=== PATIENT | female | born 1945 | race Caucasian/White ===

== ENCOUNTER 2016-10-18 15:10 | Inpatient (IN) | payer OTHER ==
[~2016-10-18] VITALS: Ht 152.4 cm; Wt 56.0 kg
[~2016-10-18 15:10] MED LIST: ASPI325T45 PO; CALC-214; CHOL100010 PO; IPRA1AER2 INH; LORA-741 PO; MOME200A INH; MULT-506 PO; SIMV10TA2 PO
[2016-10-18] MEDS ORDERED: LEVALBUTEROL 1.25MG/0.5ML NEB INH STA (15:43)
[2016-10-18] MEDS ORDERED: METHYLPREDNISOLONE 125 MG VIAL IV STA (15:43)
[2016-10-18] MEDS ORDERED: IPRATROPIUM BROMIDE NEB SOLN 0.02% 2.5 ML VIAL INH STA (15:43)
[2016-10-18 15:52] LABS: BASO ABS # 0.01 K/uL (0-0.2); COMPLETE YES; HEMATOCRIT 31.9 % (37-47); IG% 0.4 %; LYMPH % 4.6 %; LYMPH ABS # 0.94 K/uL (1.2-3.4); MEAN CELL VOLUME 75.2 fL (80-100); MEAN CORPUSCULAR HEMOGLOBIN 25.9 pg (25-34); MEAN CORPUSCULAR HGB CONC 34.5 g/dl (32-36); MONO % 1.6 %; NEUT % 93.4 %; PLATELET COUNT 789 K/uL (130-400); RED BLOOD COUNT 4.24 M/uL (4.2-5.4); WHITE BLOOD COUNT 20.61 K/uL (4.8-10.8)
--- NOTE | 2016-10-18 15:58 | EMERGENCY ROOM VISIT NOTE ---
History Report prepared by Lillian: Jose Alfredo Smiley Under the Supervision of: Dr. Hero Fleming M.D. First contact with patient: 15:37 Chief Complaint: RESPIRATORY DISTRESS Stated Complaint: RESPIRATORY DISTRESS Nursing Triage Summary: sob started Sunday, started prednisone yesterday History of Present Illness The patient is a 71 year old female who presents to the Emergency Room via ambulance with complaints of worsening shortness of breath beginning four days prior to arrival. She states she called her doctor's office yesterday morning, who prescribed prednisone. The patient notes she took a total of four prednisone dispersed throughout the day. She states she called her doctor this morning, who told her she needed to take all four pills at once. The patient notes she took the dose at 11 AM and has not had any relief from the steroid. She states the ambulance gave her one nebulizer treatment which provided some relief. The patient denies wearing oxygen normally. She states she does have an inhaler and nebulizer at home. The patient notes a history of COPD, emphysema, and a lesion on her right bottom lung. She states she had CTs and a biopsy performed on her lesion, in which, the tests were inconclusive. The patient notes her doctor recommended getting it removed, but she refused. She denies chest pain and a fever. 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 A total of 10 systems reviewed and were otherwise negative. Past Medical & Surgical Medical Problems: (1) COPD (chronic obstructive pulmonary disease) (2) Emphysema (subcutaneous) (surgical) resulting from a procedure Family History Patient reports no known family medical history. Social History Smoking Status: Current Every Day Smoker Marital Status: Occupation Status: employed Current/Historical Medications Scheduled Aspirin (Aspirin Ec), 81 MG PO DAILY Cholecalciferol (Vitamin D), 1,000 UNIT PO DAILY Ipratropium-Albuterol (Duoneb), 1 TREATMENT INH QID Lorazepam (Ativan), 0.5 MG PO HS Mometasone Furoate-Formoterol (Dulera 200/5 Mcg), 2 PUFFS INH DAILY Multiple Vitamins W/ Minerals (Multivitamin Adults 50+), 1 TAB PO DAILY Prednisone (Prednisone), 40 MG PO DAILY Simvastatin (Zocor), 10 MG PO QPM Allergies Uncoded Allergies: anesthesia gas (Allergy, Unknown, sick, 03/17/16) Physical Exam Vital Signs Date Time Temp Pulse Resp B/P Pulse Ox O2 Delivery O2 Flow Rate FiO2 10/18/16 16:47 93 Nasal Cannula 2.0 10/18/16 16:40 96 21 94 10/18/16 16:28 163/83 10/18/16 16:10 95 22 96 10/18/16 15:58 142/79 10/18/16 15:44 90 10/18/16 15:40 101 24 94 10/18/16 15:33 93 Nasal Cannula 2.0 10/18/16 15:33 89 Room Air 10/18/16 15:30 36.4 97 27 147/84 Room Air 10/18/16 15:29 147/84 Physical Exam GENERAL: Patient is in no acute distress. HEENT: No acute trauma, normocephalic atraumatic, mucous membranes moist, no nasal congestion, no scleral icterus. NECK: No stridor, no adenopathy, no meningismus, trachea is midline. LUNGS: Mild respiratory distress noted. Speaking in shorter sentences. There is an increased respiratory rate. Diminished breath sounds bilaterally. Breath sounds are equal bilaterally. Wheezes noted. HEART: Without murmurs gallops or rubs, regular rate and rhythm. ABDOMEN: Soft, nontender, bowel sounds positive, no hernias, no peritonitis. EXTREMITIES: No cyanosis or edema, full range of motion of all the joints without pain or difficulty, no signs for acute trauma. NEUROLOGIC: Oriented x 3, no acute motor or sensory deficits, no focal weakness. SKIN: No rash, no jaundice, no diaphoresis. Medical Decision & Procedures ER Provider Diagnostic Interpretation: X-ray results as stated below per interpretation by me and the radiologist: SINGLE VIEW CHEST CLINICAL HISTORY: Dyspnea. FINDINGS: An AP, portable, upright chest radiograph is compared to study dated 03/17/2016 and correlated with chest CT dated 02/17/2014. The examination is degraded by portable technique and patient rotation. The cardiomediastinal silhouette is unremarkable. There is atherosclerotic calcification of the thoracic aorta. Advanced emphysema and chronic interstitial thickening are similar to previous. A large mass lesion in the right lower lung has slightly increased in size from the 03/17/2016 examination. There is no evidence of superimposed airspace consolidation or pleural effusion. A calcified granulomas again seen in the left upper lobe. No pneumothorax is seen. The skeletal structures are osteopenic. The bony thorax is grossly intact. IMPRESSION: 1. There is no acute cardiopulmonary abnormality. 2. Advanced emphysema is again seen. A large mass lesion in the right lower lung has modestly increased in size from the 2016 examination. Electronically signed by: Hero Cabrera M.D. 10/18/2016 4:00 PM Laboratory Results 10/18/16 14:53 Red Blood Count 4.24, Mean Corpuscular Volume 75.2, Mean Corpuscular Hemoglobin 25.9, Mean Corpuscular Hemoglobin Concent 34.5, Mean Platelet Volume 8.0, Neutrophils (%) (Auto) 93.4, Lymphocytes (%) (Auto) 4.6, Monocytes (%) (Auto) 1.6, Eosinophils (%) (Auto) 0.0, Basophils (%) (Auto) 0.0, Neutrophils # (Auto) 19.26, Lymphocytes # (Auto) 0.94, Monocytes # (Auto) 0.32, Eosinophils # (Auto) 0.00, Basophils # (Auto) 0.01 10/18/16 14:53 Test 10/18/16 14:53 10/18/16 16:25 White Blood Count 20.61 K/uL (4.8-10.8) Red Blood Count 4.24 M/uL (4.2-5.4) Hemoglobin 11.0 g/dL (12.0-16.0) Hematocrit 31.9 % (37-47) Mean Corpuscular Volume 75.2 fL (80-100) Mean Corpuscular Hemoglobin 25.9 pg (25-34) Mean Corpuscular Hemoglobin Concent 34.5 g/dl (32-36) Platelet Count 789 K/uL (130-400) Mean Platelet Volume 8.0 fL (7.4-10.4) Neutrophils (%) (Auto) 93.4 % Lymphocytes (%) (Auto) 4.6 % Monocytes (%) (Auto) 1.6 % Eosinophils (%) (Auto) 0.0 % Basophils (%) (Auto) 0.0 % Neutrophils # (Auto) 19.26 K/uL (1.4-6.5) Lymphocytes # (Auto) 0.94 K/uL (1.2-3.4) Monocytes # (Auto) 0.32 K/uL (0.11-0.59) Eosinophils # (Auto) 0.00 K/uL (0-0.5) Basophils # (Auto) 0.01 K/uL (0-0.2) RDW Standard Deviation 43.8 fL (36.4-46.3) RDW Coefficient of Variation 16.0 % (11.5-14.5) Immature Granulocyte % (Auto) 0.4 % Immature Granulocyte # (Auto) 0.08 K/uL (0.00-0.02) Prothrombin Time 10.7 SECONDS (9.0-12.0) Prothromb Time International Ratio 1.0 (0.9-1.1) Activated Partial Thromboplast Time 34.3 SECONDS (21.0-31.0) Partial Thromboplastin Ratio 1.3 Anion Gap 13.0 mmol/L (3-11) Est Creatinine Clear Calc Drug Dose 52.7 ml/min Estimated GFR () 89.3 Estimated GFR (Non- 77.0 BUN/Creatinine Ratio 15.8 (10-20) Osmolality 274 mOsm/kg (280-300) Calcium Level 10.5 mg/dl (8.5-10.1) Total Bilirubin 0.2 mg/dl (0.2-1) Aspartate Amino Transf (AST/SGOT) 19 U/L (15-37) Alanine Aminotransferase (ALT/SGPT) 24 U/L (12-78) Alkaline Phosphatase 109 U/L (45-117) Troponin I < 0.015 ng/ml (0-0.045) Total Protein 9.0 gm/dl (6.4-8.2) Albumin 2.9 gm/dl (3.4-5.0) Globulin 6.1 gm/dl (2.5-4.0) Albumin/Globulin Ratio 0.5 (0.9-2) Urine Osmolality 352 mOms/kg (500-800) Laboratory results reviewed by me. Medications Administered Medications (Trade) Dose Ordered Sig/Channing Route Start Time Stop Time Status Last Admin Dose Admin Methylprednisolone Sodium Succinate (Solu-Medrol IV) 60 mg NOW STAT IV 10/18/16 15:43 10/18/16 15:46 DC 10/18/16 16:43 60 MG Levalbuterol (Xopenex 1.25MG/ 0.5ML Neb) 1.25 mg NOW STAT INH 10/18/16 15:43 10/18/16 15:46 DC 10/18/16 16:50 1.25 MG Ipratropium [place] (Atrovent 0.02% 0.5MG/2.5ML Neb) 0.5 mg NOW STAT INH 10/18/16 15:43 10/18/16 15:46 DC 10/18/16 16:50 0.5 MG Ceftriaxone Sodium (Rocephin Inj) 1 gm NOW STAT IV 10/18/16 16:27 10/18/16 16:28 DC 10/18/16 16:43 1 GM ECG Indication: SOB/dyspnea Rate (beats per minute): 94 Rhythm: normal sinus Findings: no acute ischemic change, no ectopy ED Course 1539: The patient was evaluated in room A12B. A complete history and physical exam was performed. 1543: Ordered Ipratropium [place] 0.5 mg INH, Levalbuterol 1.25 mg INH, Solu- Medrol IV 60 mg IV. 1627: Ordered Rocephin Inj 1 gm IV. 1638: Reevaluated the patient at this time and updated her on the test results. She is agreeable to the treatment plan. 1640: I spoke to CHON Chiu (Hospitalist) about the patient's case, and he will follow the patient for further evaluation. Medical Decision The differential diagnoses include but are not limited to: exacerbation of COPD , pneumonia, pneumothorax, CHF, cardiac ischemia, failed outpatient treatment. There is a significant leukocytosis at 20,000. This could be consistent with infection or possibly her steroid use. No concerning anemia. No significant electrolyte abnormality, kidney failure or hepatitis. EKG shows a normal sinus rhythm, no acute ischemia. Cardiac enzyme testing times one is not suggestive of acute cardiac injury. Chest film shows a right lung mass consistent with her past history, it appears larger than previous films. There is no pneumonia or pneumothorax. The patient was given a Xopenex Atrovent neb, she received IV saline, she was given IV Solu-Medrol and IV ceftriaxone. The patient requires admission/observation. She is failing outpatient treatment. She very likely has an acute bronchitis with an exacerbation of her COPD. She feels better since being treated here in the ER. Consults Time Called: 1639 Consulting Physician: CHON Chiu (Hospitalist) Returned Call: 1640 I spoke to CHON Chiu (Hospitalist) about the patient's case, and he will follow the patient for further evaluation. Impression Primary Impression: COPD exacerbation Additional Impression: Acute bronchitis Scribe Attestation The scribe's documentation has been prepared under my direction and personally reviewed by me in its entirety. I confirm that the note above accurately reflects all work, treatment, procedures, and medical decision making performed by me. Departure Information Dispostion Being Evaluated By Hospitalist (HCON Chiu (Hospitalist)) Referrals Sanjay Pedroza D.O. Pulmonary (PCP) Problem Qualifiers
[2016-10-18 15:59] LABS: PARTIAL THROMBOPLASTIN RATIO 1.3; PROTHROMBIN TIME (PATIENT) 10.7 SECONDS (9.0-12.0)
[2016-10-18 16:02] LABS: ALT/SGPT 24 U/L (12-78); AST/SGOT 19 U/L (15-37); BLOOD UREA NITROGEN 12 mg/dl (7-18); BUN/CREATININE RATIO 15.8 (10-20); CALCIUM 10.5 mg/dl (8.5-10.1); CARBON DIOXIDE 24 mmol/L (21-32); CHLORIDE 92 mmol/L (98-107); CREATININE 0.78 mg/dl (0.60-1.20); GLUCOSE 136 mg/dl (70-99); POTASSIUM 4.2 mmol/L (3.5-5.1); SODIUM 129 mmol/L (136-145)
--- NOTE | 2016-10-18 16:02 | DIAGNOSTIC IMAGING REPORT ---
SINGLE VIEW CHEST CLINICAL HISTORY: Dyspnea. FINDINGS: An AP, portable, upright chest radiograph is compared to study dated 03/17/2016 and correlated with chest CT dated 02/17/2014. The examination is degraded by portable technique and patient rotation. The cardiomediastinal silhouette is unremarkable. There is atherosclerotic calcification of the thoracic aorta. Advanced emphysema and chronic interstitial thickening are similar to previous. A large mass lesion in the right lower lung has slightly increased in size from the 03/17/2016 examination. There is no evidence of superimposed airspace consolidation or pleural effusion. A calcified granulomas again seen in the left upper lobe. No pneumothorax is seen. The skeletal structures are osteopenic. The bony thorax is grossly intact. IMPRESSION: 1. There is no acute cardiopulmonary abnormality. 2. Advanced emphysema is again seen. A large mass lesion in the right lower lung has modestly increased in size from the 2016 examination. Electronically signed by: Hero Cabrera M.D. 10/18/2016 4:00 PM Dictated Date/Time: 10/18/2016 3:57 PM
[2016-10-18 16:07] LABS: ALB/GLOB RATIO 0.5 (0.9-2); ALKALINE PHOSPHATASE 109 U/L (45-117)
[2016-10-18] MEDS ORDERED: CEFTRIAXONE SOD INJ 1 GM ADDVIAL IV STA (16:27)
[2016-10-18] MEDS ORDERED: IPRASOL4 INH (16:29)
[2016-10-18] MEDS ORDERED: MULT-916 PO (16:29)
[2016-10-18] MEDS ORDERED: CHOL100010 PO (16:29)
[2016-10-18] MEDS ORDERED: ASPI81TA28 PO (16:30)
[2016-10-18] MEDS ORDERED: PRED10TA PO (16:30)
[2016-10-18] MEDS ORDERED: ONDANSETRON INJ 2 MG/ML 2 ML VIAL IV PRN (17:00)
--- NOTE | 2016-10-18 17:28 | History and Physical ---
History & Physical Date & Time of Service: Oct 18, 2016 at 17:15 Chief Complaint: Respiratory Distress Primary Care Physician: Sanjay Pedroza D.O. Pulmonary History of Present Illness Source: patient, family, hospital records 71 yo female with history of COPD/emphysema followed by Dr. Pedroza, she started to feel more short of breath with a harsh cough on Sunday (5 days ago). She was compliant with her home inhalers and tried to utilize her nebulizers more frequently but her breathing and the cough got worse. No fever or chills. The cough is intermittently productive, her sputum is thicker than normal. Two days ago she was prescribed Prednisone 40mg daily by Dr. Pedroza but her breathing deteriorated to the point that she called EMS today. In the ED she was slightly hypoxic with saturations in the high 80's on room air. The CXR did not show any signs of pneumonia, it did show a right sided mass that has been there since 2010. The patient was given Solumedrol, nebulizers and she started to feel better. She admits that she has been drinking fluids but not eating much the past few days. Discussed the right sided mass, she says that Dr. Pedroza performed a bronchoscopy with biopsies and no evidence of malignant cells. He has been watching the mass and she is actually due for a repeat CT scan of the chest. The CXR in the ED showed that the mass was slightly larger compared to 2016 study so we will get the CT while in the hospital. Past Medical/Surgical History Medical Problems: (1) COPD (chronic obstructive pulmonary disease) Status: Chronic (2) Emphysema (subcutaneous) (surgical) resulting from a procedure Status: Chronic Family History Mother - of lymphoma Father - of Campbell's chorea Social History Smoking Status: Current Every Day Smoker Marital Status: Occupational Status: employed Multi-Drug Resistant Organisms History of MDRO: No Allergies Uncoded Allergies: anesthesia gas (Allergy, Unknown, sick, 03/17/16) Home Medications Scheduled Aspirin (Aspirin Ec), 81 MG PO DAILY Cholecalciferol (Vitamin D), 1,000 UNIT PO DAILY Ipratropium-Albuterol (Duoneb), 1 TREATMENT INH QID Lorazepam (Ativan), 0.5 MG PO HS Mometasone Furoate-Formoterol (Dulera 200/5 Mcg), 2 PUFFS INH DAILY Multiple Vitamins W/ Minerals (Multivitamin Adults 50+), 1 TAB PO DAILY Prednisone (Prednisone), 40 MG PO DAILY Simvastatin (Zocor), 10 MG PO QPM Review of Systems Constitutional: + fatigue, + weakness, No chills, No fever, No problem reported , No sweats, No weight loss Eyes: No diplopia, No discharge, No eye pain, No problem reported, No redness, No worsening of vision ENT: No dental problems, No hearing loss, No nasal symptoms, No problem reported, No sore throat, No tinnitus, No trouble swallowing, No unusual epistaxis Respiratory: + cough, + dyspnea at rest, + dyspnea on exertion, + shortness of breath, + sputum, + wheezing, No hemoptysis Cardiovascular: No PND, No chest pain, No claudication, No edema, No orthopnea , No palpitations, No problem reported Abdomen: + problem reported (poor appetite), No GI bleeding, No constipation, No diarrhea, No nausea, No pain, No vomiting Musculoskeletal: No calf pain, No joint pain, No muscle pain, No problem reported, No swelling Genitourinary - Female: No dysuria, No hematuria, No urinary frequency, No urinary incontinence, No urinary retention, No urinary urgency Neurologic: No balance problems, No memory loss, No numbness/tingling, No paralysis, No problem reported, No vertigo, No weakness Endocrine: No excessive thirst, No excessive urination, No fatigue, No problem reported Hematologic / Lymphatic: No abnormal bleeding/bruising, No clotting problems, No night sweats, No problem reported, No swollen lymph nodes Integumentary: No bleeding, No color change, No itch, No new/changing skin lesions, No problem reported, No rash Allergic / Immunologic: No environmental allergies, No food allergies, No frequent infections, No hives, No pet sensitivities, No poor healing, No problem reported, No prolonged convalescence, No seasonal allergies Physical Exam Vital Signs Date Time Temp Pulse Resp B/P Pulse Ox O2 Delivery O2 Flow Rate FiO2 10/18/16 16:47 93 Nasal Cannula 2.0 10/18/16 16:40 96 21 94 10/18/16 16:28 163/83 10/18/16 16:10 95 22 96 10/18/16 15:58 142/79 10/18/16 15:44 90 10/18/16 15:40 101 24 94 10/18/16 15:33 93 Nasal Cannula 2.0 10/18/16 15:33 89 Room Air 10/18/16 15:30 36.4 97 27 147/84 Room Air 10/18/16 15:29 147/84 General Appearance: no apparent distress, + thin Head: normocephalic, atraumatic Eyes: normal inspection, EOMI, sclerae normal ENT: normal ENT inspection, hearing grossly normal, pharynx normal Neck: supple, no adenopathy, no JVD, trachea midline Respiratory/Chest: chest non-tender, no respiratory distress, no accessory muscle use, + decreased breath sounds, + wheezing Cardiovascular: regular rate, rhythm, no edema, no gallop, no JVD, no murmur, normal peripheral pulses Abdomen/GI: normal bowel sounds, non tender, soft, no organomegaly Back: normal inspection, no CVA tenderness, no muscle spasm, normal range of motion Extremities/Musculoskelatal: normal inspection, no calf tenderness, normal capillary refill, no pedal edema, normal range of motion, pelvis stable Neurologic/Psych: social media specialist II-XII nml as tested, no motor/sensory deficits, alert, normal mood/affect, normal reflexes, oriented x 3 Skin: normal color, warm/dry, no rash Lymphatic: no adenopathy Diagnostics Laboratory Results Results Past 24 Hours Test 10/18/16 14:53 Range/Units White Blood Count 20.61 4.8-10.8 K/uL Red Blood Count 4.24 4.2-5.4 M/uL Hemoglobin 11.0 12.0-16.0 g/dL Hematocrit 31.9 37-47 % Mean Corpuscular Volume 75.2 80-100 fL Mean Corpuscular Hemoglobin 25.9 25-34 pg Mean Corpuscular Hemoglobin Concent 34.5 32-36 g/dl Platelet Count 789 130-400 K/uL Mean Platelet Volume 8.0 7.4-10.4 fL Neutrophils (%) (Auto) 93.4 % Lymphocytes (%) (Auto) 4.6 % Monocytes (%) (Auto) 1.6 % Eosinophils (%) (Auto) 0.0 % Basophils (%) (Auto) 0.0 % Neutrophils # (Auto) 19.26 1.4-6.5 K/uL Lymphocytes # (Auto) 0.94 1.2-3.4 K/uL Monocytes # (Auto) 0.32 0.11-0.59 K/uL Eosinophils # (Auto) 0.00 0-0.5 K/uL Basophils # (Auto) 0.01 0-0.2 K/uL RDW Standard Deviation 43.8 36.4-46.3 fL RDW Coefficient of Variation 16.0 11.5-14.5 % Immature Granulocyte % (Auto) 0.4 % Immature Granulocyte # (Auto) 0.08 0.00-0.02 K/uL Prothrombin Time 10.7 9.0-12.0 SECONDS Prothromb Time International Ratio 1.0 0.9-1.1 Activated Partial Thromboplast Time 34.3 21.0-31.0 SECONDS Partial Thromboplastin Ratio 1.3 Sodium Level 129 136-145 mmol/L Potassium Level 4.2 3.5-5.1 mmol/L Chloride Level 92 98-107 mmol/L Carbon Dioxide Level 24 21-32 mmol/L Anion Gap 13.0 3-11 mmol/L Blood Urea Nitrogen 12 7-18 mg/dl Creatinine 0.78 0.60-1.20 mg/dl Est Creatinine Clear Calc Drug Dose 52.7 ml/min Estimated GFR () 89.3 Estimated GFR (Non- 77.0 BUN/Creatinine Ratio 15.8 10-20 Random Glucose 136 70-99 mg/dl Calcium Level 10.5 8.5-10.1 mg/dl Total Bilirubin 0.2 0.2-1 mg/dl Aspartate Amino Transf (AST/SGOT) 19 15-37 U/L Alanine Aminotransferase (ALT/SGPT) 24 12-78 U/L Alkaline Phosphatase 109 45-117 U/L Troponin I < 0.015 0-0.045 ng/ml Total Protein 9.0 6.4-8.2 gm/dl Albumin 2.9 3.4-5.0 gm/dl Globulin 6.1 2.5-4.0 gm/dl Albumin/Globulin Ratio 0.5 0.9-2 Microbiology Results 10/18/16 Blood Culture, Received Pending 10/18/16 Blood Culture, Received Pending Diagnostic Radiology CXR: right sided mass, larger compared to 2016 study, no evidence of infiltrate Normal EKG Impression Assessment and Plan 71 yo female with h/o emphysema, here with acute bronchitis and COPD exacerbation - COPD exacerbation: Solumedrol 30mg q12, nebulizers, Rocephin and Zithromax resume home maintenance inhalers once breathing improved - Acute respiratory failure with hypoxia: supplemental oxygen, should resolve with COPD therapy - Right lung mass: slightly larger on chest x-ray compared to 2016, will get CT chest tomorrow follows with Dr. Pedroza, he performed biopsy in past with no malignancy patient says that Dr. Pedroza recommended resection of the mass but she refused , has been there since 2010 - Hyponatremia: likely due to dehydration, poor solute intake past few days, however, could be SIADH given the right lung mass check urine and serum osmolality, treat with NSS 75cc/hr - Hyperlipidemia: statin therapy - DVT prophylaxis: Lovenox Level of Care Med/Surg Resuscitation Status FULL RESUSCITATION VTE Prophylaxis VTE Risk Assessment Done? Y/N: Yes Risk Level: Moderate Given or contraindicated: Enoxaparin (Lovenox)SQ Additional Copies To Sanjay Pedroza D.O. Pulmonary
[2016-10-18] MEDS: SODIUM CHLORIDE 0.9% 1000ML 1,000 ML IV SCH (20:36)
[2016-10-18] MEDS: AZITHROMYCIN IV 500 MG in DEXTROSE 5% 250ML 250 ML IV SCH (20:36)
[2016-10-18] MEDS: LORAZEPAM 0.5 MG TAB PO SCH (20:37)
[2016-10-18] MEDS: METHYLPREDNISOLONE IV 30 MG in SYRINGE 0 ML IV SCH (20:37)
[2016-10-18] MEDS: SIMVASTATIN 10 MG TAB PO SCH (20:41)
[2016-10-18] MEDS: ALBUT/IPRATROP 3MG/0.5MG NEB 3 ML VIAL INH SCH (21:20)
[2016-10-18 21:22] VITALS: PULSE 76; O2SAT 98
[2016-10-18 23:14] VITALS: BP 127/64; PULSE 100; TEMP 36.5; O2SAT 94
[2016-10-19] VITALS (8 sets, daily range): BP systolic 102–118; BP diastolic 63–83; PULSE 86–93; TEMP 36.4–36.5; O2SAT 96–98; Ht 152.4 cm; Wt 56.0 kg
[2016-10-19] MEDS ORDERED: LORAZEPAM 0.5 MG TAB PO STA (00:59)
[2016-10-19] MEDS: SODIUM CHLORIDE 0.9% 1000ML 1,000 ML IV SCH ×2 (06:15→19:57)
[2016-10-19] MEDS: ALBUT/IPRATROP 3MG/0.5MG NEB 3 ML VIAL INH SCH ×4 (06:54→15:35)
[2016-10-19] MEDS: METHYLPREDNISOLONE IV 30 MG in SYRINGE 0 ML IV SCH ×2 (08:09→17:44)
[2016-10-19] MEDS: ENOXAPARIN 40 MG/0.4 ML SYR SQ SCH (08:15)
[2016-10-19] MEDS: CHOLECALCIFEROL 1000 INTER.UNIT TAB PO SCH (08:16)
[2016-10-19] MEDS: ASPIRIN 81 MG ECTAB PO SCH (08:16)
--- NOTE | 2016-10-19 09:26 | DIAGNOSTIC IMAGING REPORT ---
CHEST CT WITH CONTRAST CT DOSE: 240.37 mGy.cm HISTORY: Respiratory distress. right sided mass, larger on chest x-ray TECHNIQUE: Multiaxial CT images of the chest were performed following the intravenous administration of contrast. COMPARISON: Chest CT 02/17/2014. Chest 10/18/2016. FINDINGS: No pneumothorax. Emphysema. A 5 mm nodule within the lingula on image 204. There is a new spiculated nodule within the left lower lobe which measures 2.1 x 1.2 cm. Linear density within the medial aspect of the right middle lobe may represent atelectasis. Significant increase in size in a large mass which occupies the majority of the right lower lobe. This lesion measures 11 cm and appears necrotic. This encases the right lower lobar pulmonary arteries and right lower lobe bronchi. There is obstruction of the right lower lobe bronchi. Mildly enlarged right hilar lymph node measuring 11 mm. This large necrotic mass abuts the pleural surface. Mild cortical/periosteal thickening within the right posterior eighth and ninth ribs adjacent to the large lower lobe mass. However, there is no associated bony destruction. This mass also encases the right inferior pulmonary vein. No supraclavicular or mediastinal lymphadenopathy. The heart is normal in size. Normal caliber thoracic aorta. Calcified left hilar lymph nodes and a left upper lobe calcified granuloma. The central pulmonary arteries are patent. No pleural or pericardial effusions. No hepatic or splenic masses identified. Normal adrenal glands. There is a 4 cm mass within the upper pole of the left kidney. Small nodular densities and interlobular septal thickening at the base of the right lower lobe. This could be due to postobstructive pneumonitis or metastatic disease. Small fat-containing right Bochdalek hernia. IMPRESSION: 1. Significant increase in size in the 11 cm necrotic mass which occupies the majority of the right lower lobe and obstruction of right lower lobe bronchi. 2. Interval development of a spiculated 2.1 x 1.2 cm nodule within the left lower lobe and a 5 mm nodule within the lingula. This could represent metachronous primary bronchogenic malignancy versus metastatic disease. 3. A 4 cm mass within the upper pole of the left kidney. This likely represents a renal cell carcinoma. 4. Small nodular densities and interlobular septal thickening within the base of the right lower lobe which favors post obstructive pneumonitis. However, metastatic disease could also have a similar appearance. 6. Emphysema. 7. Mild cortical/periosteal thickening within the right posterior eighth and ninth ribs adjacent to the large lower lobe mass. However, there is no associated bony destruction. Electronically signed by: Silas Gross M.D. 10/19/2016 9:25 AM Dictated Date/Time: 10/19/2016 9:11 AM
--- NOTE | 2016-10-19 09:48 | Hospitalist Progress Note ---
Hospitalist Progress Note Date of Service Oct 19, 2016. (Christy David PA-C) Subjective Pt evaluation today including: conversation w/ patient, physical exam, chart review, lab review, review of studies, conversation w/ pharmacy consultant, review of inpatient medication list Patient reports feeling very winded this morning while ambulating to the bathroom. Still having a fairly nonproductive cough. No fever or chills. The patient was on prednisone 40 mg daily prior to arrival in the emergency department. She denies any chest pain or pressure. Additional Comments: 6 system review negative. Please see pertinent positives in the history of present illness section. (Christy David PA-C) Objective Vital Signs Date Time Temp Pulse Resp B/P Pulse Ox O2 Delivery O2 Flow Rate FiO2 10/19/16 06:54 92 20 96 Nasal Cannula 2.0 10/19/16 05:18 36.4 93 20 118/63 96 Nasal Cannula 2.0 10/18/16 23:14 36.5 100 18 127/64 94 Nasal Cannula 2.0 10/18/16 21:22 76 18 98 Nasal Cannula 3.0 10/18/16 17:58 95 18 117/84 94 Nasal Cannula 2.0 10/18/16 16:47 93 Nasal Cannula 2.0 10/18/16 16:40 96 21 94 10/18/16 16:28 163/83 10/18/16 16:10 95 22 96 10/18/16 15:58 142/79 10/18/16 15:44 90 10/18/16 15:40 101 24 94 10/18/16 15:33 93 Nasal Cannula 2.0 10/18/16 15:33 89 Room Air 10/18/16 15:30 36.4 97 27 147/84 Room Air 10/18/16 15:29 147/84 (Christy David PA-C) Physical Exam Notes: VITALS: Vitals are noted on the nurse's note and reviewed by myself. Vital signs stable. GENERAL: 71-year-old female in moderate respiratory distress standing up by the bathroom sink, SKIN: The skin was without rashes, erythema, edema, or bruising. HEAD: Normocephalic atraumatic. NECK: No lymphadenopathy. No JVD. HEART: Regular rate and rhythm without murmurs gallops or rubs. LUNGS: Decreased breath sounds at the bases right greater than left. No significant wheezing noted. ABDOMEN: Positive bowel sounds x 4.Soft, MUSCULOSKELETAL: No muscle atrophy, erythema, or edema noted. Normal gait. Strength 5/5 throughout. NEURO: Patient was alert and oriented to person place and time. Normal sensation to touch. No focal neurological deficits. (Christy David PA-C) Laboratory Results 10/18/16 14:53 Red Blood Count 4.24, Mean Corpuscular Volume 75.2, Mean Corpuscular Hemoglobin 25.9, Mean Corpuscular Hemoglobin Concent 34.5, Mean Platelet Volume 8.0, Neutrophils (%) (Auto) 93.4, Lymphocytes (%) (Auto) 4.6, Monocytes (%) (Auto) 1.6, Eosinophils (%) (Auto) 0.0, Basophils (%) (Auto) 0.0, Neutrophils # (Auto) 19.26, Lymphocytes # (Auto) 0.94, Monocytes # (Auto) 0.32, Eosinophils # (Auto) 0.00, Basophils # (Auto) 0.01 Test 10/18/16 14:53 10/18/16 16:25 10/19/16 09:28 White Blood Count 20.61 K/uL (4.8-10.8) Red Blood Count 4.24 M/uL (4.2-5.4) Hemoglobin 11.0 g/dL (12.0-16.0) Hematocrit 31.9 % (37-47) Mean Corpuscular Volume 75.2 fL (80-100) Mean Corpuscular Hemoglobin 25.9 pg (25-34) Mean Corpuscular Hemoglobin Concent 34.5 g/dl (32-36) Platelet Count 789 K/uL (130-400) Mean Platelet Volume 8.0 fL (7.4-10.4) Neutrophils (%) (Auto) 93.4 % Lymphocytes (%) (Auto) 4.6 % Monocytes (%) (Auto) 1.6 % Eosinophils (%) (Auto) 0.0 % Basophils (%) (Auto) 0.0 % Neutrophils # (Auto) 19.26 K/uL (1.4-6.5) Lymphocytes # (Auto) 0.94 K/uL (1.2-3.4) Monocytes # (Auto) 0.32 K/uL (0.11-0.59) Eosinophils # (Auto) 0.00 K/uL (0-0.5) Basophils # (Auto) 0.01 K/uL (0-0.2) RDW Standard Deviation 43.8 fL (36.4-46.3) RDW Coefficient of Variation 16.0 % (11.5-14.5) Immature Granulocyte % (Auto) 0.4 % Immature Granulocyte # (Auto) 0.08 K/uL (0.00-0.02) Prothrombin Time 10.7 SECONDS (9.0-12.0) Prothromb Time International Ratio 1.0 (0.9-1.1) Activated Partial Thromboplast Time 34.3 SECONDS (21.0-31.0) Partial Thromboplastin Ratio 1.3 Est Creatinine Clear Calc Drug Dose 52.7 ml/min Osmolality 274 mOsm/kg (280-300) Total Bilirubin 0.2 mg/dl (0.2-1) Aspartate Amino Transf (AST/SGOT) 19 U/L (15-37) Alanine Aminotransferase (ALT/SGPT) 24 U/L (12-78) Alkaline Phosphatase 109 U/L (45-117) Troponin I < 0.015 ng/ml (0-0.045) Total Protein 9.0 gm/dl (6.4-8.2) Albumin 2.9 gm/dl (3.4-5.0) Globulin 6.1 gm/dl (2.5-4.0) Albumin/Globulin Ratio 0.5 (0.9-2) Urine Osmolality 352 mOms/kg (500-800) Last 24 Hours Test 10/18/16 14:53 10/18/16 16:25 10/19/16 09:28 White Blood Count 20.61 K/uL Red Blood Count 4.24 M/uL Hemoglobin 11.0 g/dL Hematocrit 31.9 % Mean Corpuscular Volume 75.2 fL Mean Corpuscular Hemoglobin 25.9 pg Mean Corpuscular Hemoglobin Concent 34.5 g/dl Platelet Count 789 K/uL Mean Platelet Volume 8.0 fL Neutrophils (%) (Auto) 93.4 % Lymphocytes (%) (Auto) 4.6 % Monocytes (%) (Auto) 1.6 % Eosinophils (%) (Auto) 0.0 % Basophils (%) (Auto) 0.0 % Neutrophils # (Auto) 19.26 K/uL Lymphocytes # (Auto) 0.94 K/uL Monocytes # (Auto) 0.32 K/uL Eosinophils # (Auto) 0.00 K/uL Basophils # (Auto) 0.01 K/uL RDW Standard Deviation 43.8 fL RDW Coefficient of Variation 16.0 % Immature Granulocyte % (Auto) 0.4 % Immature Granulocyte # (Auto) 0.08 K/uL Prothrombin Time 10.7 SECONDS Prothromb Time International Ratio 1.0 Activated Partial Thromboplast Time 34.3 SECONDS Partial Thromboplastin Ratio 1.3 Sodium Level 129 mmol/L Potassium Level 4.2 mmol/L Chloride Level 92 mmol/L Carbon Dioxide Level 24 mmol/L Anion Gap 13.0 mmol/L Blood Urea Nitrogen 12 mg/dl Creatinine 0.78 mg/dl Est Creatinine Clear Calc Drug Dose 52.7 ml/min Estimated GFR () 89.3 Estimated GFR (Non- 77.0 BUN/Creatinine Ratio 15.8 Random Glucose 136 mg/dl Osmolality 274 mOsm/kg Calcium Level 10.5 mg/dl Total Bilirubin 0.2 mg/dl Aspartate Amino Transf (AST/SGOT) 19 U/L Alanine Aminotransferase (ALT/SGPT) 24 U/L Alkaline Phosphatase 109 U/L Troponin I < 0.015 ng/ml Total Protein 9.0 gm/dl Albumin 2.9 gm/dl Globulin 6.1 gm/dl Albumin/Globulin Ratio 0.5 Urine Osmolality 352 mOms/kg (Christy David, PA-C) Assessment and Plan 71-year-old female with a history of reported emphysema/COPD and right pulmonary mass presented to the emergency department with dyspnea on exertion, nonproductive cough and hypoxia. She does not typically require oxygen at home. COPD exacerbation, acute respiratory failure with hypoxia -Given the amount of dyspnea the patient is having, I will increase her steroids to Solu-Medrol 30 mg IV q 8h -Continue scheduled DuoNeb's every 6 hours and every 2 hours PRN -Continue Rocephin and Zithromax for now -O2 as needed Pulmonary mass-CT reviewed. This is quite large and likely contributing to her symptoms and affecting her daily living -Thoracic surgery consult Hyponatremia-serum osmol slightly low, urine osmolality low-? SIADH -Check PRP now--> will adjust IVF if necessary (currently on NS @ 75 cc/hr) -Daily PRP Hyperlipidemia -Continue statin DVT prophylaxis -Lovenox 40 mg subQ daily -TEDS, SCDs CODE STATUS -LEVEL I FULL CODE (Christy David, PA-C) I agree with PA assessment and plan COPD exacerbation Hemodynamically stable Cont steroids and ativan PRN anxiety Duonebs ATC (Andrew Patel, D.O.)
[2016-10-19 11:03] LABS: BUN/CREATININE RATIO 20.3 (10-20); CALCIUM 9.7 mg/dl (8.5-10.1); CREATININE 0.82 mg/dl (0.60-1.20); POTASSIUM 4.4 mmol/L (3.5-5.1)
[2016-10-19] MEDS ORDERED: NURSING VERBAL MED ORDER ONE ×4 (12:15→15:45)
[2016-10-19] MEDS ORDERED: MOMETASONE FUROATE-FORMOTEROL (DULERA) 200mcg/5mcg per inh INH SCH (13:20)
[2016-10-19] MEDS ORDERED: LORAZEPAM 0.5 MG TAB PO ONE (14:45)
[2016-10-19] MEDS ORDERED: MOMETASONE FUROATE-FORMOTEROL (DULERA) 200mcg/5mcg per inh INH PRN (16:00)
[2016-10-19] MEDS ORDERED: LEVALBUTEROL 1.25MG/0.5ML NEB INH PRN (16:00)
[2016-10-19] MEDS ORDERED: IPRATROPIUM BROMIDE NEB SOLN 0.02% 2.5 ML VIAL INH PRN (16:00)
[2016-10-19] MEDS: CEFTRIAXONE SOD INJ 1,000 MG in DEXTROSE 5% 50ML 50 ML IV SCH (17:44)
[2016-10-19] MEDS: IPRATROPIUM BROMIDE NEB SOLN 0.02% 2.5 ML VIAL INH SCH (19:34)
[2016-10-19] MEDS: LEVALBUTEROL 1.25MG/0.5ML NEB INH SCH (19:35)
[2016-10-19] MEDS: AZITHROMYCIN IV 500 MG in DEXTROSE 5% 250ML 250 ML IV SCH (19:56)
[2016-10-19] MEDS: ACETAMINOPHEN 325 MG TAB PO PRN (19:56)
[2016-10-19] MEDS ORDERED: TROLAMINE SALICYLATE 10% CRM 255 APPLN/85 GM TUBE EXT PRN (20:00)
[2016-10-19] MEDS: LORAZEPAM 0.5 MG TAB PO SCH (21:53)
[2016-10-19] MEDS: MOMETASONE FUROATE-FORMOTEROL (DULERA) 200mcg/5mcg per inh INH SCH (21:54)
[2016-10-19] MEDS: SIMVASTATIN 10 MG TAB PO SCH (21:55)
[2016-10-20] VITALS (11 sets, daily range): BP systolic 122–131; BP diastolic 55–78; PULSE 61–99; TEMP 35.6–36.6; O2SAT 94–98
[2016-10-20] MEDS: METHYLPREDNISOLONE IV 30 MG in SYRINGE 0 ML IV SCH ×3 (01:47→16:49)
[2016-10-20 07:27] LABS: BUN/CREATININE RATIO 19.1 (10-20); CALCIUM 9.7 mg/dl (8.5-10.1); CREATININE 0.89 mg/dl (0.60-1.20); POTASSIUM 4.3 mmol/L (3.5-5.1)
[2016-10-20] MEDS: IPRATROPIUM BROMIDE NEB SOLN 0.02% 2.5 ML VIAL INH SCH ×4 (07:32→20:00)
[2016-10-20] MEDS: LEVALBUTEROL 1.25MG/0.5ML NEB INH SCH ×4 (07:32→20:00)
[2016-10-20] MEDS: MOMETASONE FUROATE-FORMOTEROL (DULERA) 200mcg/5mcg per inh INH SCH ×2 (08:22→21:03)
[2016-10-20] MEDS: CHOLECALCIFEROL 1000 INTER.UNIT TAB PO SCH (08:23)
[2016-10-20] MEDS: ASPIRIN 81 MG ECTAB PO SCH (08:23)
[2016-10-20] MEDS: ENOXAPARIN 40 MG/0.4 ML SYR SQ SCH (08:24)
[2016-10-20] MEDS: SODIUM CHLORIDE 0.9% 1000ML 1,000 ML IV SCH (09:27)
--- NOTE | 2016-10-20 11:11 | Hospitalist Progress Note ---
Hospitalist Progress Note Date of Service Oct 20, 2016. (Christy David PA-C) Subjective Pt evaluation today including: conversation w/ patient, physical exam, chart review, lab review, review of studies, review of inpatient medication list Patient reports that her breathing is slightly better. Her cough is more productive. Denies any fever or chills. She does have some intermittent chest pain in the back right side of her chest particularly with coughing. She does admit to feeling somewhat anxious during the night. Denies any nausea or vomiting. No constipation. Additional Comments: 6 system review negative. Please see pertinent positives in the history of present illness section. (Christy David PA-C) Objective Vital Signs Date Time Temp Pulse Resp B/P Pulse Ox O2 Delivery O2 Flow Rate FiO2 10/20/16 08:00 95 Nasal Cannula 2.0 10/20/16 07:54 35.6 85 20 122/55 95 Nasal Cannula 2.0 10/20/16 07:32 68 16 98 Nasal Cannula 2.0 10/20/16 02:10 90 22 97 Nasal Cannula 2.0 10/20/16 00:05 98 Nasal Cannula 2.0 10/19/16 22:57 36.5 87 20 102/63 97 Nasal Cannula 2.0 10/19/16 20:05 98 Nasal Cannula 2.0 10/19/16 16:00 Nasal Cannula 2.0 10/19/16 15:36 86 14 98 Nasal Cannula 2.0 10/19/16 15:01 36.4 93 24 118/83 96 10/19/16 13:10 88 14 96 Nasal Cannula 2.0 10/19/16 11:10 88 14 96 Nasal Cannula 2.0 (Christy David PA-C) Physical Exam General Appearance: + mild distress (mild respiratory distress) Eyes: EOMI Neck: no JVD Respiratory/Chest: + pertinent finding (few diffuse wheezes with decreased breath sounds at the bases right greater than left. Positive tachypnea. Saturating at 97% on 2 L of oxygen per nasal cannula) Cardiovascular: regular rate, rhythm Abdomen: normal bowel sounds, non tender, soft Extremities: + pertinent finding (trace pitting edema without any erythema, tenderness or warmth appreciated in lower extremity's bilaterally) Neurologic/Psychiatric: no motor/sensory deficits, oriented x 3 Skin: warm/dry (Christy David PA-C) Laboratory Results 10/20/16 06:20 Test 10/20/16 06:20 Anion Gap 10.0 mmol/L (3-11) Est Creatinine Clear Calc Drug Dose 46.1 ml/min Estimated GFR () 76.1 Estimated GFR (Non- 65.7 BUN/Creatinine Ratio 19.1 (10-20) Calcium Level 9.7 mg/dl (8.5-10.1) Last 24 Hours Test 10/20/16 06:20 Sodium Level 132 mmol/L Potassium Level 4.3 mmol/L Chloride Level 97 mmol/L Carbon Dioxide Level 25 mmol/L Anion Gap 10.0 mmol/L Blood Urea Nitrogen 17 mg/dl Creatinine 0.89 mg/dl Est Creatinine Clear Calc Drug Dose 46.1 ml/min Estimated GFR () 76.1 Estimated GFR (Non- 65.7 BUN/Creatinine Ratio 19.1 Random Glucose 134 mg/dl Calcium Level 9.7 mg/dl (Christy David PA-C) Assessment and Plan 71-year-old female with a history of reported emphysema/COPD and right pulmonary mass presented to the emergency department with dyspnea on exertion, nonproductive cough and hypoxia. She does not typically require oxygen at home. COPD exacerbation, acute respiratory failure with hypoxia -Continue Solu-Medrol at current dose. 30 mg IV q 8 hr -Continue scheduled DuoNeb's every 6 hours and every 2 hours PRN (albuterol was switched to Xopenex yesterday) -Continue Rocephin and Zithromax for now -Patient will likely need O2 at home -We will perform a 2 step closer to time of DC Pulmonary mass-CT reviewed with patient. We discussed her options. The patient does not want any further treatment for the mass. She understands in depth that the mass is growing in his affecting her daily living. She again chooses to not pursue any surgical intervention, chemotherapy or radiation Hyponatremia-improved -D/C IVF -Daily PRP Anxiety -Continue Ativan. It seems to be helping. Hyperlipidemia -Continue statin DVT prophylaxis -Lovenox 40 mg subQ daily -TEDS, SCDs CODE STATUS -LEVEL I FULL CODE DISPO -Discharge likely in 2-3 days -Likely DC home with oxygen (Urban, Christy P., PA-C) I agree with PA assessment and plan and have seen and examined pt Pt still sob and wheezing Cont steroids at this time Hemodynamically stable May need O2 on discharge Does not want workup for lung mass (Andrew Patel D.O.)
[2016-10-20 11:55] LABS: BASO % 0.1 %; BASO ABS # 0.01 K/uL (0-0.2); COMPLETE YES; HEMATOCRIT 30.5 % (37-47); IG% 0.6 %; LYMPH % 5.7 %; LYMPH ABS # 1.13 K/uL (1.2-3.4); MEAN CELL VOLUME 77.6 fL (80-100); MEAN CORPUSCULAR HEMOGLOBIN 26.5 pg (25-34); MEAN CORPUSCULAR HGB CONC 34.1 g/dl (32-36); MEAN PLATELET VOLUME 8.2 fL (7.4-10.4); MONO % 2.1 %; NEUT % 91.5 %; PLATELET COUNT 824 K/uL (130-400); RED BLOOD COUNT 3.93 M/uL (4.2-5.4); WHITE BLOOD COUNT 19.83 K/uL (4.8-10.8)
[2016-10-20] MEDS: LORAZEPAM 0.5 MG TAB PO PRN ×2 (12:04→18:08)
[2016-10-20] MEDS: GUAIFENESIN 600 MG TABCR PO SCH ×2 (13:38→21:04)
[2016-10-20] MEDS: CEFTRIAXONE SOD INJ 1,000 MG in DEXTROSE 5% 50ML 50 ML IV SCH (16:49)
[2016-10-20] MEDS: LORAZEPAM 0.5 MG TAB PO SCH (21:02)
[2016-10-20] MEDS: SIMVASTATIN 10 MG TAB PO SCH (21:04)
[2016-10-20] MEDS: AZITHROMYCIN IV 500 MG in DEXTROSE 5% 250ML 250 ML IV SCH (21:13)
[2016-10-21] VITALS (8 sets, daily range): BP systolic 126–128; BP diastolic 74–78; PULSE 86–94; TEMP 36.4; O2SAT 91–98
[2016-10-21] MEDS: METHYLPREDNISOLONE IV 30 MG in SYRINGE 0 ML IV SCH ×3 (01:00→17:32)
[2016-10-21] MEDS: IPRATROPIUM BROMIDE NEB SOLN 0.02% 2.5 ML VIAL INH SCH ×4 (07:45→19:21)
[2016-10-21] MEDS: LEVALBUTEROL 1.25MG/0.5ML NEB INH SCH ×4 (07:45→19:21)
[2016-10-21 07:58] LABS: BUN/CREATININE RATIO 20.8 (10-20); CALCIUM 9.1 mg/dl (8.5-10.1); CREATININE 0.75 mg/dl (0.60-1.20); POTASSIUM 4.2 mmol/L (3.5-5.1)
[2016-10-21] MEDS: ASPIRIN 81 MG ECTAB PO SCH (08:43)
[2016-10-21] MEDS: GUAIFENESIN 600 MG TABCR PO SCH ×2 (08:44→20:56)
[2016-10-21] MEDS: CHOLECALCIFEROL 1000 INTER.UNIT TAB PO SCH (08:45)
[2016-10-21] MEDS: ENOXAPARIN 40 MG/0.4 ML SYR SQ SCH (08:50)
[2016-10-21] MEDS: MOMETASONE FUROATE-FORMOTEROL (DULERA) 200mcg/5mcg per inh INH SCH ×2 (08:57→20:58)
[2016-10-21] MEDS: LORAZEPAM 0.5 MG TAB PO PRN ×2 (09:04→14:48)
[2016-10-21] MEDS ORDERED: NURSING VERBAL MED ORDER ONE (12:15)
[2016-10-21] MEDS: GUAIFENESIN/DEXTROM SYRUP 100MG/10MG 5ML UDC PO PRN ×2 (13:54→20:57)
[2016-10-21] MEDS: CEFTRIAXONE SOD INJ 1,000 MG in DEXTROSE 5% 50ML 50 ML IV SCH (17:18)
--- NOTE | 2016-10-21 19:52 | Hospitalist Progress Note ---
Hospitalist Progress Note Date of Service Oct 21, 2016. Subjective Pt evaluation today including: conversation w/ patient, conversation w/ family , physical exam, chart review, lab review, review of studies, review of inpatient medication list Patient is making improvements every day. She today is sitting in chair without using supplemental oxygen. Her pulse ox is maintaining, yet she is sedentary.; She requested Robitussin cough syrup to which I obliged. She declines having chest pain. She feels that she has been constipated. Additional Comments: A 10 system review was performed and all were negative. Positives were placed in the subjective section. Objective Vital Signs Date Time Temp Pulse Resp B/P Pulse Ox O2 Delivery O2 Flow Rate FiO2 10/21/16 19:21 93 16 94 Room Air 10/21/16 16:09 88 16 93 Room Air 10/21/16 15:15 36.4 86 16 128/78 94 Room Air 10/21/16 14:20 93 Room Air 10/21/16 12:08 90 16 96 Nasal Cannula 2.0 10/21/16 08:00 2.0 10/21/16 07:45 94 16 94 Nasal Cannula 2.0 10/21/16 07:45 91 Nasal Cannula 2.0 10/21/16 07:40 36.4 92 18 126/74 91 Nasal Cannula 2.0 10/21/16 00:05 98 Nasal Cannula 2.0 10/20/16 23:45 36.5 87 18 131/78 97 Nasal Cannula 2.0 10/20/16 20:05 98 Nasal Cannula 2.0 Physical Exam Notes: General Appearance: Not in acute distress. Eyes: EOMI Neck: no JVD Respiratory/Chest: few diffuse wheezes with decreased breath sounds at the bases right greater than left. Cardiovascular: regular rate, rhythm Abdomen: normal bowel sounds, non tender, soft Extremities: Trace pitting edema without any erythema, tenderness or warmth appreciated in lower extremity's bilaterally. Neurologic/Psychiatric: no motor/sensory deficits, oriented x 3, Patient's word choice in conversation is very colorful, she does not mince words. Skin: warm/dry Laboratory Results Last 24 Hours Test 10/21/16 06:56 Sodium Level 137 mmol/L Potassium Level 4.2 mmol/L Chloride Level 99 mmol/L Carbon Dioxide Level 28 mmol/L Anion Gap 10.0 mmol/L Blood Urea Nitrogen 16 mg/dl Creatinine 0.75 mg/dl Est Creatinine Clear Calc Drug Dose 54.8 ml/min Estimated GFR () 93.6 Estimated GFR (Non- 80.8 BUN/Creatinine Ratio 20.8 Random Glucose 127 mg/dl Calcium Level 9.1 mg/dl Assessment and Plan 1) COPD exacerbation, acute respiratory failure with hypoxia -Continue Solu-Medrol at current dose. 30 mg IV q 8 hr -Continue scheduled DuoNeb's every 6 hours and every 2 hours PRN -Continue Rocephin and Zithromax for now -Patient may not need oxygen now, she actually is not interested in having at home. -We will perform a 2 step closer to time of DC 2) Pulmonary mass-CT reviewed with patient. We discussed her options. The patient does not want any further treatment for the mass. She understands in depth that the mass is growing in his affecting her daily living. She again chooses to not pursue any surgical intervention, chemotherapy or radiation 3) Hyponatremia- resolved in normal range today. All her electrolytes are normal today. 4) Anxiety -Continue Ativan. It seems to be helping. 5)Hyperlipidemia -Continue statin DVT prophylaxis -Lovenox 40 mg subQ daily -TEDS, SCDs
[2016-10-21] MEDS: AZITHROMYCIN IV 500 MG in DEXTROSE 5% 250ML 250 ML IV SCH (20:08)
[2016-10-21] MEDS: LORAZEPAM 0.5 MG TAB PO SCH (20:56)
[2016-10-21] MEDS: SIMVASTATIN 10 MG TAB PO SCH (20:56)
[2016-10-22] VITALS (7 sets, daily range): BP systolic 125–150; BP diastolic 63–83; PULSE 87–102; TEMP 36.3–36.9; O2SAT 90–94
[2016-10-22] MEDS: METHYLPREDNISOLONE IV 30 MG in SYRINGE 0 ML IV SCH ×3 (01:14→17:02)
[2016-10-22] MEDS: ACETAMINOPHEN 325 MG TAB PO PRN ×3 (06:28→18:18)
[2016-10-22] MEDS: LEVALBUTEROL 1.25MG/0.5ML NEB INH SCH ×4 (07:23→19:48)
[2016-10-22] MEDS: IPRATROPIUM BROMIDE NEB SOLN 0.02% 2.5 ML VIAL INH SCH ×4 (07:23→19:48)
[2016-10-22] MEDS: GUAIFENESIN 600 MG TABCR PO SCH ×2 (09:08→20:35)
[2016-10-22] MEDS: ASPIRIN 81 MG ECTAB PO SCH (09:08)
[2016-10-22] MEDS: CHOLECALCIFEROL 1000 INTER.UNIT TAB PO SCH (09:09)
[2016-10-22] MEDS: ENOXAPARIN 40 MG/0.4 ML SYR SQ SCH (09:10)
[2016-10-22] MEDS: MOMETASONE FUROATE-FORMOTEROL (DULERA) 200mcg/5mcg per inh INH SCH ×2 (09:11→20:33)
[2016-10-22] MEDS: CEFTRIAXONE SOD INJ 1,000 MG in DEXTROSE 5% 50ML 50 ML IV SCH (17:02)
--- NOTE | 2016-10-22 18:42 | Hospitalist Progress Note ---
Hospitalist Progress Note Date of Service Oct 22, 2016. Subjective Pt evaluation today including: conversation w/ patient, physical exam, chart review, lab review, review of studies, review of inpatient medication list Doing better has not needed oxygen, she does get SOB withe exertion. Additional Comments: A 10 system review was performed and all were negative. Positives were placed in the subjective section. Objective Vital Signs Date Time Temp Pulse Resp B/P Pulse Ox O2 Delivery O2 Flow Rate FiO2 10/22/16 15:30 94 16 94 Room Air 10/22/16 15:25 36.4 92 20 150/83 10/22/16 12:44 94 Room Air 10/22/16 11:21 93 16 94 Room Air 10/22/16 07:59 36.3 94 20 128/63 90 Room Air 10/22/16 00:20 Nasal Cannula 2.0 10/21/16 20:20 Nasal Cannula 2.0 10/21/16 19:21 93 16 94 Room Air Physical Exam Notes: eneral Appearance: Not in acute distress. Eyes: EOMI Neck: no JVD Respiratory/Chest: few diffuse wheezes with decreased breath sounds at the bases right greater than left. Cardiovascular: regular rate, rhythm Abdomen: normal bowel sounds, non tender, soft Extremities: Trace pitting edema without any erythema, tenderness or warmth appreciated in lower extremity's bilaterally. Neurologic/Psychiatric: no motor/sensory deficits, oriented x 3 Skin: warm/dry Assessment and Plan 1) COPD exacerbation, acute respiratory failure with hypoxia -Continue Solu-Medrol at current dose. 30 mg IV q 8 hr -Continue scheduled DuoNeb's every 6 hours and every 2 hours PRN -Continue Rocephin and Zithromax for now -Patient may not need oxygen now, she actually is not interested in having at home. -order 2 step. 2) Pulmonary mass-CT reviewed with patient. We discussed her options. The patient does not want any further treatment for the mass. She understands in depth that the mass is growing in his affecting her daily living. She again chooses to not pursue any surgical intervention, chemotherapy or radiation 3) Hyponatremia- resolved in normal range today. All her electrolytes are normal today. 4) Anxiety -Continue Ativan. It seems to be helping. 5)Hyperlipidemia -Continue statin DVT prophylaxis -Lovenox 40 mg subQ daily -TEDS, SCDs Anticipate D/C in 1-2 days.
[2016-10-22] MEDS: AZITHROMYCIN IV 500 MG in DEXTROSE 5% 250ML 250 ML IV SCH (20:29)
[2016-10-22] MEDS: LORAZEPAM 0.5 MG TAB PO SCH (20:32)
[2016-10-22] MEDS: SIMVASTATIN 10 MG TAB PO SCH (20:34)
[2016-10-23] MEDS: METHYLPREDNISOLONE IV 30 MG in SYRINGE 0 ML IV SCH ×2 (00:40→07:37)
[2016-10-23] MEDS: GUAIFENESIN/DEXTROM SYRUP 100MG/10MG 5ML UDC PO PRN ×3 (01:24→18:08)
[2016-10-23] MEDS: ACETAMINOPHEN 325 MG TAB PO PRN (04:34)
[2016-10-23] MEDS: LORAZEPAM 0.5 MG TAB PO PRN ×2 (05:48→16:42)
[2016-10-23] MEDS: ASPIRIN 81 MG ECTAB PO SCH (07:22)
[2016-10-23] MEDS: ENOXAPARIN 40 MG/0.4 ML SYR SQ SCH (07:22)
[2016-10-23] MEDS: MOMETASONE FUROATE-FORMOTEROL (DULERA) 200mcg/5mcg per inh INH SCH ×2 (07:23→21:24)
[2016-10-23] MEDS: CHOLECALCIFEROL 1000 INTER.UNIT TAB PO SCH (07:23)
[2016-10-23] MEDS: GUAIFENESIN 600 MG TABCR PO SCH ×2 (07:23→21:23)
[2016-10-23 07:36] VITALS: BP 132/77; PULSE 80; TEMP 36.5; O2SAT 95
[2016-10-23] MEDS: LEVALBUTEROL 1.25MG/0.5ML NEB INH SCH ×4 (07:48→19:54)
[2016-10-23] MEDS: IPRATROPIUM BROMIDE NEB SOLN 0.02% 2.5 ML VIAL INH SCH ×4 (07:48→19:54)
[2016-10-23 08:03] VITALS: PULSE 82; O2SAT 94
--- NOTE | 2016-10-23 10:27 | Hospitalist Progress Note ---
Hospitalist Progress Note Date of Service Oct 23, 2016. Subjective Pt evaluation today including: conversation w/ patient, physical exam, chart review, lab review, review of studies, review of inpatient medication list Patient reports she did not rest well last night. She feels she needs one more day in the hospital. I told her that I do feel it is time to switch to oral dosing. This was we can assess if she will continue doing well without IV therapies. Her cough is becoming loose. Once again she declines any further evaluation, treatment, or biopsy concerning the lung mass. In fact she does want to talk about it. Additional Comments: A 10 system review was performed and all were negative. Positives were placed in the subjective section. Objective Vital Signs Date Time Temp Pulse Resp B/P Pulse Ox O2 Delivery O2 Flow Rate FiO2 10/23/16 08:15 Room Air 10/23/16 08:03 82 18 94 Room Air 10/23/16 07:36 36.5 80 20 132/77 95 10/23/16 00:45 Room Air 10/22/16 23:52 36.9 87 20 125/72 93 2.0 10/22/16 19:53 102 20 91 Room Air 10/22/16 16:00 Room Air 10/22/16 15:30 94 16 94 Room Air 10/22/16 15:25 36.4 92 20 150/83 10/22/16 12:44 94 Room Air 10/22/16 11:21 93 16 94 Room Air Physical Exam Notes: Notes: eneral Appearance: Not in acute distress. Eyes: EOMI Neck: no JVD Respiratory/Chest: few diffuse wheezes with decreased breath sounds at the bases right greater than left. Few rhonchi noted today b/l these cleared with cough. Cardiovascular: regular rate, rhythm Abdomen: normal bowel sounds, non tender, soft Extremities: Trace pitting edema without any erythema, tenderness or warmth appreciated in lower extremity's bilaterally. Neurologic/Psychiatric: no motor/sensory deficits, oriented x 3 Skin: warm/dry Assessment and Plan 1) COPD exacerbation, acute respiratory failure with hypoxia -change to oral prednisone. -Continue scheduled DuoNeb's every 6 hours and every 2 hours PRN -No further Zithromax needed (had 5 doses) change Rocephin to Ceftin 250mg po BID. -Patient not needing Oxygen, but stays at rest. I will be interested in seeing how she does with exertion. -order 2 step. 2) Pulmonary mass-CT reviewed with patient. I brought this up today just to make sure. and patient does not want any further treatment or work-up for the lung mass. I told her straight up that I believe this is cancer and that it will continue to grow and cause her to have discomfort, worsening breathing problems, and eventually . She said "we all of something". She really does not want to talk about this anymore which I understand. 3) Hyponatremia- resolved in normal range today. All her electrolytes are normal today. 4) Anxiety -Continue Ativan. It seems to be helping. 5)Hyperlipidemia -Continue statin DVT prophylaxis -Lovenox 40 mg subQ daily -MASSIMO SCDs D/C planned for tomorrow. Discharge planning: home
[2016-10-23 11:43] VITALS: PULSE 90; O2SAT 90
[2016-10-23 14:47] VITALS: BP 130/77; PULSE 95; TEMP 36.6; O2SAT 92
[2016-10-23 16:09] VITALS: PULSE 96; O2SAT 91
[2016-10-23] MEDS: CEFUROXIME AXETIL 250 MG TAB PO SCH (17:47)
[2016-10-23 19:54] VITALS: PULSE 104; O2SAT 92
[2016-10-23] MEDS: LORAZEPAM 0.5 MG TAB PO SCH (21:22)
[2016-10-23] MEDS: SIMVASTATIN 10 MG TAB PO SCH (21:23)
[2016-10-24 00:04] VITALS: BP 134/74; PULSE 87; TEMP 36.7; O2SAT 90
[2016-10-24 05:56] LABS: HEMATOCRIT 30.8 % (37-47); MEAN CELL VOLUME 78.4 fL (80-100); MEAN CORPUSCULAR HEMOGLOBIN 25.7 pg (25-34); MEAN CORPUSCULAR HGB CONC 32.8 g/dl (32-36); MEAN PLATELET VOLUME 7.8 fL (7.4-10.4); PLATELET COUNT 730 K/uL (130-400); RED BLOOD COUNT 3.93 M/uL (4.2-5.4)
[2016-10-24 06:21] LABS: BASO % 0.1 %; BASO ABS # 0.03 K/uL (0-0.2); BUN/CREATININE RATIO 30.2 (10-20); CALCIUM 8.7 mg/dl (8.5-10.1); COMPLETE YES; CREATININE 0.72 mg/dl (0.60-1.20); EOS % 0.3 %; IG% 3.4 %; LYMPH % 19.5 %; LYMPH ABS # 5.03 K/uL (1.2-3.4); MONO % 9.1 %; NEUT % 67.6 %; POTASSIUM 4.2 mmol/L (3.5-5.1)
[2016-10-24 07:43] VITALS: BP 125/78; PULSE 77; TEMP 36.1; O2SAT 93
[2016-10-24] MEDS: IPRATROPIUM BROMIDE NEB SOLN 0.02% 2.5 ML VIAL INH SCH ×2 (07:49→11:50)
[2016-10-24] MEDS: LEVALBUTEROL 1.25MG/0.5ML NEB INH SCH ×2 (07:49→11:50)
[2016-10-24] MEDS: CHOLECALCIFEROL 1000 INTER.UNIT TAB PO SCH (07:57)
[2016-10-24] MEDS: GUAIFENESIN 600 MG TABCR PO SCH (07:57)
[2016-10-24] MEDS: MOMETASONE FUROATE-FORMOTEROL (DULERA) 200mcg/5mcg per inh INH SCH (07:57)
[2016-10-24] MEDS: CEFUROXIME AXETIL 250 MG TAB PO SCH (07:57)
[2016-10-24] MEDS: ASPIRIN 81 MG ECTAB PO SCH (07:57)
[2016-10-24] MEDS: ENOXAPARIN 40 MG/0.4 ML SYR SQ SCH (07:58)
[2016-10-24] MEDS: LORAZEPAM 0.5 MG TAB PO PRN (08:01)
[2016-10-24 08:03] VITALS: PULSE 79; O2SAT 93
[2016-10-24 11:50] VITALS: PULSE 95; O2SAT 91
[2016-10-24] MEDS ORDERED: CEFU250T15 PO (12:54)
[2016-10-24] MEDS ORDERED: PRD50 PO (12:54)
[2016-10-24] MEDS ORDERED: ATV5 PO (12:54)
--- NOTE | 2016-10-24 12:56 | Discharge Instructions ---
Discharge Instructions Admission Admission Date: Oct 18, 2016 at 17:03 Admission Diagnosis: Acute Bronchitis, Copd Exacerbation. Discharge Care Plan - Problem: Medical Problems: (1) Acute bronchitis (2) COPD exacerbation Care Plan - Goal(s): Decrease discomfort, Improve function Care Plan - Instructions: Activity Recommendations: no limitations Recommended Home Diet: Regular Provider Instructions: Please follow up with your PCP Please continue to take the prednisone for 5 days then continue at maintenance dose as you were taking prior to hospital stay VTE Core Measure Inpt VTE Proph given/why not?: Enoxaparin (Lovenox)[facility] Recommendations: Call your doctor if: * Temperature above 101 degrees * Pain not relieved by pain medicine ordered * There is increased drainage or redness from any incision * You have any unanswered questions or concerns. Your Doctors Instructions noted above were prepared by provider Vandana Liriano.
[2016-10-24 13:10] VITALS: BP 125/78; PULSE 95; TEMP 36.1; O2SAT 91
--- NOTE | 2016-10-24 14:51 | Discharge Summary ---
Discharge Summary Admission Date: Oct 18, 2016 at 17:03 Discharge Date: Oct 24, 2016 Discharge Disposition: Home Principal Diagnosis: COPD Exacurbation/Bronchitis Medication Reconciliation New Medications: Cefuroxime Axetil (Ceftin) 250 Mg Tab 250 MG PO BID for 3 Days, #6 TAB Prednisone (Prednisone) 50 Mg Tab 50 MG PO DAILY for 4 Days, #4 Lorazepam (Lorazepam) 0.5 Mg Tab 0.5 MG PO QD PRN for ANXIETY for 30 Days, #20 TAB Continued Medications: Aspirin (Aspirin Ec) 81 Mg Tab 81 MG PO DAILY Cholecalciferol (Vitamin D) 1,000 Unit Tab 1000 UNIT PO DAILY Ipratropium-Albuterol (Duoneb) 3 Ml Nebu 1 TREATMENT INH QID, INHA Lorazepam (Ativan) 0.5 Mg Tab 0.5 MG PO HS, TAB Mometasone Furoate-Formoterol (Dulera 200/5 Mcg) 1 Aer Aer 2 PUFFS INH BID, AER Multiple Vitamins W/ Minerals (Multivitamin Adults 50+) 1 Tab Tab 1 TAB PO DAILY Simvastatin (Zocor) 10 Mg Tab 10 MG PO QPM, TAB Discontinued Medications: Prednisone (Prednisone) 10 Mg Tab 40 MG PO DAILY, TAB Discharge Exam Review of Systems: Constitutional: No chills Eyes: No worsening of vision ENT: No unusual epistaxis Respiratory: No cough, No dyspnea on exertion, No shortness of breath Cardiovascular: No edema, No orthopnea Abdomen: No nausea, No pain Musculoskeletal: No joint pain Genitourinary - Female: No dysuria Genitourinary - Male: No hematuria Neurologic: No memory loss Psychiatric: No depression symptoms Endocrine: No fatigue Integumentary: No new/changing skin lesions, No rash Physical Exam: General Appearance: WD/WN, no apparent distress Eyes: normal inspection ENT: normal ENT inspection Neck: supple Respiratory/Chest: chest non-tender, lungs clear, + pertinent finding ( diminished) Cardiovascular: regular rate, rhythm, no edema Abdomen / GI: normal bowel sounds, non tender, soft Extremities: normal inspection, no calf tenderness 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 Pedroza, she started to feel more short of breath with a harsh cough on Sunday (5 days ago) . She was compliant with her home inhalers and tried to utilize her nebulizers more frequently but her breathing and the cough got worse. No fever or chills. The cough is intermittently productive, her sputum is thicker than normal. Two days ago she was prescribed Prednisone 40mg daily by Dr. Pedroza but her breathing deteriorated to the point that she called EMS today. In the ED she was slightly hypoxic with saturations in the high 80's on room air. The CXR did not show any signs of pneumonia, it did show a right sided mass that has been there since 2010. The patient was given Solumedrol, nebulizers and she started to feel better. On admission CT patient was found to have known necrotic pulmonary mass and a new renal lesion. Discussed the right sided mass, she says that Dr. Pedroza performed a bronchoscopy with biopsies and no evidence of malignant cells. He has been watching the mass and she is actually due for a repeat CT scan of the chest. The CXR in the ED showed that the mass was slightly larger compared to 2016 study. Patient was told about the renal mass and the high suspicion of cancer. Patient states she did not want workup. She understood that mass was of high suspicion for cancer however patient stated she understood but was adamant she did not want workup. She was instructed to f/u with Dr. Pedroza for further imaging. Patient was admitted for COPD exacerbation. She was started on nebulizers and givn IV steroids. On admission CT patient also had pneumonitis. Patient was started on IV cefipime and at time of discharge switched to ceftin. Patient symptoms greatly improved over her 4 days stay and on 10.24.16 patient was back to baseline respiratory status. She was discharged home and instructed to f/u with Dr. Pedroza and her PCP. Total Time Spent: Greater than 30 minutes This includes examination of the patient, discharge planning, medication reconciliation, and communication with other providers. Discharge Instructions Please refer to the electronic Patient Visit Report (Discharge Instructions) for additional information. Additional Copies To Sanjay Pedroza D.O. Pulmonary
[2017-03-12] MEDS ORDERED: SYMIN8045 INH (12:43)
[2017-03-12] MEDS ORDERED: OXYC-57 PO (12:46)
[2017-03-12] MEDS ORDERED: OXYC-106 PO (12:46)
[2017-03-12] MEDS ORDERED: ATV/1 PO (12:46)
[2017-03-12] MEDS ORDERED: LEVA45AE INH (12:49)
[2017-03-15] MEDS ORDERED: FENT1DIS85 TOP (12:57)
[2017-03-15] MEDS ORDERED: ONDA8TAB62 SL (12:57)
[2017-03-19] MEDS ORDERED: FENT1DIS85 TOP (13:08)
[2017-03-26] MEDS ORDERED: ONDA4TAB46 PO (12:35)
[2017-03-26] MEDS ORDERED: DRGTP12 (12:37)
[2017-03-26] MEDS ORDERED: FNTTP25 (12:37)
[2017-03-30] MEDS ORDERED: SILV1CRE73 TOP (11:09)
[2017-03-30] MEDS ORDERED: MAGIC1 PO (11:09)
[2017-04-25] MEDS ORDERED: SENN-61 PO (14:44)
[2017-04-25] MEDS ORDERED: Selenium PO (14:44)
[2017-06-15] MEDS ORDERED: MRPSR30 PO (11:27)
== END 2016-10-24 13:30 | disposition home or self-care (01) | DRG 189 ==
LOC: ENRESERVDT → ENRESERVTM → EDBD 15:10 → C.EDA 15:11 → C.MS2W 17:03
PROVIDERS: ADMIT Internal Medicine; ATTEND Internal Medicine
DX: J96.01 Acute respiratory failure with hypoxia (principal); J44.1 Chronic obstructive pulmonary disease with (acute) exacerbation; J44.0 Chronic obstructive pulmonary disease with (acute) lower respiratory infection; C34.90 Malignant neoplasm of unspecified part of unspecified bronchus or lung; E22.2 Syndrome of inappropriate secretion of antidiuretic hormone; J20.9 Acute bronchitis, unspecified; R91.8 Other nonspecific abnormal finding of lung field; E86.0 Dehydration; E78.5 Hyperlipidemia, unspecified; F17.210 Nicotine dependence, cigarettes, uncomplicated; N28.89 Other specified disorders of kidney and ureter; F41.9 Anxiety disorder, unspecified; Z79.82 Long term (current) use of aspirin; Z79.51 Long term (current) use of inhaled steroids; Z79.52 Long term (current) use of systemic steroids; Z79.899 Other long term (current) drug therapy

== ENCOUNTER → 2017-02-05 | Outpatient (CLI) | payer OTHER ==
[~2017-02-05] MED LIST changes: -ASPI325T45 PO; +ASPI81TA28 PO; +ATV/1 PO; +ATV5 PO; -CALC-214; +CLON0.5T3 PO; +DRGTP12; +DRGTP25 TD; +FENT1DIS85 TOP; +FNTTP25; -IPRA1AER2 INH; +IPRASOL4 INH; +LEVA45AE INH; +MAGIC1 PO; +MELO7.5T6 PO; +MRPSR30 PO; -MULT-506 PO; +MULT-916 PO; +Nicotine TD; +ONDA4TAB46 PO; +ONDA8TAB62 SL; +OXYC-106 PO; +OXYC-57 PO; +OXYC-59 PO; +OXYC1TAB3 PO; +POLY335019 PO; +PRD10 PO; +PRD50 PO; +SENN-61 PO; +SILV1CRE73 TOP; +SYMIN8045 INH; +Selenium PO
--- NOTE | 2017-02-05 11:31 | DIAGNOSTIC IMAGING REPORT ---
PET/CT HISTORY: Lung carcinoma C34.90 TECHNIQUE: PET/CT was performed from the base of the skull through the pelvis following the intravenous administration of 15.4 mCi of F18-FDG. Non-contrast CT imaging was performed over the same range without breath-hold for attenuation correction of PET images and anatomic correlation, but not for primary interpretation as it is not of standard diagnostic quality. CT DOSE: 193.43 mGycm COMPARISON: CT chest same date FINDINGS: HEAD AND NECK: There is no FDG-avid disease or significant lymphadenopathy in the imaged portions of the head and the neck. CHEST: Large partially necrotic mass right lung base with extension to the right hilar and mediastinal regions. This shows intense metabolic activity primarily in a peripheral distribution. Hilar mediastinal extension shows intense SUV characteristics as well with SUVs extending to approximately 11. There is a metabolically active nodule within the left lower lobe measuring 2.0 x 1.2 cm and having SUV characteristics of approximately 1.2. Additional 7 mm nodular density superior segment left lower lobe shows a slight increase in SUV characteristics to approximately 0.9. Metastatic nodules are considered most likely. ABDOMEN/PELVIS: Soft tissue mass superior pole left kidney previously described as not show increase in signal. This may represent anatomic variation. Prominence of the left renal pelvis possibly indicating a UPJ defect. Soft tissue mass within the pancreatic tail measuring 2.1 cm. This has considerable increase in SUV characteristics to 5.6 MUSCULOSKELETAL: There is no FDG-avid or destructive bone lesion. IMPRESSION: 1. Large right hemithoracic necrotic mass showing hilar and mediastinal extension. 2. This shows a considerable increase in metabolic activity characteristics and is consistent with neoplasm. 3. Left hemithoracic nodules shown a moderate increase in metabolic activity consistent with metastatic deposits. 4. Soft tissue mass in the pancreatic tail showing intense post contrast activity. This may be a primary or secondary neoplastic process. Electronically signed by: Mathew Santos M.D. 02/05/2017 11:30 AM Dictated Date/Time: 02/05/2017 11:15 AM
== END | disposition home or self-care (01) ==
LOC: C.PET 08:09
PROVIDERS: ATTEND Internal Medicine Hematology & Oncology
DX: C34.90 Malignant neoplasm of unspecified part of unspecified bronchus or lung (principal); K86.89 Other specified diseases of pancreas

== ENCOUNTER → 2017-02-05 | Outpatient (CLI) | payer OTHER ==
--- NOTE | 2017-02-05 08:24 | DIAGNOSTIC IMAGING REPORT ---
CT CHEST SUPERDIMENSIONAL WITHOUT CT DOSE: 174.44 mGy.cm CLINICAL HISTORY: C78.00 Metastatic lung [id number] TECHNIQUE: Helical images were acquired in the transverse plane. COMPARISON STUDY: 10/19/2016 FINDINGS: The thyroid gland is unremarkable in appearance. There is no significant pericardial effusion. There is a small right pleural effusion. This is developed since the prior study. There is a large right lower lobe mass measuring excess of 11 cm. This is contiguous with the mediastinum. There is progressive narrowing of the bronchus intermedius which has a residual lumen of 11 mm. There is stable left adrenal nodular thickening. There is a stable 2 cm spiculated left lower lobe pulmonary nodule. There is a second 10 mm spiculated left lower lobe pulmonary nodule. There is a stable 4 mm nodule within the lingula. There is moderate to severe underlying emphysema. There is a T9 compression fracture. This is likely pathologic as there is erosion of the lateral cortex of the T9 vertebral body. There is a destructive T8 posterior rib lesion. There is no evidence of pathologic axillary lymphadenopathy. There is no evidence of left hilar adenopathy. The right lower lobe mass is contiguous with the right hilum and mediastinum as described above. IMPRESSION: 1. Right lower lobe pulmonary mass measuring in excess of 11 cm with extension to the mediastinum, and progressive narrowing of the right bronchus intermedius 2. Stable 2 cm spiculated left lower lobe pulmonary nodule. Interval development of a 1 cm irregularly marginated second left lower lobe pulmonary nodule. Stable 4 mm pulmonary nodule within the lingula 3. T9 compression fracture with erosion of the lateral cortex of the T9 vertebral body. Direct neoplastic extension into the vertebral body is felt likely 4. Moderate to severe emphysema 5. Interval development of a right pleural effusion 6. Destructive posterior T8 rib lesion , viewed as highly suspicious for metastatic disease Electronically signed by: Bernard Cano M.D. 02/05/2017 8:23 AM Dictated Date/Time: 02/05/2017 8:10 AM
== END | disposition home or self-care (01) ==
LOC: C.CTS 07:49
PROVIDERS: ATTEND Surgery
DX: C78.00 Secondary malignant neoplasm of unspecified lung (principal); R91.8 Other nonspecific abnormal finding of lung field; S22.070A Wedge compression fracture of T9-T10 vertebra, initial encounter for closed fracture; X58.XXXA Exposure to other specified factors, initial encounter; J43.9 Emphysema, unspecified; M99.88 Other biomechanical lesions of rib cage; C34.90 Malignant neoplasm of unspecified part of unspecified bronchus or lung; K86.89 Other specified diseases of pancreas

== ENCOUNTER 2017-02-11 20:40 | Inpatient (IN) | payer OTHER ==
[~2017-02-11] VITALS: Ht 152.4 cm; Wt 48.3 kg
[~2017-02-11 20:40] MED LIST changes: -ATV/1 PO; -CLON0.5T3 PO; -DRGTP12; -DRGTP25 TD; -FENT1DIS85 TOP; -FNTTP25; -LEVA45AE INH; -MAGIC1 PO; -MELO7.5T6 PO; -MRPSR30 PO; -Nicotine TD; -ONDA4TAB46 PO; -ONDA8TAB62 SL; -OXYC-106 PO; -OXYC-57 PO; -OXYC-59 PO; -OXYC1TAB3 PO; -POLY335019 PO; -PRD10 PO; -SENN-61 PO; -SILV1CRE73 TOP; -SYMIN8045 INH; -Selenium PO
[2017-02-11] MEDS ORDERED: METHYLPREDNISOLONE 125 MG VIAL IV STA (21:22)
--- NOTE | 2017-02-11 21:22 | EMERGENCY ROOM VISIT NOTE ---
History Report prepared by Lillian: Magda Flores Under the Supervision of: Dr. Zacarias Morales M.D. First contact with patient: 21:15 Chief Complaint: RESPIRATORY PROBLEMS Stated Complaint: SOB Nursing Triage Summary: increase sob over last few days hx copd lung ca History of Present Illness The patient is a 71 year old female who presents to the Emergency Room with complaints of worsening shortness of breath for the past few days. She was brought to the ED via EMS. She has a history of COPD and lung cancer. The patient admits she started smoking again back in September 2016, and since then, her breathing issues have worsened. She uses both Oxygen and inhalers at home, but states they only provide minimal relief. She denies any recent steroid or antibiotic use. She denies any recent fevers. The patient admits to some upper abdominal pain, but states this is chronic for her. Her family reports her legs have been increasingly swollen recently. The patient denies any personal history of PE's or DVT's. 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 A total of 10 systems reviewed and were otherwise negative. Past Medical & Surgical Medical Problems: (1) COPD (chronic obstructive pulmonary disease) (2) Dyspnea (3) Emphysema (subcutaneous) (surgical) resulting from a procedure (4) Mass of lung Family History Patient reports no known family medical history. Social History Smoking Status: Current Every Day Smoker Marital Status: Occupation Status: employed Current/Historical Medications Scheduled Aspirin (Aspirin Ec), 81 MG PO DAILY Cholecalciferol (Vitamin D), 1,000 UNIT PO DAILY Ipratropium-Albuterol (Duoneb), 1 TREATMENT INH QID Meloxicam (Mobic), 1 TAB PO BID Mometasone Furoate-Formoterol (Dulera 200/5 Mcg), 2 PUFFS INH BID Multiple Vitamins W/ Minerals (Multivitamin Adults 50+), 1 TAB PO DAILY Oxycodone/Acetaminophen 10MG/325MG (Percocet 10MG/325MG), 1 TAB PO QID Simvastatin (Zocor), 10 MG PO QPM Scheduled PRN Lorazepam (Lorazepam), 0.5 MG PO QD PRN for ANXIETY Allergies Uncoded Allergies: anesthesia gas (Allergy, Unknown, sick, 03/17/16) Physical Exam Vital Signs Date Time Temp Pulse Resp B/P Pulse Ox O2 Delivery O2 Flow Rate FiO2 02/12/17 00:28 109 02/12/17 00:27 107 02/11/17 22:56 101 18 184/96 100 Nasal Cannula 2.0 02/11/17 22:27 87 18 100 Nasal Cannula 2.0 02/11/17 21:21 97 02/11/17 21:11 94 Nasal Cannula 2.5 02/11/17 20:52 36.9 102 24 160/87 95 Room Air 02/11/17 20:47 95 Room Air Physical Exam GENERAL: Patient is unwell appearing and in moderate distress. HEENT: No acute trauma, normocephalic atraumatic, mucous membranes moist, no nasal congestion, no scleral icterus. NECK: Positive JVD. No stridor, no adenopathy, no meningismus, trachea is midline. LUNGS: She has minimal air movement in all lung muñiz. Expiratory wheezing. No dyspnea. No rhonchi. HEART: Regular rate and rhythm. No murmurs, rubs, gallops appreciated. ABDOMEN: Soft, nontender, bowel sounds positive, no masses appreciated, no peritonitis. BACK: No midline tenderness, no CVA tenderness EXTREMITIES: Pitting edema to the bilateral feet. Normal motion all extremities , no cyanosis. NEUROLOGIC: Alert and oriented, no acute motor or sensory deficits, no focal weakness, cranial nerves grossly intact. SKIN: No rash, no jaundice, no diaphoresis. Medical Decision & Procedures ER Provider Diagnostic Interpretation: This X-Ray was reviewed and interpreted by myself and the radiologist. CHEST ONE VIEW PORTABLE IMPRESSION: No significant change compared to prior studies. Large right lung mass and small right pleural effusion persist. Electronically signed by: Silas Gross M.D. 02/11/2017 9:43 PM Laboratory Results 02/11/17 20:48 Red Blood Count 3.94, Mean Corpuscular Volume 76.6, Mean Corpuscular Hemoglobin 25.1, Mean Corpuscular Hemoglobin Concent 32.8, Mean Platelet Volume 8.0, Neutrophils (%) (Auto) 80.9, Lymphocytes (%) (Auto) 9.9, Monocytes (%) (Auto) 7.9, Eosinophils (%) (Auto) 0.6, Basophils (%) (Auto) 0.2, Neutrophils # (Auto) 18.75, Lymphocytes # (Auto) 2.30, Monocytes # (Auto) 1.83, Eosinophils # (Auto) 0.13, Basophils # (Auto) 0.04 02/11/17 20:48 02/11/17 23:00 Test 02/11/17 20:48 02/11/17 23:00 White Blood Count 23.17 K/uL (4.8-10.8) Red Blood Count 3.94 M/uL (4.2-5.4) Hemoglobin 9.9 g/dL (12.0-16.0) Hematocrit 30.2 % (37-47) Mean Corpuscular Volume 76.6 fL (80-100) Mean Corpuscular Hemoglobin 25.1 pg (25-34) Mean Corpuscular Hemoglobin Concent 32.8 g/dl (32-36) Platelet Count 882 K/uL (130-400) Mean Platelet Volume 8.0 fL (7.4-10.4) Neutrophils (%) (Auto) 80.9 % Lymphocytes (%) (Auto) 9.9 % Monocytes (%) (Auto) 7.9 % Eosinophils (%) (Auto) 0.6 % Basophils (%) (Auto) 0.2 % Neutrophils # (Auto) 18.75 K/uL (1.4-6.5) Lymphocytes # (Auto) 2.30 K/uL (1.2-3.4) Monocytes # (Auto) 1.83 K/uL (0.11-0.59) Eosinophils # (Auto) 0.13 K/uL (0-0.5) Basophils # (Auto) 0.04 K/uL (0-0.2) RDW Standard Deviation 48.8 fL (36.4-46.3) RDW Coefficient of Variation 17.3 % (11.5-14.5) Immature Granulocyte % (Auto) 0.5 % Immature Granulocyte # (Auto) 0.12 K/uL (0.00-0.02) Anion Gap 8.0 mmol/L (3-11) Est Creatinine Clear Calc Drug Dose 42.2 ml/min Estimated GFR () 76.1 Estimated GFR (Non- 65.7 BUN/Creatinine Ratio 18.1 (10-20) Calcium Level 10.7 mg/dl (8.5-10.1) Creatine Kinase MB 2.1 ng/ml (0.5-3.6) Creatine Kinase MB Ratio (0-3.0) Troponin I < 0.015 ng/ml (0-0.045) Pro-B-Type Natriuretic Peptide 1513 pg/ml (0-900) Chemistry Specimen Hemolysis Arterial Blood pH 7.47 (7.35-7.45) Arterial Blood Partial Pressure CO2 36 mmHg (35-46) Arterial Blood Partial Pressure O2 87 mm/Hg (80-95) Arterial Blood HCO3 26 mmol/L (19-24) Arterial Blood Oxygen Saturation 94.6 % (90-95) Arterial Blood Base Excess 1.9 mEq/L (-9-1.8) Arterial Blood Gas Delivery 2 L [place] Test POS (POS) Magnesium Level 2.3 mg/dl (1.8-2.4) Total Bilirubin 0.4 mg/dl (0.2-1) Direct Bilirubin 0.1 mg/dl (0-0.2) Aspartate Amino Transf (AST/SGOT) 18 U/L (15-37) Alanine Aminotransferase (ALT/SGPT) 19 U/L (12-78) Alkaline Phosphatase 134 U/L (45-117) Total Creatine Kinase 31 U/L (26-192) Total Protein 7.9 gm/dl (6.4-8.2) Albumin 2.3 gm/dl (3.4-5.0) Laboratory results as reviewed by me. Medications Administered Medications (Trade) Dose Ordered Sig/Channing Route Start Time Stop Time Status Last Admin Dose Admin Methylprednisolone Sodium Succinate (Solu-Medrol IV) 125 mg NOW STAT IV 02/11/17 21:22 02/11/17 21:23 DC 02/11/17 21:37 125 MG Albuterol/ Ipratropium (Duoneb) 12 ml ONE ONCE INH 02/11/17 21:30 02/11/17 21:31 DC 02/11/17 21:55 12 ML ECG Indication: SOB/dyspnea Rate (beats per minute): 98 Rhythm: normal sinus Findings: no acute ischemic change, no ectopy ED Course 2115: The patient was evaluated in room C1. A complete history and physical exam was performed. 2121: Solu-Medrol 125 mg IV. 2129: DuoNeb 12 ml INH. 8: I discussed the patients case with Dr. Godinez [facility] Hospitalist. The patient will be further evaluated. Medical Decision Differential: Infectious, Reactive Airway Disease, Pneumonia, Pneumothorax, COPD , CHF, ACS, Pulmonary Embolism, MSK, GI, Dissection, amongst other etiologies entertained. 71 yr old female arrives for evaluation fo [facility]. Not moving very much air at all on arrival thus given hour neb and steroids. Pt history of large right lung mass (chart notes NSCLC?) and recent CT Chest with new right pleural effusion. Suspect there is some IVC compression as there is swelling in legs. With having just had CT Chest, and fact feel cause more likely COPD related than PE will hold on CT PE study with stable vitals. Lungs far too tight for her to be discharged. No evidence of dissection. She is not septic by examination. WBC is 23 which is her baseline, as are the elevated platelets at baseline. Will need to come in for copd exacerbation in addition to work up for pleural effusion (likely mass related) which may require drain. Consults Time Called: 2321 Consulting Physician: Dr. Godinez, [facility] Hospitalist Returned Call: [phone] I discussed the patients case with Dr. Godinez [facility] Hospitalist. The patient will be further evaluated. Impression Primary Impression: Acute respiratory distress Additional Impressions: COPD exacerbation Pleural effusion, right Scribe Attestation The scribe's documentation has been prepared under my direction and personally reviewed by me in its entirety. I confirm that the note above accurately reflects all work, treatment, procedures, and medical decision making performed by me. Departure Information Dispostion Being Evaluated By Hospitalist Referrals Sanjay Pedroza D.O. Pulmonary (PCP) Patient Instructions My [facility] Problem Qualifiers
[2017-02-11] MEDS ORDERED: ALBUT/IPRATROP 3MG/0.5MG NEB 3 ML VIAL INH ONE (21:30)
[2017-02-11 21:33] LABS: BASO % 0.2 %; BASO ABS # 0.04 K/uL (0-0.2); COMPLETE YES; EOS % 0.6 %; HEMATOCRIT 30.2 % (37-47); IG% 0.5 %; LYMPH % 9.9 %; MEAN CELL VOLUME 76.6 fL (80-100); MEAN CORPUSCULAR HEMOGLOBIN 25.1 pg (25-34); MEAN CORPUSCULAR HGB CONC 32.8 g/dl (32-36); MONO % 7.9 %; NEUT % 80.9 %; PLATELET COUNT 882 K/uL (130-400); RED BLOOD COUNT 3.94 M/uL (4.2-5.4); WHITE BLOOD COUNT 23.17 K/uL (4.8-10.8)
--- NOTE | 2017-02-11 21:45 | DIAGNOSTIC IMAGING REPORT ---
CHEST ONE VIEW PORTABLE HISTORY: Short of breath COMPARISON: PET CT 02/05/2017. FINDINGS: Large right lung mass is again noted. Small right pleural effusion persists. Left lower lobe nodules are unchanged. No new focal lung consolidations. No pneumothorax. The heart is normal in size. IMPRESSION: No significant change compared to prior studies. Large right lung mass and small right pleural effusion persist. Electronically signed by: Silas Gross M.D. 02/11/2017 9:43 PM Dictated Date/Time: 02/11/2017 9:40 PM
[2017-02-11 22:16] LABS: BLOOD UREA NITROGEN 16 mg/dl (7-18); BUN/CREATININE RATIO 18.1 (10-20); CALCIUM 10.7 mg/dl (8.5-10.1); CARBON DIOXIDE 28 mmol/L (21-32); CHLORIDE 94 mmol/L (98-107); CREATININE 0.89 mg/dl (0.60-1.20); GLUCOSE 96 mg/dl (70-99); SODIUM 130 mmol/L (136-145)
[2017-02-11] MEDS ORDERED: MELO7.5T6 PO (22:22)
[2017-02-11] MEDS ORDERED: OXYC-59 PO (22:22)
[2017-02-11 22:27] VITALS: PULSE 87; O2SAT 100
[2017-02-11 23:14] LABS: ARTERIAL BLD GAS O2 SATURATION 94.6 % (90-95); ARTERIAL BLOOD GAS BASE EXCESS 1.9 mEq/L (-9-1.8); ARTERIAL BLOOD GAS HCO3 26 mmol/L (19-24); ARTERIAL BLOOD GAS PO2 87 mm/Hg (80-95); ARTERIAL BLOOD GAS pH 7.47 (7.35-7.45)
[2017-02-11 23:15] LABS: ALLEN TEST POS (POS); O2 ADMINISTRATION 2 L
[2017-02-11 23:24] LABS: POTASSIUM 4.1 mmol/L (3.5-5.1)
[2017-02-11 23:35] LABS: MAGNESIUM 2.3 mg/dl (1.8-2.4)
[2017-02-12] VITALS (10 sets, daily range): BP systolic 151–167; BP diastolic 48–83; PULSE 74–104; TEMP 36.4–37.1; O2SAT 91–98; Ht 152.4 cm; Wt 48.3 kg
[2017-02-12] MEDS ORDERED: ENOXAPARIN 40 MG/0.4 ML SYR SQ SCH (00:15)
[2017-02-12] MEDS ORDERED: ONDANSETRON INJ 2 MG/ML 2 ML VIAL IV PRN ×2 (00:15→00:45)
[2017-02-12] MEDS ORDERED: ACETAMINOPHEN 325 MG TAB PO PRN (00:15)
[2017-02-12] MEDS ORDERED: NITROGLYCERIN 0.4 MG SL PER TAB CHARGE SL PRN (00:45)
[2017-02-12] MEDS ORDERED: OPTIRAY 320 IV PRN (01:00)
[2017-02-12] MEDS ORDERED: LORAZEPAM 0.5 MG TAB PO PRN (01:00)
[2017-02-12] MEDS ORDERED: MoRPHine SULFATE 2 MG/ML CARP ONE (01:55)
[2017-02-12] MEDS: LEVALBUTEROL 0.31MG/3 ML VIAL INH SCH ×4 (02:13→19:22)
--- NOTE | 2017-02-12 02:15 | History and Physical ---
History & Physical Date & Time of Service: February 12, 2017 at 02:02 Chief Complaint: Copd, Dyspnea, Mass Of Lung Primary Care Physician: Leah Cisneros M.D. History of Present Illness Source: patient, family this is a 71 yo f with a history of severe COPD and metastatic lung cancer that is presenting to us with worsening shortness of breath. She states that over the past couple of weeks she has had progression in her shortness of breath and today she is quite uncomfortable which coaxed her to come to the ED for evaluation. She has a productive cough of yellow sputum which remains unchanges however her dyspnea at rest is what is getting worse. She denies any chest pain , abdominal pain, numbness/ tingling of limbs. She does have LE edema which has been worsening. She has chronic back pain from the cancer and affects both the left and right upper back. She did follow with dr Pedroza however the physician is no longer local and patient has been without a hand mexican food maker since. She does follow with Dr costello and Dr Jeronimo. She was to have a biopsy done of her mass next week. The most recent Ct of chest reveals an 11 cm mass in the right lung, a 2 cm and a 1 cm mass in the left lung a d 4 mm mass in the lingula and changes to T8 suspicious for mets. Past Medical/Surgical History Medical Problems: (1) COPD (chronic obstructive pulmonary disease) Status: Chronic (2) Emphysema (subcutaneous) (surgical) resulting from a procedure Status: Chronic Family History Patient reports no known family medical history. Social History Smoking Status: Current Every Day Smoker (smoking 6 cig/ day, down from 2 PPD x 60 years) Smokeless Tobacco Use: No Alcohol Use: none Drug Use: none Marital Status: Occupational Status: disabled Multi-Drug Resistant Organisms History of MDRO: No Allergies Uncoded Allergies: anesthesia gas (Allergy, Unknown, sick, 03/17/16) Home Medications Scheduled Aspirin (Aspirin Ec), 81 MG PO DAILY Cholecalciferol (Vitamin D), 1,000 UNIT PO DAILY Ipratropium-Albuterol (Duoneb), 1 TREATMENT INH QID Meloxicam (Mobic), 1 TAB PO BID Mometasone Furoate-Formoterol (Dulera 200/5 Mcg), 2 PUFFS INH BID Multiple Vitamins W/ Minerals (Multivitamin Adults 50+), 1 TAB PO DAILY Oxycodone/Acetaminophen 10MG/325MG (Percocet 10MG/325MG), 1 TAB PO QID Simvastatin (Zocor), 10 MG PO QPM Scheduled PRN Lorazepam (Lorazepam), 0.5 MG PO QD PRN for ANXIETY Review of Systems Constitutional: No fever ENT: No hearing loss Respiratory: + cough, + dyspnea at rest, + dyspnea on exertion, + shortness of breath, + sputum, + wheezing Cardiovascular: No chest pain Abdomen: + problem reported (poor appetite), No constipation, No diarrhea, No nausea, No pain, No vomiting Musculoskeletal: No joint pain, No muscle pain Genitourinary - Female: No dysuria Neurologic: + weakness, No balance problems, No numbness/tingling Endocrine: + fatigue Hematologic / Lymphatic: No abnormal bleeding/bruising Integumentary: No rash Physical Exam Vital Signs Date Time Temp Pulse Resp B/P Pulse Ox O2 Delivery O2 Flow Rate FiO2 02/12/17 01:06 97 18 158/81 97 Nasal Cannula 2.5 02/12/17 00:43 96 20 161/76 98 Nasal Cannula 2.5 02/12/17 00:28 109 02/12/17 00:27 107 02/11/17 22:56 101 18 184/96 100 Nasal Cannula 2.0 02/11/17 22:27 87 18 100 Nasal Cannula 2.0 02/11/17 21:21 97 02/11/17 21:11 94 Nasal Cannula 2.5 02/11/17 20:52 36.9 102 24 160/87 95 Room Air 02/11/17 20:47 95 Room Air General Appearance: + moderate distress, + cachetic Head: normocephalic, atraumatic Eyes: normal inspection ENT: normal ENT inspection Neck: supple Respiratory/Chest: + respiratory distress, + decreased breath sounds ( throughout and in particular right mid lung) Cardiovascular: regular rate, rhythm, no murmur Abdomen/GI: normal bowel sounds, non tender, soft Back: normal inspection Extremities/Musculoskelatal: normal inspection, no calf tenderness, no pedal edema Neurologic/Psych: alert, normal mood/affect, oriented x 3 Skin: normal color, warm/dry, no rash Lymphatic: no adenopathy Diagnostics Laboratory Results Results Past 24 Hours Test 02/11/17 20:48 02/11/17 23:00 02/12/17 01:55 Range/Units White Blood Count 23.17 4.8-10.8 K/uL Red Blood Count 3.94 4.2-5.4 M/uL Hemoglobin 9.9 12.0-16.0 g/dL Hematocrit 30.2 37-47 % Mean Corpuscular Volume 76.6 80-100 fL Mean Corpuscular Hemoglobin 25.1 25-34 pg Mean Corpuscular Hemoglobin Concent 32.8 32-36 g/dl Platelet Count 882 130-400 K/uL Mean Platelet Volume 8.0 7.4-10.4 fL Neutrophils (%) (Auto) 80.9 % Lymphocytes (%) (Auto) 9.9 % Monocytes (%) (Auto) 7.9 % Eosinophils (%) (Auto) 0.6 % Basophils (%) (Auto) 0.2 % Neutrophils # (Auto) 18.75 1.4-6.5 K/uL Lymphocytes # (Auto) 2.30 1.2-3.4 K/uL Monocytes # (Auto) 1.83 0.11-0.59 K/uL Eosinophils # (Auto) 0.13 0-0.5 K/uL Basophils # (Auto) 0.04 0-0.2 K/uL RDW Standard Deviation 48.8 36.4-46.3 fL RDW Coefficient of Variation 17.3 11.5-14.5 % Immature Granulocyte % (Auto) 0.5 % Immature Granulocyte # (Auto) 0.12 0.00-0.02 K/uL Sodium Level 130 136-145 mmol/L Potassium Level 4.1 3.5-5.1 mmol/L Chloride Level 94 98-107 mmol/L Carbon Dioxide Level 28 21-32 mmol/L Anion Gap 8.0 3-11 mmol/L Blood Urea Nitrogen 16 7-18 mg/dl Creatinine 0.89 0.60-1.20 mg/dl Est Creatinine Clear Calc Drug Dose 42.2 ml/min Estimated GFR () 76.1 Estimated GFR (Non- 65.7 BUN/Creatinine Ratio 18.1 10-20 Random Glucose 96 70-99 mg/dl Calcium Level 10.7 8.5-10.1 mg/dl Magnesium Level 2.3 1.8-2.4 mg/dl Total Creatine Kinase 31 26-192 U/L Creatine Kinase MB 2.1 0.5-3.6 ng/ml Creatine Kinase MB Ratio 0-3.0 Troponin I < 0.015 0-0.045 ng/ml Pro-B-Type Natriuretic Peptide 1513 0-900 pg/ml Chemistry Specimen Hemolysis Arterial Blood pH 7.47 7.35-7.45 Arterial Blood Partial Pressure CO2 36 35-46 mmHg Arterial Blood Partial Pressure O2 87 80-95 mm/Hg Arterial Blood HCO3 26 19-24 mmol/L Arterial Blood Oxygen Saturation 94.6 90-95 % Arterial Blood Base Excess 1.9 -9-1.8 mEq/L Arterial Blood Gas Delivery 2 L Diallo Test POS POS Total Bilirubin 0.4 0.2-1 mg/dl Direct Bilirubin 0.1 0-0.2 mg/dl Aspartate Amino Transf (AST/SGOT) 18 15-37 U/L Alanine Aminotransferase (ALT/SGPT) 19 12-78 U/L Alkaline Phosphatase 134 45-117 U/L Total Protein 7.9 6.4-8.2 gm/dl Albumin 2.3 3.4-5.0 gm/dl Diagnostic Radiology [~ rep ct add3]] CHEST ONE VIEW PORTABLE HISTORY: Short of breath COMPARISON: PET CT 02/05/2017. FINDINGS: Large right lung mass is again noted. Small right pleural effusion persists. Left lower lobe nodules are unchanged. No new focal lung consolidations. No pneumothorax. The heart is normal in size. IMPRESSION: No significant change compared to prior studies. Large right lung mass and small right pleural effusion persist. Impression Assessment and Plan This is a 71 yo f with acute on chronic hypoxic respiratory failure in the setting of metastatic lung cancer and emphysema Acute hypoxic Resp failure secondary to Metastatic process vs acute on chronic COPD exacerbation VS PE - Based on the progression of the disease it may very well be secondary to the lung carcinoma - Consult hem/ onc and thoracic surgery - O2 per nursing protocol - Azithro and Zosyn empirically - will add procal to the amlabs - may very be elevated because of the carcinoma however may help with downgrading the abx - Solu medrol 60 mg bid - Xopenex as duoneb makes patient nauseated - continue Dulera r/o PE - If dopplers are abn no need for CT chest however if negative would be warranted Bigeminy - Patient had an episode of nausea and bigeminy in the ED - will admit to tele for obs overnight Hyponatremia - most likely paraneoplastic - NSS @ 80cc/h - recheck in the am and adjust accordingly Elevated WBC and Plt - infectious vs a paraneoplastic process - hem/ onc consult - will follow CBC Emphysema - treatment as noted above hypercholesterolemia - continue simvastatin Anxiety - continue ativan DVT Prophylaxis - SCD in case patient will under go procedure DNR Level of Care Telemetry Resuscitation Status DO NOT RESUSCITATE VTE Prophylaxis VTE Risk Assessment Done? Y/N: Yes Risk Level: Moderate Given or contraindicated: SCD's Social Service Consult Cancer Patient Under [place] Note Total Time: Critical Care 30 - 74 minutes Additional Copies To Leah Cisneros M.D. Assessment and Plan Attending Addendum: I have physically seen and examined this patient, have directed their medical care, have supervised the medical residents activities, and agree with the H&P as noted above, with the following changes: NONE
[2017-02-12] MEDS: SODIUM CHLORIDE 0.9% 1000ML 1,000 ML IV SCH ×2 (02:25→16:16)
[2017-02-12] MEDS ORDERED: PIPERACILL/TAZOBAC IV 3.375 GM in DEXTROSE 5% 100ML 100 ML IV ONE (02:30)
[2017-02-12] MEDS: AZITHROMYCIN IV 500 MG in DEXTROSE 5% 250ML 250 ML IV SCH (03:48)
[2017-02-12 06:03] LABS: INR 1.1 (0.9-1.1); PROTHROMBIN TIME (PATIENT) 11.3 SECONDS (9.0-12.0)
[2017-02-12 06:05] LABS: COMPLETE YES; HEMATOCRIT 28.2 % (37-47); IG% 0.2 %; LYMPH % 3.5 %; LYMPH ABS # 0.44 K/uL (1.2-3.4); MEAN CELL VOLUME 76.2 fL (80-100); MEAN CORPUSCULAR HEMOGLOBIN 24.9 pg (25-34); MEAN CORPUSCULAR HGB CONC 32.6 g/dl (32-36); MEAN PLATELET VOLUME 7.7 fL (7.4-10.4); MONO % 0.2 %; NEUT % 96.1 %; PLATELET COUNT 718 K/uL (130-400)
[2017-02-12 06:36] LABS: BUN/CREATININE RATIO 16.6 (10-20); CALCIUM 10.1 mg/dl (8.5-10.1); CREATININE 0.99 mg/dl (0.60-1.20)
--- NOTE | 2017-02-12 07:00 | DIAGNOSTIC IMAGING REPORT ---
ULTRASOUND BILATERAL LOWER EXTREMITY VENOUS CLINICAL HISTORY: Dyspnea. Clinical concern for deep venous thrombosis. COMPARISON STUDY: No priors. TECHNIQUE: Real-time, grayscale, and color Doppler sonography of the deep veins of the right and left lower extremity was performed from the inguinal crease to the calf. Compression and augmentation were utilized. FINDINGS: There is no sonographic evidence of deep venous thrombosis identified in the right or left lower extremity. The common femoral, superficial femoral, and popliteal veins are patent and normally compressible bilaterally. The greater saphenous vein and the profunda femoris vein at the junction with the common femoral vein are clear in both legs. The visualized calf veins are patent bilaterally. IMPRESSION: There is no sonographic evidence of deep venous thrombosis identified in the right or left lower extremity. Electronically signed by: Hero Cabrera M.D. 02/12/2017 6:59 AM Dictated Date/Time: 02/12/2017 6:59 AM
[2017-02-12] MEDS: PIPERACILL/TAZOBAC IV 3.375 GM in DEXTROSE 5% 100ML IV SCH ×3 (08:01→23:53)
[2017-02-12] MEDS: MoRPHine SULFATE 2 MG/ML CARP IV PRN ×3 (08:01→21:40)
[2017-02-12] MEDS: ASPIRIN 81 MG ECTAB PO SCH (08:01)
[2017-02-12] MEDS: MELOXICAM 7.5 MG TAB PO SCH ×2 (08:01→21:39)
[2017-02-12] MEDS: CHOLECALCIFEROL 1000 INTER.UNIT TAB PO SCH (08:02)
[2017-02-12] MEDS: METHYLPREDNISOLONE IV 60 MG in SYRINGE 0 ML IV SCH ×2 (08:02→21:39)
[2017-02-12] MEDS: CEROVITE ADV FORMULA TAB PO SCH (08:02)
[2017-02-12] MEDS ORDERED: PIPERACILL/TAZOBAC CONSULT ACTIVE PRN (08:30)
--- NOTE | 2017-02-12 10:44 | Oncology Consultation ---
Oncology/Heme Consultation Date of Consultation: February 12, 2017. Attending Physician: Nash Tate MD Reason for Consultation: Probable underlying lung carcinoma History of Present Illness Ms. Jain was seen in our clinic first on January 30. She is a 71-year-old female who was seen in our clinic for evaluation and management of a probable underlying neoplastic process. Story in our records reflect that in 2012 she had developed a 3 cm right lower lobe lesion with a biopsy done in 2012. Pathology at that time was negative. In September 2016 she was hospitalized with his scan confirming bilateral lobar neoplastic type changes including the right lower lobe mass now measuring approximately [address] scan also identified a 4 cm mass in the upper pole of the left kidney perhaps representing renal cell carcinoma. She is now minute with shortness of breath and overall decline. She denies fever. She has been spending most of her day in her favorite chair or bed. Biopsy has yet to be done. Thoracic surgery has been consulted. Past Medical/Surgical History Medical Problems: (1) Acute bronchitis Status: Acute (2) Acute respiratory distress Status: Acute (3) COPD exacerbation Status: Acute (4) COPD exacerbation Status: Acute (5) Pleural effusion, right Status: Acute Family History Patient reports no known family medical history. Records reflect that her mother may have had lymphoma. Social History [id number] cigarette smoking history Smoking Status: Current Every Day Smoker (smoking 6 cig/ day, down from 2 PPD x 60 years) Smokeless Tobacco Use: No Alcohol Use: none Drug Use: none Marital Status: Occupation Status: disabled Allergies Uncoded Allergies: anesthesia gas (Allergy, Unknown, sick, 03/17/16) Home Medications Scheduled Aspirin (Aspirin Ec), 81 MG PO DAILY Cholecalciferol (Vitamin D), 1,000 UNIT PO DAILY Ipratropium-Albuterol (Duoneb), 1 TREATMENT INH QID Meloxicam (Mobic), 1 TAB PO BID Mometasone Furoate-Formoterol (Dulera 200/5 Mcg), 2 PUFFS INH BID Multiple Vitamins W/ Minerals (Multivitamin Adults 50+), 1 TAB PO DAILY Oxycodone/Acetaminophen 10MG/325MG (Percocet 10MG/325MG), 1 TAB PO QID Simvastatin (Zocor), 10 MG PO QPM Scheduled PRN Lorazepam (Lorazepam), 0.5 MG PO QD PRN for ANXIETY Current Inpatient Medications Current Inpatient Medications Medications (Trade) Dose Ordered Sig/[place]anning Route Start Time Stop Time Status Last Admin Dose Admin Acetaminophen (Tylenol Tab) 650 mg Q4H PRN PO 02/12/17 00:15 03/14/17 00:14 Ondansetron HCl (Zofran Inj) 4 mg Q6H PRN IV 02/12/17 00:15 03/14/17 00:14 Nitroglycerin (Nitrostat Tab) 0.4 mg UD PRN SL 02/12/17 00:45 03/14/17 00:44 Morphine Sulfate 2 mg 2 mg Q30M PRN IV 02/12/17 00:45 02/26/17 00:44 02/12/17 08:01 2 MG Methylprednisolone Sodium Succinate/ Syringe (Solu-Medrol IV/ Syringe) 0.96 ml @ 1.5 mls/min Q12H IV 02/12/17 10:00 03/14/17 09:59 02/12/17 08:02 1.5 MLS/MIN Levalbuterol (Xopenex 0.31MG/ 3ML Neb) 0.31 mg Q6R INH 02/12/17 03:00 03/14/17 02:59 02/12/17 07:38 0.31 MG Aspirin (Ecotrin Tab) 81 mg DAILY PO 02/12/17 09:00 03/14/17 08:59 02/12/17 08:01 81 MG Cholecalciferol (Vitamin D Tab) 1,000 inter.unit DAILY PO 02/12/17 09:00 03/14/17 08:59 02/12/17 08:02 1,000 INTER.UNIT Lorazepam (Ativan Tab) 0.5 mg DAILY PRN PO 02/12/17 01:00 03/14/17 00:59 Meloxicam (Mobic Tab) 7.5 mg BID PO 02/12/17 09:00 03/14/17 08:59 02/12/17 08:01 7.5 MG Multivitamins/ Minerals (Multivitamin W/ Minerals Tab) 1 tab DAILY PO 02/12/17 09:00 03/14/17 08:59 02/12/17 08:02 1 TAB Oxycodone/ Acetaminophen (Percocet 10-325MG Tab) 1 tab QID PRN PO 02/12/17 02:21 02/26/17 02:20 Simvastatin (Zocor Tab) 10 mg QPM PO 02/12/17 21:00 03/14/17 20:59 Miscellaneous Information (Order Awaiting Action) 1 ea QS N/A 02/12/17 08:00 03/14/17 07:59 Ioversol 100 ml 100 ml UD PRN IV 02/12/17 01:00 02/16/17 00:59 Sodium Chloride 1,000 ml @ 80 mls/hr [id number] IV 02/12/17 01:00 02/13/17 14:29 02/12/17 02:25 80 MLS/HR Azithromycin 500 mg/Dextrose 255 ml @ 125 mls/hr Q24H IV 02/12/17 04:00 02/19/17 03:59 02/12/17 03:48 125 MLS/HR Piperacillin Sod/ Tazobactam Sod/ Dextrose (Zosyn Iv/D5 100ml) 115 ml @ 28.75 mls/ hr Q8H IV 02/12/17 08:00 02/19/17 07:59 02/12/17 08:01 28.75 MLS/HR Piperacillin Sod/ Tazobactam Sod (Consult) 1 ea UD PRN N/A 02/12/17 08:30 03/14/17 08:29 Review of Systems Constitutional: Negative for weight loss, night sweats, or fever Eyes: Negative for event change of vision ENT: Negative for epistaxis, nasal discharge, sore throat, or deafness Cardiovascular: Negative for chest pain, palpitations, dizziness, diaphoresis Respiratory: Increasing shortness of breath and increasing weakness Gastrointestinal: Negative for significant diarrhea although has had an occasional loose stool, denies hematemesis, melena, nausea, vomiting, or dyspepsia Integumentary (skin): Negative for rash or jaundice discoloration Genitourinary: Negative for urinary frequency, hematuria, or dysuria Neurological: Negative for weakness, seizure activity, headache, or dizziness Lymphatic/Hematologic: Negative for petechiae, bleeding or new adenopathy Musculoskeletal: Negative for new joint or back pain Allergic/Immunologic: Negative for unusual rash or pruritis. Physical Exam Date Time Temp Pulse Resp B/P Pulse Ox O2 Delivery O2 Flow Rate FiO2 5/22/17 08:00 Nasal Cannula 3.0 02/12/17 08:00 36.5 90 22 158/83 97 Nasal Cannula 2.0 02/12/17 07:42 85 18 98 Nasal Cannula 3.0 02/12/17 04:02 Nasal Cannula 3.0 02/12/17 02:45 37.1 102 20 151/81 97 Nasal Cannula 3.0 02/12/17 02:13 102 18 96 Nasal Cannula 3.0 02/12/17 01:53 36.6 104 21 167/70 97 Nasal Cannula 4.0 02/12/17 01:06 97 18 158/81 97 Nasal Cannula 2.5 02/12/17 00:43 96 20 161/76 98 Nasal Cannula 2.5 02/12/17 00:28 109 02/12/17 00:27 107 02/11/17 22:56 101 18 184/96 100 Nasal Cannula 2.0 02/11/17 22:27 87 18 100 Nasal Cannula 2.0 02/11/17 21:21 97 02/11/17 21:11 94 Nasal Cannula 2.5 02/11/17 20:52 36.9 102 24 160/87 95 Room Air 02/11/17 20:47 95 Room Air Constitutional: vitals are stable. Eyes: Eyes are KAUSHAL EOMI without conjuctival erythema or icterus. ENT: External examination was negative for masses. Neck: Negative for masses or palpable thyromegaly Respiratory: Lung sounds were generally clear but also decreased bilaterally Cardiovascular: Heart was RRR without significant murmur, gallops aoe rubs Gastrointestinal: No palpable hepatic or splenomegaly. The abdomen was soft with normal bowel sounds. Lymphatic system: there was no palpable peripheral lymphadenopathy Musculoskeletal System: The musculoskeletal system seemed concordant with age. Skin: The skin was negative for jaundice. Neurologic exam: The exam was negative for any focal findings. Deep tendon reflexes were equal and symmetrical. Psychiatric exam: Was essentially negative with normal mood and effect. Breast exam: Not done Extremities: +1 to plus 2 bilateral nontender pitting lower extremity edema Laboratory Results Last 24 Hours Test 02/11/17 20:48 02/11/17 23:00 02/12/17 01:55 02/12/17 05:40 White Blood Count 23.17 K/uL 12.60 K/uL Red Blood Count 3.94 M/uL 3.70 M/uL Hemoglobin 9.9 g/dL 9.2 g/dL Hematocrit 30.2 % 28.2 % Mean Corpuscular Volume 76.6 fL 76.2 fL Mean Corpuscular Hemoglobin 25.1 pg 24.9 pg Mean Corpuscular Hemoglobin Concent 32.8 g/dl 32.6 g/dl Platelet Count 882 K/uL 718 K/uL Mean Platelet Volume 8.0 fL 7.7 fL Neutrophils (%) (Auto) 80.9 % 96.1 % Lymphocytes (%) (Auto) 9.9 % 3.5 % Monocytes (%) (Auto) 7.9 % 0.2 % Eosinophils (%) (Auto) 0.6 % 0.0 % Basophils (%) (Auto) 0.2 % 0.0 % Neutrophils # (Auto) 18.75 K/uL 12.10 K/uL Lymphocytes # (Auto) 2.30 K/uL 0.44 K/uL Monocytes # (Auto) 1.83 K/uL 0.03 K/uL Eosinophils # (Auto) 0.13 K/uL 0.00 K/uL Basophils # (Auto) 0.04 K/uL 0.00 K/uL RDW Standard Deviation 48.8 fL 47.5 fL RDW Coefficient of Variation 17.3 % 17.2 % Immature Granulocyte % (Auto) 0.5 % 0.2 % Immature Granulocyte # (Auto) 0.12 K/uL 0.03 K/uL Sodium Level 130 mmol/L 131 mmol/L Potassium Level mmol/L 4.1 mmol/L 4.0 mmol/L Chloride Level 94 mmol/L 95 mmol/L Carbon Dioxide Level 28 mmol/L 30 mmol/L Anion Gap 8.0 mmol/L 6.0 mmol/L Blood Urea Nitrogen 16 mg/dl 16 mg/dl Creatinine 0.89 mg/dl 0.99 mg/dl Est Creatinine Clear Calc Drug Dose 42.2 ml/min 38.0 ml/min Estimated GFR () 76.1 66.9 Estimated GFR (Non- 65.7 57.7 BUN/Creatinine Ratio 18.1 16.6 Random Glucose 96 mg/dl 221 mg/dl Calcium Level 10.7 mg/dl 10.1 mg/dl Magnesium Level mg/dl 2.3 mg/dl Total Creatine Kinase U/L 31 U/L Creatine Kinase MB 2.1 ng/ml Creatine Kinase MB Ratio Troponin I < 0.015 ng/ml Pro-B-Type Natriuretic Peptide 1513 pg/ml Chemistry Specimen Hemolysis Arterial Blood pH 7.47 Arterial Blood Partial Pressure CO2 36 mmHg Arterial Blood Partial Pressure O2 87 mm/Hg Arterial Blood HCO3 26 mmol/L Arterial Blood Oxygen Saturation 94.6 % Arterial Blood Base Excess 1.9 mEq/L Arterial Blood Gas Delivery 2 L Diallo Test POS Total Bilirubin 0.4 mg/dl Direct Bilirubin 0.1 mg/dl Aspartate Amino Transf (AST/SGOT) 18 U/L Alanine Aminotransferase (ALT/SGPT) 19 U/L Alkaline Phosphatase 134 U/L Total Protein 7.9 gm/dl Albumin 2.3 gm/dl Ionized Calcium 1.27 mmol/l Prothrombin Time 11.3 SECONDS Prothromb Time International Ratio 1.1 Assessment & Plan X-rays reviewed. Probable lung carcinoma. I understand thoracic surgery has visited and a biopsy is being planned. 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 She has had a leukocytosis since at least September. We will arrange for follow-up in our clinic. Also should ask for radiation therapy consult (will place).
--- NOTE | 2017-02-12 10:51 | Family Medicine Progress Note ---
Progress Note Date of Service February 12, 2017. 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 Continues to complain of pain in the back and requests more pain medications. Denies any palpitations, chest pain, shortness of breath. Constitutional: No chills, No fever Eyes: No worsening of vision ENT: No hearing loss Respiratory: + cough, + shortness of breath, + sputum (scant mucoid sputum) Cardiovascular: No chest pain Abdomen: No diarrhea, No nausea, No pain, No vomiting Musculoskeletal: + joint pain (back pain( chronic)) Female : No dysuria, No urinary frequency Neurologic: No memory loss, No paralysis, No weakness Psychiatric: No depression symptoms Heme: No abnormal bleeding/bruising Medications Current Inpatient Medications Medications (Trade) Dose Ordered Sig/Channing Route Start Time Stop Time Status Last Admin Dose Admin Acetaminophen (Tylenol Tab) 650 mg Q4H PRN PO 02/12/17 00:15 03/14/17 00:14 Ondansetron HCl (Zofran Inj) 4 mg Q6H PRN IV 02/12/17 00:15 03/14/17 00:14 Nitroglycerin (Nitrostat Tab) 0.4 mg UD PRN SL 02/12/17 00:45 03/14/17 00:44 Morphine Sulfate 2 mg 2 mg Q30M PRN IV 02/12/17 00:45 02/26/17 00:44 02/12/17 08:01 2 MG Methylprednisolone Sodium Succinate/ Syringe (Solu-Medrol IV/ Syringe) 0.96 ml @ 1.5 mls/min Q12H IV 02/12/17 10:00 03/14/17 09:59 02/12/17 08:02 1.5 MLS/MIN Levalbuterol (Xopenex 0.31MG/ 3ML Neb) 0.31 mg Q6R INH 02/12/17 03:00 03/14/17 02:59 02/12/17 07:38 0.31 MG Aspirin (Ecotrin Tab) 81 mg DAILY PO 02/12/17 09:00 03/14/17 08:59 02/12/17 08:01 81 MG Cholecalciferol (Vitamin D Tab) 1,000 inter.unit DAILY PO 02/12/17 09:00 03/14/17 08:59 02/12/17 08:02 1,000 INTER.UNIT Lorazepam (Ativan Tab) 0.5 mg DAILY PRN PO 02/12/17 01:00 03/14/17 00:59 Meloxicam (Mobic Tab) 7.5 mg BID PO 02/12/17 09:00 03/14/17 08:59 02/12/17 08:01 7.5 MG Multivitamins/ Minerals (Multivitamin W/ Minerals Tab) 1 tab DAILY PO 02/12/17 09:00 03/14/17 08:59 02/12/17 08:02 1 TAB Oxycodone/ Acetaminophen (Percocet 10-325MG Tab) 1 tab QID PRN PO 02/12/17 02:21 02/26/17 02:20 Simvastatin (Zocor Tab) 10 mg QPM PO 02/12/17 21:00 03/14/17 20:59 Miscellaneous Information (Order Awaiting Action) 1 ea QS N/A 02/12/17 08:00 03/14/17 07:59 Ioversol 100 ml 100 ml UD PRN IV 02/12/17 01:00 02/16/17 00:59 Sodium Chloride 1,000 ml @ 80 mls/hr [id number] IV 02/12/17 01:00 02/13/17 14:29 02/12/17 02:25 80 MLS/HR Azithromycin 500 mg/Dextrose 255 ml @ 125 mls/hr Q24H IV 02/12/17 04:00 02/19/17 03:59 02/12/17 03:48 125 MLS/HR Piperacillin Sod/ Tazobactam Sod/ Dextrose (Zosyn Iv/D5 100ml) 115 ml @ 28.75 mls/ hr Q8H IV 02/12/17 08:00 02/19/17 07:59 02/12/17 08:01 28.75 MLS/HR Piperacillin Sod/ Tazobactam Sod (Consult) 1 ea UD PRN N/A 02/12/17 08:30 03/14/17 08:29 Objective Vital Signs Date Time Temp Pulse Resp B/P Pulse Ox O2 Delivery O2 Flow Rate FiO2 02/12/17 08:00 Nasal Cannula 3.0 02/12/17 08:00 36.5 90 22 158/83 97 Nasal Cannula 2.0 02/12/17 07:42 85 18 98 Nasal Cannula 3.0 02/12/17 04:02 Nasal Cannula 3.0 02/12/17 02:45 37.1 102 20 151/81 97 Nasal Cannula 3.0 02/12/17 02:13 102 18 96 Nasal Cannula 3.0 02/12/17 01:53 36.6 104 21 167/70 97 Nasal Cannula 4.0 02/12/17 01:06 97 18 158/81 97 Nasal Cannula 2.5 02/12/17 00:43 96 20 161/76 98 Nasal Cannula 2.5 02/12/17 00:28 109 02/12/17 00:27 107 02/11/17 22:56 101 18 184/96 100 Nasal Cannula 2.0 02/11/17 22:27 87 18 100 Nasal Cannula 2.0 02/11/17 21:21 97 02/11/17 21:11 94 Nasal Cannula 2.5 02/11/17 20:52 36.9 102 24 160/87 95 Room Air 02/11/17 20:47 95 Room Air Physical Exam General Appearance: WD/WN, no apparent distress Eyes: normal inspection ENT: normal ENT inspection Neck: supple Respiratory/Chest: chest non-tender, lungs clear, normal breath sounds, no respiratory distress, no accessory muscle use Cardiovascular: regular rate, rhythm Abdomen: normal bowel sounds, non tender, no pulsatile mass Extremities: non-tender Neurologic/Psychiatric: alert, normal mood/affect, oriented x 3 Skin: normal color Laboratory Results 02/12/17 05:40 Red Blood Count 3.70, Mean Corpuscular Volume 76.2, Mean Corpuscular Hemoglobin 24.9, Mean Corpuscular Hemoglobin Concent 32.6, Mean Platelet Volume 7.7, Neutrophils (%) (Auto) 96.1, Lymphocytes (%) (Auto) 3.5, Monocytes (%) (Auto) 0.2, Eosinophils (%) (Auto) 0.0, Basophils (%) (Auto) 0.0, Neutrophils # (Auto) 12.10, Lymphocytes # (Auto) 0.44, Monocytes # (Auto) 0.03, Eosinophils # (Auto) 0.00, Basophils # (Auto) 0.00 02/12/17 05:40 Test 02/11/17 20:48 02/11/17 23:00 02/12/17 01:55 02/12/17 05:40 Creatine Kinase MB 2.1 ng/ml (0.5-3.6) Creatine Kinase MB Ratio (0-3.0) Troponin I < 0.015 ng/ml (0-0.045) Pro-B-Type Natriuretic Peptide 1513 pg/ml (0-900) Chemistry Specimen Hemolysis Arterial Blood pH 7.47 (7.35-7.45) Arterial Blood Partial Pressure CO2 36 mmHg (35-46) Arterial Blood Partial Pressure O2 87 mm/Hg (80-95) Arterial Blood HCO3 26 mmol/L (19-24) Arterial Blood Oxygen Saturation 94.6 % (90-95) Arterial Blood Base Excess 1.9 mEq/L (-9-1.8) Arterial Blood Gas Delivery 2 L [place] Test POS (POS) Magnesium Level 2.3 mg/dl (1.8-2.4) Total Bilirubin 0.4 mg/dl (0.2-1) Direct Bilirubin 0.1 mg/dl (0-0.2) Aspartate Amino Transf (AST/SGOT) 18 U/L (15-37) Alanine Aminotransferase (ALT/SGPT) 19 U/L (12-78) Alkaline Phosphatase 134 U/L (45-117) Total Creatine Kinase 31 U/L (26-192) Total Protein 7.9 gm/dl (6.4-8.2) Albumin 2.3 gm/dl (3.4-5.0) Ionized Calcium 1.27 mmol/l (1.12-1.32) White Blood Count 12.60 K/uL (4.8-10.8) Red Blood Count 3.70 M/uL (4.2-5.4) Hemoglobin 9.2 g/dL (12.0-16.0) Hematocrit 28.2 % (37-47) Mean Corpuscular Volume 76.2 fL (80-100) Mean Corpuscular Hemoglobin 24.9 pg (25-34) Mean Corpuscular Hemoglobin Concent 32.6 g/dl (32-36) Platelet Count 718 K/uL (130-400) Mean Platelet Volume 7.7 fL (7.4-10.4) Neutrophils (%) (Auto) 96.1 % Lymphocytes (%) (Auto) 3.5 % Monocytes (%) (Auto) 0.2 % Eosinophils (%) (Auto) 0.0 % Basophils (%) (Auto) 0.0 % Neutrophils # (Auto) 12.10 K/uL (1.4-6.5) Lymphocytes # (Auto) 0.44 K/uL (1.2-3.4) Monocytes # (Auto) 0.03 K/uL (0.11-0.59) Eosinophils # (Auto) 0.00 K/uL (0-0.5) Basophils # (Auto) 0.00 K/uL (0-0.2) RDW Standard Deviation 47.5 fL (36.4-46.3) RDW Coefficient of Variation 17.2 % (11.5-14.5) Immature Granulocyte % (Auto) 0.2 % Immature Granulocyte # (Auto) 0.03 K/uL (0.00-0.02) Prothrombin Time 11.3 SECONDS (9.0-12.0) Prothromb Time International Ratio 1.1 (0.9-1.1) Anion Gap 6.0 mmol/L (3-11) Est Creatinine Clear Calc Drug Dose 38.0 ml/min Estimated GFR () 66.9 Estimated GFR (Non- 57.7 BUN/Creatinine Ratio 16.6 (10-20) Calcium Level 10.1 mg/dl (8.5-10.1) Assessment and Plan 71-year-old female with past medical history of metastatic lung cancer , severe COPD admitted with respiratory distress Acute hypoxic respiratory failure secondary to metastatic lung cancer: - Continue O2 per protocol -Continue azithromycin, Zosyn -Continue Solu-Medrol , Xopenex, Dulera - Venous Dopplers negative - CT surgery consult- scheduled for biopsy tomorrow - smoking cessation counseling, NicoDerm patch - CTA for PE deferred for now as she is no longer hypoxic, tachycardic Hyponatremia: - Continue NSS - Monitor Hyperlipidemia : -Continue statin Anxiety: Continue Ativan DVT prophylaxis SCDs DO NOT RESUSCITATE History Resident Physician Supervision Note: I was present with Dr. Cuevas during the history and exam. I discussed the case with the resident and agree with the findings and plan as documented in the note. Any exceptions or clarifications are listed here. Pt seen and examined at bedside. Resting comfortably on room air at this time. Presently, reports upper back pain at baseline which normally treated with percocet 5 q6 and mobic 7.5 daily and is improved on IV morphine regimen. Reports minimal cough, SOB, lightheadedness, n/v, CP, palpitations, n/t/w. General Appearance: WD/WN, no apparent distress Respiratory: chest non-tender, no respiratory distress, decreased breath sounds (throughout) Cardiovascular: normal peripheral pulses, regular rate, rhythm, no edema, no murmur Assessment/Plan 71 y/o female h/o metastatic cancer w/ likely lung primary w/ acute on chronic hypoxic respiratory failure AHRF - acute on chronic COPD v. PNA v. sequelae of metaplasia - neg venous doppler - CT surgery consulted, input appreciated - interest in bx sooner than February - hematology/oncology consulted, input appreciated - agree w/ bx - continue solu-medrol, azithro and zosyn - continue xopenex (HFA 2/2 nausea), dulera - wean O2 as tolerated - f/u Cx Bigeminy - monitor on telemetry Hyponatremia - likely 2/2 paraneoplastic v. PNA v. other underlying disease - continue NSS, trend BMP daily Leukocytosis and elevated platelets - downtrending, likely leukemoid, repeat CBC in AM Emphysema - as above HLD - continue statin Anxiety - ativan PRN DNR Resident Tracking Resident Involvement: Resident Care Provided Care Provided: Adult [facility]
[2017-02-12] MEDS: OXYCODONE/ACETAMINOPHEN 10/325MG TAB PO PRN ×2 (11:13→19:48)
[2017-02-12] MEDS: NICOTINE 21 MG/24 HR TDSY TD SCH (19:49)
[2017-02-12] MEDS: LORAZEPAM 0.5 MG TAB PO PRN (21:38)
[2017-02-12] MEDS: SIMVASTATIN 10 MG TAB PO SCH (21:38)
[2017-02-12] MEDS: GUAIFENESIN 600 MG TABCR PO SCH (21:39)
[2017-02-13] VITALS (13 sets, daily range): BP systolic 133–161; BP diastolic 60–77; PULSE 79–103; TEMP 36.3–36.7; O2SAT 93–99
--- NOTE | 2017-02-13 00:31 | SURGICAL CONSULTATION ---
DATE OF CONSULTATION: 02/12/2017 REASON FOR CONSULTATION: Bilateral lower lobe masses. HISTORY OF PRESENT ILLNESS: This is a 71-year-old female that I met just last week. She has got a large mass in her right lower lobe and has been present since at least 2012; however, she tells me it has been at least 6 years. It continues to grow, was 3 cm in diameter 4 years ago and now is 11 cm. She did undergo a biopsy which was inconclusive back in 2012. The patient had declined having anything done about this. She has had increasing shortness of breath and has been declining. A CT scan shows that she has a spiculated lesion in the left lower lobe that certainly looks like a nonsmall cell lung carcinoma and is very large mass in the right lower lobe, which is essentially replacing the right lower lobe. She presented with pain in her right chest which is probably pleuritic in nature. I saw her last week and scheduled her for a navigational bronchoscopy of both lesions, as I feel this is a possibility we have 2 different processes here. I then reviewed her films today with Dr. Eris Veliz, he is going to perform a needle biopsy of the right lower lobe mass. The patient stated quite frankly in the office that she was not going to have "any cutting down." In addition, she had a mass described on her CT scan of her left kidney, however, that scan did show she does have a 2.1 cm mass in the pancreatic tail, which has significant metabolic activity. She had hilar mediastinal hypermetabolic extension of this mass. The left lower lobe mass was hypermetabolic. Much of this right mass is necrotic. PAST MEDICAL HISTORY: 1. Long history of cigarette smoking (2 packs per day for 60 years). 2. History of carotid artery stenosis. 3. Chronic obstructive pulmonary disease. 4. Questionable mass in the pancreatic tail. 5. Large mass of right lung which has been present for many years. 6. A left spiculated lesion in the lower lobe. PAST SURGICAL HISTORY: 1. History of jaw surgery. 2. Childbirth. SOCIAL HISTORY: The patient continues to smoke but is down to about half pack a day. She is retired. She does not use alcohol. She has declined and does not do a great deal now, although she used to. It is only recently since she stopped performing her normal activities of daily living. FAMILY MEDICAL HISTORY: The patient's mother lived to be 87 and she thinks she may have from a lymphoma. Father from Gilmer's chorea. MEDICATIONS: Please see chart. ALLERGIES: No known drug allergies. REVIEW OF SYSTEMS: The patient states that she has become less and less active. She has had decrease in appetite. She is unsure if she has lost weight. She denies any visual or auditory changes. She denies anterior chest pain or left chest pain, but she has some posterior right chest and back pain. She has become increasingly short of breath. She denies productive cough or hemoptysis. She does occasionally have a loose stool. She has no nausea or vomiting. She has no skin breakdown. She has had no urinary or other GI symptoms. She has had no peripheral edema. PHYSICAL EXAMINATION: GENERAL: This is an ill-appearing female who appears to be in no acute distress. HEENT: Her pupils are equally round and reactive. She does wear glasses. Her sclerae are pale but anicteric. She has bilateral arcus senilis. She has no nasolabial flattening. Her oral mucosa is fairly moist. LUNGS: He has decreased breath sounds on the right. She has no active wheezing. NECK: I detect no supraclavicular or cervical lymphadenopathy. HEART: She has a regular rate and rhythm of her heart. ABDOMEN: Soft, nontender. I detect no supraclavicular, axillary or inguinal adenopathy. EXTREMITIES: She does on exam have 1+ edema of her pretibial and pedal areas. She has no obvious focal deficits. NEUROLOGIC: She is awake, alert and oriented. ASSESSMENT AND PLAN: 1. Large right lung mass been present for several years. 2. Spiculated lesion left, lower lobe. 3. A 2.1 cm lesion at the tail of pancreas. PLAN: I met this woman about several days ago when setting her for a navigational bronchoscopy as I think that biopsying right mass as well as a left lower lobe mass to be helpful. I did review these films with Dr. Eris Veliz today and Dr. Veliz is going to perform a CT-guided biopsy of the right lower lobe mass. We will set this out to be done tomorrow. [facility]
[2017-02-13] MEDS: LEVALBUTEROL 0.31MG/3 ML VIAL INH SCH ×3 (01:50→14:47)
[2017-02-13] MEDS: AZITHROMYCIN IV 500 MG in DEXTROSE 5% 250ML 250 ML IV SCH (04:15)
[2017-02-13] MEDS: SODIUM CHLORIDE 0.9% 1000ML 1,000 ML IV SCH (04:15)
[2017-02-13] MEDS: OXYCODONE/ACETAMINOPHEN 10/325MG TAB PO PRN ×2 (05:42→20:14)
[2017-02-13 06:21] LABS: HEMATOCRIT 27.8 % (37-47); MEAN CELL VOLUME 75.3 fL (80-100); MEAN CORPUSCULAR HEMOGLOBIN 23.8 pg (25-34); MEAN CORPUSCULAR HGB CONC 31.7 g/dl (32-36); MEAN PLATELET VOLUME 7.6 fL (7.4-10.4); PLATELET COUNT 727 K/uL (130-400); RED BLOOD COUNT 3.69 M/uL (4.2-5.4); WHITE BLOOD COUNT 20.81 K/uL (4.8-10.8)
[2017-02-13 06:37] LABS: INR 1.1 (0.9-1.1); PROTHROMBIN TIME (PATIENT) 11.4 SECONDS (9.0-12.0)
[2017-02-13 06:57] LABS: BUN/CREATININE RATIO 19.8 (10-20); CREATININE 1.1 mg/dl (0.60-1.20); POTASSIUM 4.3 mmol/L (3.5-5.1)
[2017-02-13 07:26] LABS: BASO ABS # 0.01 K/uL (0-0.2); COMPLETE YES; IG% 0.3 %; LYMPH ABS # 0.84 K/uL (1.2-3.4); MONO % 2.3 %; NEUT % 93.4 %
--- NOTE | 2017-02-13 07:43 | Family Medicine Progress Note ---
Progress Note Date of Service February 13, 2017. 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 no acute events overnight. c/o feeling SOBOE . has not been using Dulera which is non formulary and complains of feeling chest tightness. denies palpitations, CP Constitutional: No fever Eyes: No worsening of vision ENT: No hearing loss Respiratory: + cough, + dyspnea on exertion, + shortness of breath, + sputum (scant) Cardiovascular: No chest pain Abdomen: No diarrhea, No nausea, No pain, No vomiting Musculoskeletal: No joint pain Female : No dysuria Neurologic: No memory loss Psychiatric: No depression symptoms Skin: No rash Medications Current Inpatient Medications Medications (Trade) Dose Ordered Sig/Channing Route Start Time Stop Time Status Last Admin Dose Admin Acetaminophen (Tylenol Tab) 650 mg Q4H PRN PO 02/12/17 00:15 03/14/17 00:14 Ondansetron HCl (Zofran Inj) 4 mg Q6H PRN IV 02/12/17 00:15 03/14/17 00:14 Nitroglycerin (Nitrostat Tab) 0.4 mg UD PRN SL 02/12/17 00:45 03/14/17 00:44 Morphine Sulfate 2 mg 2 mg Q30M PRN IV 02/12/17 00:45 02/26/17 00:44 02/13/17 08:06 2 MG Methylprednisolone Sodium Succinate/ Syringe (Solu-Medrol IV/ Syringe) 0.96 ml @ 1.5 mls/min Q12H IV 02/12/17 10:00 03/14/17 09:59 02/13/17 08:02 1.5 MLS/MIN Levalbuterol (Xopenex 0.31MG/ 3ML Neb) 0.31 mg Q6R INH 02/12/17 03:00 03/14/17 02:59 02/13/17 07:12 0.31 MG Aspirin (Ecotrin Tab) 81 mg DAILY PO 02/12/17 09:00 03/14/17 08:59 02/13/17 08:02 81 MG Cholecalciferol (Vitamin D Tab) 1,000 inter.unit DAILY PO 02/12/17 09:00 03/14/17 08:59 02/13/17 08:03 1,000 INTER.UNIT Meloxicam (Mobic Tab) 7.5 mg BID PO 02/12/17 09:00 03/14/17 08:59 02/13/17 08:02 7.5 MG Multivitamins/ Minerals (Multivitamin W/ Minerals Tab) 1 tab DAILY PO 02/12/17 09:00 03/14/17 08:59 02/13/17 08:02 1 TAB Oxycodone/ Acetaminophen (Percocet 10-325MG Tab) 1 tab QID PRN PO 02/12/17 02:21 02/26/17 02:20 02/13/17 05:42 1 TAB Simvastatin (Zocor Tab) 10 mg QPM PO 02/12/17 21:00 03/14/17 20:59 02/12/17 21:38 10 MG Ioversol 100 ml 100 ml UD PRN IV 02/12/17 01:00 02/16/17 00:59 Sodium Chloride 1,000 ml @ 80 mls/hr [id number] IV 02/12/17 01:00 02/13/17 14:29 02/13/17 04:15 80 MLS/HR Azithromycin 500 mg/Dextrose 255 ml @ 125 mls/hr Q24H IV 02/12/17 04:00 02/19/17 03:59 02/13/17 04:15 125 MLS/HR Piperacillin Sod/ Tazobactam Sod/ Dextrose (Zosyn Iv/D5 100ml) 115 ml @ 28.75 mls/ hr Q8H IV 02/12/17 08:00 02/19/17 07:59 02/13/17 08:01 28.75 MLS/HR Piperacillin Sod/ Tazobactam Sod (Consult) 1 ea UD PRN N/A 02/12/17 08:30 03/14/17 08:29 Nicotine (Nicoderm Cq 21MG Patch) 1 patch QAM TD 02/13/17 09:00 03/15/17 08:59 02/13/17 08:05 1 PATCH Miscellaneous (Remove Nicoderm Patch) 1 ea HS N/A 02/12/17 21:00 03/14/17 20:59 Lorazepam (Ativan Tab) 0.5 mg BID PRN PO 02/12/17 21:00 03/14/17 20:59 02/12/17 21:38 0.5 MG Guaifenesin (Mucinex Contr Rel Tab) 600 mg Q12 PO 02/12/17 21:00 03/14/17 20:59 02/13/17 08:03 600 MG Budesonide/ Formoterol Fumarate (Symbicort 80/ 4.5 Inh) 2 puffs BID INH 02/13/17 21:00 03/15/17 20:59 Objective Vital Signs Date Time Temp Pulse Resp B/P Pulse Ox O2 Delivery O2 Flow Rate FiO2 02/13/17 08:00 36.3 103 18 140/60 95 Nasal Cannula 2.5 02/13/17 07:29 85 18 99 Nasal Cannula 2.0 02/13/17 04:17 36.6 87 20 147/73 96 Nasal Cannula 3.0 02/13/17 04:00 Nasal Cannula 3.0 02/13/17 01:50 83 18 96 Nasal Cannula 2.0 02/13/17 00:00 Nasal Cannula 3.0 02/13/17 00:00 36.5 79 16 152/66 94 Nasal Cannula 2.0 02/12/17 20:35 36.6 82 24 164/77 95 Room Air 02/12/17 20:00 Nasal Cannula 3.0 02/12/17 19:22 82 18 93 Room Air 02/12/17 16:02 36.4 75 18 159/48 91 Room Air 02/12/17 15:15 Nasal Cannula 3.0 02/12/17 14:39 74 18 97 Room Air 02/12/17 11:32 36.6 92 22 163/59 96 Nasal Cannula 2.0 02/12/17 11:30 Nasal Cannula 3.0 Physical Exam General Appearance: WD/WN, no apparent distress Eyes: normal inspection ENT: hearing grossly normal Neck: supple Respiratory/Chest: no respiratory distress, + wheezing (diffusely) Cardiovascular: regular rate, rhythm Abdomen: normal bowel sounds, non tender, soft Extremities: no pedal edema Neurologic/Psychiatric: alert, normal mood/affect, oriented x 3 Skin: normal color Laboratory Results 02/13/17 06:03 Red Blood Count 3.69, Mean Corpuscular Volume 75.3, Mean Corpuscular Hemoglobin 23.8, Mean Corpuscular Hemoglobin Concent 31.7, Mean Platelet Volume 7.6, Neutrophils (%) (Auto) 93.4, Lymphocytes (%) (Auto) 4.0, Monocytes (%) (Auto) 2.3, Eosinophils (%) (Auto) 0.0, Basophils (%) (Auto) 0.0, Neutrophils # (Auto) 19.43, Lymphocytes # (Auto) 0.84, Monocytes # (Auto) 0.47, Eosinophils # (Auto) 0.00, Basophils # (Auto) 0.01 02/13/17 06:03 Test 02/13/17 06:03 White Blood Count 20.81 K/uL (4.8-10.8) Red Blood Count 3.69 M/uL (4.2-5.4) Hemoglobin 8.8 g/dL (12.0-16.0) Hematocrit 27.8 % (37-47) Mean Corpuscular Volume 75.3 fL (80-100) Mean Corpuscular Hemoglobin 23.8 pg (25-34) Mean Corpuscular Hemoglobin Concent 31.7 g/dl (32-36) Platelet Count 727 K/uL (130-400) Mean Platelet Volume 7.6 fL (7.4-10.4) Neutrophils (%) (Auto) 93.4 % Lymphocytes (%) (Auto) 4.0 % Monocytes (%) (Auto) 2.3 % Eosinophils (%) (Auto) 0.0 % Basophils (%) (Auto) 0.0 % Neutrophils # (Auto) 19.43 K/uL (1.4-6.5) Lymphocytes # (Auto) 0.84 K/uL (1.2-3.4) Monocytes # (Auto) 0.47 K/uL (0.11-0.59) Eosinophils # (Auto) 0.00 K/uL (0-0.5) Basophils # (Auto) 0.01 K/uL (0-0.2) RDW Standard Deviation 48.1 fL (36.4-46.3) RDW Coefficient of Variation 17.3 % (11.5-14.5) Immature Granulocyte % (Auto) 0.3 % Immature Granulocyte # (Auto) 0.06 K/uL (0.00-0.02) Red Blood Cell Morphology Unremarkable Prothrombin Time 11.4 SECONDS (9.0-12.0) Prothromb Time International Ratio 1.1 (0.9-1.1) Anion Gap 5.0 mmol/L (3-11) Est Creatinine Clear Calc Drug Dose 34.2 ml/min Estimated GFR () 58.9 Estimated GFR (Non- 50.8 BUN/Creatinine Ratio 19.8 (10-20) Calcium Level 10.0 mg/dl (8.5-10.1) Assessment and Plan 71-year-old female with past medical history of metastatic lung cancer , severe COPD admitted with respiratory distress Acute hypoxic respiratory failure secondary to metastatic lung cancer: - Continue O2 per protocol -Continue azithromycin, Zosyn -Continue Solu-Medrol , Xopenex, Dulera( off formulary) - Venous Dopplers negative - CT surgery consult- scheduled for CT guided biopsy today - smoking cessation counseling, NicoDerm patch Hyponatremia: - Continue NSS - Monitor Hyperlipidemia : -Continue statin Anxiety: Continue Ativan DVT prophylaxis SCDs DO NOT RESUSCITATE Dispo: Monitor in tele. CT guided biopsy today History Resident Physician Supervision Note: I was present with Dr. Cuevas during the history and exam. I discussed the case with the resident and agree with the findings and plan as documented in the note. Any exceptions or clarifications are listed here. Pt seen and examined at bedside. Cough and shortness of breath marginally improved from previous. Nervous about biopsy today. Reports no fever, nausea, paresthesias, abd pain, CP, palpitations. General Appearance: WD/WN, no apparent distress Respiratory: chest non-tender, no respiratory distress, decreased breath sounds (decreased throughout), wheezing (mild diffuse wheeze) Cardiovascular: normal peripheral pulses, regular rate, rhythm, no edema, no murmur Assessment/Plan 71 y/o female h/o metastatic cancer w/ likely lung primary w/ acute on chronic hypoxic respiratory failure AHRF - acute on chronic COPD v. PNA v. sequelae of metaplasia - neg venous doppler - CT surgery and oncology consulted, input appreciated - biopsy planned for today - continue solu-medrol, azithro and zosyn - continue xopenex (HFA 2/2 nausea), replacement for Dulera from formulary - wean O2 as tolerated Hyponatremia - likely 2/2 paraneoplastic v. PNA v. other underlying disease - Stable at 132 - trend BMP, gentle hydration Bigeminy - telemetry monitoring Leukocytosis and elevated platelets - downtrending, likely leukemoid, repeat CBC in AM Emphysema - as above HLD - continue statin Anxiety - ativan PRN DNR Resident Tracking Resident Involvement: Resident Care Provided Care Provided: Adult Hospital Medicine
[2017-02-13] MEDS: PIPERACILL/TAZOBAC IV 3.375 GM in DEXTROSE 5% 100ML IV SCH ×2 (08:01→18:19)
[2017-02-13] MEDS: CEROVITE ADV FORMULA TAB PO SCH (08:02)
[2017-02-13] MEDS: METHYLPREDNISOLONE IV 60 MG in SYRINGE 0 ML IV SCH ×2 (08:02→21:22)
[2017-02-13] MEDS: MELOXICAM 7.5 MG TAB PO SCH ×2 (08:02→21:22)
[2017-02-13] MEDS: ASPIRIN 81 MG ECTAB PO SCH (08:02)
[2017-02-13] MEDS: CHOLECALCIFEROL 1000 INTER.UNIT TAB PO SCH (08:03)
[2017-02-13] MEDS: GUAIFENESIN 600 MG TABCR PO SCH ×2 (08:03→21:22)
[2017-02-13] MEDS: NICOTINE 21 MG/24 HR TDSY TD SCH (08:05)
[2017-02-13] MEDS: MoRPHine SULFATE 2 MG/ML CARP IV PRN ×3 (08:06→21:25)
--- NOTE | 2017-02-13 08:25 | Radiation Oncology Consult ---
Radiation Oncology Consult Date / Reason February 13, 2017. Physicians Radiation Oncologist: Dr. Daniella Willams Surgeon: Dr. Jeronimo Other Providers: Medical Oncology - Dr. Ariza, Dr. Stewart Diagnosis (1) Mass of lung (2) Renal mass History of Present Illness I am seeing Ms. Jain in consultation at the request of Dr. David Stewart. ECOG PS: 3 Ms. Jain is a 71-year-old female who recently was admitted to the hospital for exertional dyspnea and weight loss. Previously, the patient was worked up for a right lower lobe mass and did have a CT-guided biopsy in August 2013 that only revealed rare atypical squamous cells but no evidence of carcinoma. The patient did have a CT of the thorax on 02/17/2014 which did show significantly enlargement of the right lower lobe mass which now measured 4.5 cm. More recently, the patient did have a CT of the thorax on 10/19/2016 which revealed: "IMPRESSION: 1. Significant increase in size in the 11 cm necrotic mass which occupies the majority of the right lower lobe and obstruction of right lower lobe bronchi. 2. Interval development of a spiculated 2.1 x 1.2 cm nodule within the left lower lobe and a 5 mm nodule within the lingula. This could represent metachronous primary bronchogenic malignancy versus metastatic disease. 3. A 4 cm mass within the upper pole of the left kidney. This likely represents a renal cell carcinoma. 4. Small nodular densities and interlobular septal thickening within the base of the right lower lobe which favors post obstructive pneumonitis. However, metastatic disease could also have a similar appearance. 6. Emphysema. 7. Mild cortical/periosteal thickening within the right posterior eighth and ninth ribs adjacent to the large lower lobe mass. However, there is no associated bony destruction." The patient did have multiple episodes of lost to follow-up and eventually was saw her new primary care physician, Dr. Cisneros, who urgently referred the patient to medical oncology, Dr. Ariza. Dr. Ariza recommended a PET CT scan and biopsy of the mass. The PET/CT was completed on 02/05/2017 which revealed: "IMPRESSION: 1. Large right hemithoracic necrotic mass showing hilar and mediastinal extension. 2. This shows a considerable increase in metabolic activity characteristics and is consistent with neoplasm. 3. Left hemithoracic nodules shown a moderate increase in metabolic activity consistent with metastatic deposits. 4. Soft tissue mass in the pancreatic tail showing intense post contrast activity. This may be a primary or secondary neoplastic process." She did have a CT thorax completed on 02/05/2017 which revealed: "IMPRESSION: 1. Right lower lobe pulmonary mass measuring in excess of 11 cm with extension to the mediastinum, and progressive narrowing of the right bronchus intermedius 2. Stable 2 cm spiculated left lower lobe pulmonary nodule. Interval development of a 1 cm irregularly marginated second left lower lobe pulmonary nodule. Stable 4 mm pulmonary nodule within the lingula 3. T9 compression fracture with erosion of the lateral cortex of the T9 vertebral body. Direct neoplastic extension into the vertebral body is felt likely 4. Moderate to severe emphysema 5. Interval development of a right pleural effusion 6. Destructive posterior T8 rib lesion , viewed as highly suspicious for metastatic disease." On this admission, the patient does admit to significant weight loss and exertional dyspnea however denies hemoptysis. The patient has other significant complaints. Past History Past Medical/Surgical History: Anxiety, COPD Social History Smoking Status: Current Every Day Smoker (smoking 6 cig/ day, down from 2 PPD x 60 years) Hx Tobacco Use In Past Year?: Yes Estimated Cigarettes Per Day: 7 Do You Dip or Chew Tobacco: No Hx Alcohol Use: No Hx Substance Use : No Allergies Uncoded Allergies: anesthesia gas (Allergy, Unknown, sick, 03/17/16) Home Medications Scheduled Aspirin (Aspirin Ec), 81 MG PO DAILY Cholecalciferol (Vitamin D), 1,000 UNIT PO DAILY Ipratropium-Albuterol (Duoneb), 1 TREATMENT INH QID Meloxicam (Mobic), 1 TAB PO BID Mometasone Furoate-Formoterol (Dulera 200/5 Mcg), 2 PUFFS INH BID Multiple Vitamins W/ Minerals (Multivitamin Adults 50+), 1 TAB PO DAILY Oxycodone/Acetaminophen 10MG/325MG (Percocet 10MG/325MG), 1 TAB PO QID Simvastatin (Zocor), 10 MG PO QPM Scheduled PRN Lorazepam (Lorazepam), 0.5 MG PO QD PRN for ANXIETY Review of Systems Ear/Hearing: Ear Side: Bilateral Hearing Ability: Normal Hearing Aid: None Edema: Present?: Yes Location Body Site Modifier: Bilateral Type: Pitting Degree: 1+ Pain Management Pain Duration: chronic Side: Bilateral Patient Preferred Pain Scale: 0 - 10 Initial Pain Intensity: 8.0 Physical Exam Height: 5 (Feet) 0.00 (Inches) 152.4 (Centimeters) 1.5240 (Meters) Weight: 104 (Pounds) 11.5 (Ounces) 47.500 (Kilograms) 50923.000 (Grams) Date Time Temp Pulse Resp B/P Pulse Ox O2 Delivery O2 Flow Rate FiO2 02/13/17 07:29 85 18 99 Nasal Cannula 2.0 02/13/17 04:17 36.6 87 20 147/73 96 Nasal Cannula 3.0 02/13/17 04:00 Nasal Cannula 3.0 02/13/17 01:50 83 18 96 Nasal Cannula 2.0 02/13/17 00:00 Nasal Cannula 3.0 02/13/17 00:00 36.5 79 16 152/66 94 Nasal Cannula 2.0 02/12/17 20:35 36.6 82 24 164/77 95 Room Air 02/12/17 20:00 Nasal Cannula 3.0 02/12/17 19:22 82 18 93 Room Air 02/12/17 16:02 36.4 75 18 159/48 91 Room Air 02/12/17 15:15 Nasal Cannula 3.0 02/12/17 14:39 74 18 97 Room Air 02/12/17 11:32 36.6 92 22 163/59 96 Nasal Cannula 2.0 02/12/17 11:30 Nasal Cannula 3.0 General Appearance: + mild distress, + cachetic Head: normocephalic, atraumatic Eyes: normal inspection ENT: normal ENT inspection Neck: supple, no adenopathy Respiratory/Chest: + respiratory distress, + decreased breath sounds, + crackles, + rales Cardiovascular: regular rate, rhythm, no edema, no gallop, no JVD, no murmur Abdomen/GI: normal bowel sounds, non tender, soft, no organomegaly, no pulsatile mass Back: normal inspection, no CVA tenderness Extremities: normal inspection Neurologic/Psych: clinical research spec II-XII nml as tested, alert, oriented x 3 Laboratory Labortaory Results: were reviewed Pathology Pathology results: were reviewed Imaging Imaging studies: were reviewed Assessment & Recommendations Ms. Jain is a 71-year-old female who presents with probable locally advanced lung cancer involving the right lower lobe and potentially the left lung. The patient was admitted to the hospital due to significant exertional dyspnea. The patient has been evaluated by medical oncology and thoracic surgery. The general recommendations the patient is to proceed with a CT-guided biopsy of the right lower lobe mass to obtain tissue diagnosis and then proceed with final recommendations regarding treatment. Ultimately, the patient will probably require chemotherapy and potentially palliative radiation therapy. We have been asked to evaluate the patient regarding radiation therapy. At this point, I recommended that the primary team proceed with obtaining a tissue diagnosis. I will plan to speak with the medical oncologist and thoracic surgeon regarding treatment options. If the patient is not a surgical candidate, the patient should be considered for palliative radiation therapy given the large size of the tumor or chemotherapy. Please contact was any further questions. We will continue to follow the patient's progress during her hospital course. We have explained the indications, alternatives, benefits, risks and side effects of radiation therapy to the lung. We have explained the most common side effects with include but are not limited to skin erythema, skin break down , pulmonary fibrosis, adhesion development, radiation pneumonitis, rib fracture , heart failure and heart disease, esophagitis, development of fistula, fatigue and development of secondary malignancy. We have explained the CT simulation process and treatment planning. We explained what to expect before, during and after treatment on a regular basis. The patient understands and would be willing to consent to treatment if necessary. The patient had multiple questions which were answered to their full satisfaction. Thank you for allowing us to participate in the care of this patient. This chart was completed in part utilizing [employer] Speech Voice Recognition software. Attempts were made to minimize the grammatical errors, random word insertions, pronoun errors and incomplete sentences. Any formal questions or concerns about the content, text or information contained within the body of this dictation should be directly addressed to the provider for clarification. Daniella Willams MD Department of Radiation Oncology [facility] Total Time In Consultation I spent 30 minutes examining and counseling the patient. I spent 15 minutes completing this note. Copy To David Stewart D.O.; Griffin Ariza D.O.; Ki Jeronimo MD
--- NOTE | 2017-02-13 11:05 | SURGERY PROGRESS NOTE ---
DATE: 02/13/2017 DATE: 02/13/2017. Ms. Jain is seen today. She is scheduled for a biopsy of her right lower lobe mass today. I think this is appropriate. I am concerned about her left lower lobe nodule. In fact she has 2 with a smaller nodule. I am also concerned about the pancreatic tail lesion. We will hopefully get a biopsy with the CT-guided biopsy of her right lower lobe today and we may want to end up doing a navigational bronchoscopy anyway as scheduled to evaluate her left lower lobe. We will wait and see what this shows.
[2017-02-13] MEDS: LORAZEPAM 0.5 MG TAB PO PRN ×2 (12:28→21:35)
--- NOTE | 2017-02-13 14:02 | Pharmacy Progress Note ---
Glycemic Control: Initial Note Date of Service February 13, 2017. Scope Glycemic Pharmacist to provide recommendations to improve glycemic control (all ICU patients are screened for hyperglycemia and treatment recommendations are provided per protocol). Pt identified with hyperglycemia (BSG above 180) while admitted to [facility] ([facility]). Subjective The patient is a 71 year old female admitted on February 12, 2017 at 00:40 for respiratory distress, COPD exacerbation. Patient's past medical history IS NOT significant for diabetes mellitus. Objective Height (Feet): 5 Height (Inches): 0.00 Weight (Kilograms): 47.500 Accuchecks BSG (last 24hrs): Test 02/13/17 06:03 Random Glucose 173 mg/dl (70-99) Laboratory Data (last 24hrs) Test 02/13/17 06:03 Anion Gap 5.0 mmol/L BUN/Creatinine Ratio 19.8 Blood Urea Nitrogen 22 mg/dl Creatinine 1.10 mg/dl Potassium Level 4.3 mmol/L Sodium Level 132 mmol/L White Blood Count 20.81 K/uL Red Blood Count 3.69 M/uL Hemoglobin 8.8 g/dL Hematocrit 27.8 % Mean Corpuscular Volume 75.3 fL Mean Corpuscular Hemoglobin 23.8 pg Mean Corpuscular Hemoglobin Concent 31.7 g/dl Platelet Count 727 K/uL Mean Platelet Volume 7.6 fL Neutrophils (%) (Auto) 93.4 % Lymphocytes (%) (Auto) 4.0 % Monocytes (%) (Auto) 2.3 % Eosinophils (%) (Auto) 0.0 % Basophils (%) (Auto) 0.0 % Neutrophils # (Auto) 19.43 K/uL Lymphocytes # (Auto) 0.84 K/uL Monocytes # (Auto) 0.47 K/uL Eosinophils # (Auto) 0.00 K/uL Basophils # (Auto) 0.01 K/uL Recent Pertinent Medications Outpatient Anti-diabetic Regimen: * no prior hx of DM dx * A1c = ? Risk Factors for Insulin Resistance: * Steroids: Solu-Medrol 60mg IV Q 12 hours * Infection: COPD exacerbation; receiving Azithromycin + Zosyn IV * Pressors: n/a * IVF: n/a * Recent Surgery: n/a * Diet: Ordered AHA diet * Mechanical Ventilation: n/a Assessment & Plan ASSESSMENT: * No prior dx of DM however fasting glucose has been elevated last 2 days (221 yesterday 173 today) - likely experiencing steroid-induced hyperglycemia. I suspect post-prandial BSGs are likely significantly elevated throughout the day * No recent A1c result ---> added to tomorrow's labs per 1east/2east glycemic control protocol * Will add BSG checks x 48 hours per 1east/2east glycemic control protocol * Would recommend a sliding scale at this time which can be discontinued if not used over the next 48 hrs RECOMMEND: * No basal insulin at this time, however would add tomorrow AM if fasting BSGs elevated and steroid dose unchanged * BSGs ACHS and coverage with Novolog per the parameters below: * Correction factor 35 mg/dl/unit * Carb ratio 1 unit per 15 grams CHO consumed * Goal range Low 120 mg/dL - High 160 mg/dL Pharmacy will continue to provide recommendations in EMR while patient admitted to /2E. Physicians may request pharmacy to continue to follow patient when transferred out of the ICU and/or consult pharmacy to write glycemic control orders * Please note that the plan above was derived based on current level of insulin resistance and hospital stress. These recommendations are appropriate for inpatient admission only. Plan of care upon discharge will need to be reassessed to avoid potential outpatient hypo/hyperglycemia. Thank you.
--- NOTE | 2017-02-13 14:54 | DIAGNOSTIC IMAGING REPORT ---
CT ANGIOGRAPHY OF THE CHEST, PULMONARY EMBOLUS PROTOCOL CLINICAL HISTORY: Hypoxia. COPD. Lung mass. COMPARISON STUDY: Chest CT February 05, 2017 and PET/CT February 05, 2017. TECHNIQUE: Following IV administration of 94 mL of Optiray-320, helical axial images of the chest were obtained utilizing the pulmonary embolus protocol. Maximal intensity projections and sagittal and coronal reformats were viewed on an independent 3D workstation. IV contrast was administered without complication. CT DOSE: 324.84 mGycm FINDINGS: No pulmonary emboli are identified. There is no evidence of thoracic aortic dissection. The heart is mildly enlarged. There is no pericardial effusion. A small right pleural effusion is noted. A large right lower lobe mass which measures approximately 14 x 11.6 x 10.9 cm is again noted. This mass narrows the right mainstem bronchus and severely narrows the right bronchus intermedius and multiple right middle and lower lobe segmental branches. This mass erodes into the right lateral aspect of the T9 vertebral body with associated moderate T9 pathologic fracture. The mass erodes the right eighth rib. Severe emphysema is noted. There is no pneumothorax. Note is again made of a 1.9 x 1.2 cm spiculated left lower lobe nodule and an additional 7 mm left lower lobe nodule shown image 62. A mass within the upper pole of the left kidney is partially imaged on this exam and measures approximately 4.8 cm. IMPRESSION: 1. No pulmonary emboli identified. 2. Redemonstration of the large right lower lobe mass which is consistent with malignancy and likely reflects a primary bronchogenic carcinoma. Associated occlusion of multiple airways, as described above as well as erosion into the T9 vertebral body with an associated pathologic fracture and erosion of the posterior right eighth rib. 3. 1.9 cm spiculated left lower lobe nodule highly suggestive of a lung malignancy and an additional indeterminate 7 mm left lower lobe nodule. 4. Severe emphysema. 5. Small right pleural effusion. Electronically signed by: Eris Veliz M.D. 02/13/2017 2:52 PM Dictated Date/Time: 02/13/2017 2:40 PM
--- NOTE | 2017-02-13 15:04 | DIAGNOSTIC IMAGING REPORT ---
CT GUIDED FINE NEEDLE ASPIRATION OF RIGHT LUNG MASS CT DOSE: 681.09 mGycm CLINICAL HISTORY: Right lung mass. COMPARISON STUDY: Chest CT and PET/CT February 05, 2017. PROCEDURE: The procedure, risks and benefits were discussed with the patient including the risk of pneumothorax, bleeding and infection. The patient agreed to the procedure and informed written consent was obtained. The procedure was performed by Dr. Veliz following a timeout. The patient was placed prone on the CT table. Axial unenhanced images through the chest were obtained and again demonstrated the large right lower lobe mass. The periphery of this mass was targeted for abscess. Skin was prepped and draped in sterile fashion and local anesthesia was achieved with 1% lidocaine. Under intermittent CT guidance, 3 22-gauge fine needle aspirations were performed. Malignant cells were noted on preliminary pathology and no further sampling was requested. The samples were deemed preliminarily adequate. The patient tolerated the procedure well and no immediate competitions were evident. Post procedure CT demonstrated no pneumothorax. IMPRESSION: CT-guided fine needle aspiration of right lower lobe mass. Electronically signed by: Eris Veliz M.D. 02/13/2017 3:02 PM Dictated Date/Time: 02/13/2017 3:00 PM
--- NOTE | 2017-02-13 15:48 | DIAGNOSTIC IMAGING REPORT ---
CHEST ONE VIEW PORTABLE CLINICAL HISTORY: s/p right lung mass biopsy post biopsy COMPARISON STUDY: 02/11/2017 FINDINGS: No evidence pneumothorax status post biopsy. Right pleural effusion. Enlargement right hilum. Nodularity left mid and lower lung unchanged. IMPRESSION: No evidence of pneumothorax post biopsy. Consolidative masslike change right base, right effusion, and left basilar nodularity considered stable Electronically signed by: Mathew Santos M.D. 02/13/2017 3:47 PM Dictated Date/Time: 02/13/2017 3:46 PM
--- NOTE | 2017-02-13 16:37 | Hematology/Oncology Prog Note ---
Hematology/Onc Progress Note Date of Service February 13, 2017. Diagnoses Probable lung carcinoma Medications Medications Administered Medications (Trade) Dose Ordered Sig/Channing Route Start Time Stop Time Status Last Admin Dose Admin Methylprednisolone Sodium Succinate (Solu-Medrol IV) 125 mg NOW STAT IV 02/11/17 21:22 02/11/17 21:23 DC 02/11/17 21:37 125 MG Albuterol/ Ipratropium (Duoneb) 12 ml ONE ONCE INH 02/11/17 21:30 02/11/17 21:31 DC 02/11/17 21:55 12 ML Morphine Sulfate 2 mg 2 mg Q30M PRN IV 02/12/17 00:45 02/26/17 00:44 02/13/17 08:06 2 MG Methylprednisolone Sodium Succinate/ Syringe (Solu-Medrol IV/ Syringe) 0.96 ml @ 1.5 mls/min Q12H IV 02/12/17 10:00 03/14/17 09:59 02/13/17 08:02 1.5 MLS/MIN Levalbuterol (Xopenex 0.31MG/ 3ML Neb) 0.31 mg Q6R INH 02/12/17 03:00 03/14/17 02:59 02/13/17 07:12 0.31 MG Aspirin (Ecotrin Tab) 81 mg DAILY PO 02/12/17 09:00 03/14/17 08:59 02/13/17 08:02 81 MG Cholecalciferol (Vitamin D Tab) 1,000 inter.unit DAILY PO 02/12/17 09:00 03/14/17 08:59 02/13/17 08:03 1,000 INTER.UNIT Lorazepam (Ativan Tab) 0.5 mg DAILY PRN PO 02/12/17 01:00 02/12/17 20:05 DC 02/12/17 11:13 0.5 MG Meloxicam (Mobic Tab) 7.5 mg BID PO 02/12/17 09:00 03/14/17 08:59 02/13/17 08:02 7.5 MG Multivitamins/ Minerals (Multivitamin W/ Minerals Tab) 1 tab DAILY PO 02/12/17 09:00 03/14/17 08:59 02/13/17 08:02 1 TAB Oxycodone/ Acetaminophen (Percocet 10-325MG Tab) 1 tab QID PRN PO 02/12/17 02:21 02/26/17 02:20 02/13/17 05:42 1 TAB Simvastatin 10 mg 10 mg QPM PO 02/12/17 21:00 03/14/17 20:59 02/12/17 21:38 10 MG Sodium Chloride (Nss 1000ml) 1,000 ml @ 80 mls/hr [id number] IV 02/12/17 01:00 02/13/17 14:29 DC 02/13/17 04:15 80 MLS/HR Morphine Sulfate 2 mg 2 mg STK-MED ONCE .ROUTE 02/12/17 01:55 02/12/17 01:56 DC 02/12/17 01:57 2 MG Piperacillin Sod/ Tazobactam Sod 3.375 gm/Dextrose 115 ml @ 200 mls/hr TODAY@0230 ONCE IV 02/12/17 02:30 02/12/17 03:04 DC 02/12/17 02:56 200 MLS/HR Azithromycin 500 mg/Dextrose 255 ml @ 125 mls/hr Q24H IV 02/12/17 04:00 02/19/17 03:59 02/13/17 04:15 125 MLS/HR Piperacillin Sod/ Tazobactam Sod/ Dextrose (Zosyn Iv/D5 100ml) 115 ml @ 28.75 mls/ hr Q8H IV 02/12/17 08:00 02/19/17 07:59 02/13/17 08:01 28.75 MLS/HR Nicotine (Nicoderm Cq 21MG Patch) 1 patch QAM TD 02/13/17 09:00 03/15/17 08:59 02/13/17 08:05 1 PATCH Lorazepam (Ativan Tab) 0.5 mg BID PRN PO 02/12/17 21:00 03/14/17 20:59 02/13/17 12:28 0.5 MG Guaifenesin (Mucinex Contr Rel Tab) 600 mg Q12 PO 02/12/17 21:00 03/14/17 20:59 02/13/17 08:03 600 MG Subjective She had a procedure today with a biopsy of the right lung lesion in radiology. She remained short of breath but otherwise for generally well Review of Systems: Constitutional: Negative for night sweats, or fever Eyes: Negative for event change of vision ENT: Negative for epistaxis, nasal discharge, sore throat, or deafness Cardiovascular: Negative for chest pain, palpitations, dizziness, diaphoresis Respiratory: Remains short of breath Gastrointestinal: Negative for diarrhea, hematemesis, melena, nausea, vomiting , or dyspepsia Integumentary (skin): Negative for rash or jaundice discoloration Genitourinary: Negative for urinary frequency, hematuria, or dysuria Neurological: Negative for weakness, seizure activity, headache, or dizziness Lymphatic/Hematologic: Negative for petechiae, bleeding or new adenopathy Musculoskeletal: Negative for new joint or back pain Allergic/Immunologic: Negative for unusual rash or pruritis. Vital Signs Vital Signs Past 12 Hours Date Time Temp Pulse Resp B/P Pulse Ox O2 Delivery O2 Flow Rate FiO2 02/13/17 11:17 36.7 80 20 133/67 98 2.5 02/13/17 08:30 Nasal Cannula 3.0 02/13/17 08:00 36.3 103 18 140/60 95 Nasal Cannula 2.5 02/13/17 07:29 85 18 99 Nasal Cannula 2.0 Physical Exam Constitutional: vitals are stable. Eyes: Eyes are KAUSHAL EOMI without conjuctival erythema or icterus. ENT: External examination was negative for masses. Neck: Negative for masses or palpable thyromegaly Respiratory: Lung sounds were generally clear but decreased bilaterally Cardiovascular: Heart was RRR without significant murmur, gallops aoe rubs Gastrointestinal: No palpable hepatic or splenomegaly. The abdomen was soft with normal bowel sounds. Lymphatic system: there was no palpable peripheral lymphadenopathy Musculoskeletal System: The musculoskeletal system seemed concordant with age. Skin: The skin was negative for jaundice. Neurologic exam: The exam was negative for any focal findings. Deep tendon reflexes were equal and symmetrical. Psychiatric exam: Was essentially negative with normal mood and effect. Extremities: Mild nontender edema as before: Laboratory Last 24 Hours Test 02/13/17 06:03 White Blood Count 20.81 K/uL Red Blood Count 3.69 M/uL Hemoglobin 8.8 g/dL Hematocrit 27.8 % Mean Corpuscular Volume 75.3 fL Mean Corpuscular Hemoglobin 23.8 pg Mean Corpuscular Hemoglobin Concent 31.7 g/dl Platelet Count 727 K/uL Mean Platelet Volume 7.6 fL Neutrophils (%) (Auto) 93.4 % Lymphocytes (%) (Auto) 4.0 % Monocytes (%) (Auto) 2.3 % Eosinophils (%) (Auto) 0.0 % Basophils (%) (Auto) 0.0 % Neutrophils # (Auto) 19.43 K/uL Lymphocytes # (Auto) 0.84 K/uL Monocytes # (Auto) 0.47 K/uL Eosinophils # (Auto) 0.00 K/uL Basophils # (Auto) 0.01 K/uL RDW Standard Deviation 48.1 fL RDW Coefficient of Variation 17.3 % Immature Granulocyte % (Auto) 0.3 % Immature Granulocyte # (Auto) 0.06 K/uL Red Blood Cell Morphology Unremarkable Prothrombin Time 11.4 SECONDS Prothromb Time International Ratio 1.1 Sodium Level 132 mmol/L Potassium Level 4.3 mmol/L Chloride Level 97 mmol/L Carbon Dioxide Level 30 mmol/L Anion Gap 5.0 mmol/L Blood Urea Nitrogen 22 mg/dl Creatinine 1.10 mg/dl Est Creatinine Clear Calc Drug Dose 34.2 ml/min Estimated GFR () 58.9 Estimated GFR (Non- 50.8 BUN/Creatinine Ratio 19.8 Random Glucose 173 mg/dl Calcium Level 10.0 mg/dl Assessment & Plan She appears clinically stable. I understand another biopsy of the left lung is planned for Sunday of next week. We will sign off for now as a service but will have her on the schedule see our physicians (Dr. Ariza) following that biopsy next week. Please don't hesitate to reconsult if necessary during this hospitalization.
[2017-02-13] MEDS: BUDESONIDE/FORMOTEROL FUMARATE 80/4.5 60 PUFFS/INHALER INH SCH (21:05)
[2017-02-13] MEDS: SIMVASTATIN 10 MG TAB PO SCH (21:22)
[2017-02-14] VITALS (8 sets, daily range): BP systolic 141–163; BP diastolic 56–89; PULSE 74–95; TEMP 36.6–37; O2SAT 91–98
[2017-02-14] MEDS: PIPERACILL/TAZOBAC IV 3.375 GM in DEXTROSE 5% 100ML IV SCH ×3 (00:32→15:49)
[2017-02-14] MEDS: AZITHROMYCIN IV 500 MG in DEXTROSE 5% 250ML 250 ML IV SCH (04:40)
[2017-02-14] MEDS: MoRPHine SULFATE 2 MG/ML CARP IV PRN ×4 (04:51→21:17)
[2017-02-14] MEDS: LEValbuterol HFA 15GM INHALER INH SCH ×5 (05:48→23:35)
[2017-02-14 06:03] LABS: HEMATOCRIT 26.2 % (37-47); IG% 0.5 %; LYMPH % 3.5 %; LYMPH ABS # 0.67 K/uL (1.2-3.4); MEAN CELL VOLUME 75.7 fL (80-100); MEAN CORPUSCULAR HEMOGLOBIN 24.6 pg (25-34); MEAN CORPUSCULAR HGB CONC 32.4 g/dl (32-36); MEAN PLATELET VOLUME 7.5 fL (7.4-10.4); MONO % 2.8 %; NEUT % 93.2 %; PLATELET COUNT 675 K/uL (130-400); RED BLOOD COUNT 3.46 M/uL (4.2-5.4); WHITE BLOOD COUNT 19.39 K/uL (4.8-10.8)
[2017-02-14 06:13] LABS: INR 1.1 (0.9-1.1); PROTHROMBIN TIME (PATIENT) 11.3 SECONDS (9.0-12.0)
[2017-02-14 06:26] LABS: ANISOCYTOSIS PRESENT; COMPLETE YES
[2017-02-14 06:29] LABS: ESTIMATED AVERAGE GLUCOSE 117 mg/dl; HA1C FLAG Normal (Normal)
[2017-02-14 06:43] LABS: BUN/CREATININE RATIO 24.4 (10-20); CALCIUM 9.9 mg/dl (8.5-10.1); CREATININE 1.1 mg/dl (0.60-1.20); POTASSIUM 4.4 mmol/L (3.5-5.1)
[2017-02-14] MEDS: OXYCODONE/ACETAMINOPHEN 10/325MG TAB PO PRN ×3 (07:14→20:21)
[2017-02-14] MEDS: CEROVITE ADV FORMULA TAB PO SCH (07:15)
[2017-02-14] MEDS: BUDESONIDE/FORMOTEROL FUMARATE 80/4.5 60 PUFFS/INHALER INH SCH ×2 (07:15→20:28)
[2017-02-14] MEDS: ASPIRIN 81 MG ECTAB PO SCH (07:15)
[2017-02-14] MEDS: GUAIFENESIN 600 MG TABCR PO SCH ×2 (07:16→20:31)
[2017-02-14] MEDS: MELOXICAM 7.5 MG TAB PO SCH ×2 (07:16→20:30)
[2017-02-14] MEDS: CHOLECALCIFEROL 1000 INTER.UNIT TAB PO SCH (07:16)
[2017-02-14] MEDS: NICOTINE 21 MG/24 HR TDSY TD SCH (07:17)
[2017-02-14] MEDS: METHYLPREDNISOLONE IV 60 MG in SYRINGE 0 ML IV SCH (09:58)
[2017-02-14] MEDS: LORAZEPAM 0.5 MG TAB PO PRN ×2 (11:43→20:28)
--- NOTE | 2017-02-14 13:52 | SURGERY PROGRESS NOTE ---
DATE: 02/14/2017 DATE: 02/14/2017. Ms. Binta Jain was seen today on 02/14/2017. She has been coughing. She still has pain in her back. The biopsy yesterday did show a carcinoma. The final pathology is not back yet. PET scan from a week ago shows that she had a large right necrotic mass as noted. I went ahead and sent her for a needle biopsy as she was in the hospital. Also, because the PET scan showed that there was metabolic activity here. In addition, she has a mass in the pancreatic tail which appears to be neoplastic. We will discuss this with the daughter, but at this point I think getting the final diagnosis will be very important. Her chest x-ray showed no evidence of pneumothorax yesterday.
--- NOTE | 2017-02-14 14:31 | Family Medicine Progress Note ---
Progress Note Date of Service February 14, 2017. Subjective Pt evaluation today including: conversation w/ patient, physical exam, chart review, lab review Pain: well controlled PO Intake: good Voiding: no voiding problems Underwent a CT-guided biopsy of her right lung mass yesterday which she tolerated well. Complains of some pain at the biopsy site and in the back which is chronic. Denies any chest pain, palpitations. States that her breathing is improved but continues to feel dyspneic on exertion. Constitutional: No chills, No fever Eyes: No worsening of vision ENT: No hearing loss Respiratory: + cough, + dyspnea on exertion, + sputum Cardiovascular: No chest pain Abdomen: No nausea, No pain Musculoskeletal: No joint pain Female : No dysuria Neurologic: No memory loss, No paralysis Psychiatric: No depression symptoms Medications Current Inpatient Medications Medications (Trade) Dose Ordered Sig/Channing Route Start Time Stop Time Status Last Admin Dose Admin Acetaminophen (Tylenol Tab) 650 mg Q4H PRN PO 02/12/17 00:15 03/14/17 00:14 Ondansetron HCl (Zofran Inj) 4 mg Q6H PRN IV 02/12/17 00:15 03/14/17 00:14 Nitroglycerin (Nitrostat Tab) 0.4 mg UD PRN SL 02/12/17 00:45 03/14/17 00:44 Morphine Sulfate 2 mg 2 mg Q30M PRN IV 02/12/17 00:45 02/26/17 00:44 02/14/17 04:51 2 MG Methylprednisolone Sodium Succinate/ Syringe (Solu-Medrol IV/ Syringe) 0.96 ml @ 1.5 mls/min Q12H IV 02/12/17 10:00 03/14/17 09:59 02/14/17 09:58 1.5 MLS/MIN Aspirin (Ecotrin Tab) 81 mg DAILY PO 02/12/17 09:00 03/14/17 08:59 02/14/17 07:15 81 MG Cholecalciferol (Vitamin D Tab) 1,000 inter.unit DAILY PO 02/12/17 09:00 03/14/17 08:59 02/14/17 07:16 1,000 INTER.UNIT Meloxicam (Mobic Tab) 7.5 mg BID PO 02/12/17 09:00 03/14/17 08:59 02/14/17 07:16 7.5 MG Multivitamins/ Minerals (Multivitamin W/ Minerals Tab) 1 tab DAILY PO 02/12/17 09:00 03/14/17 08:59 02/14/17 07:15 1 TAB Oxycodone/ Acetaminophen (Percocet 10-325MG Tab) 1 tab QID PRN PO 02/12/17 02:21 02/26/17 02:20 02/14/17 12:45 1 TAB Simvastatin (Zocor Tab) 10 mg QPM PO 02/12/17 21:00 03/14/17 20:59 02/13/17 21:22 10 MG Ioversol 100 ml 100 ml UD PRN IV 02/12/17 01:00 02/16/17 00:59 Piperacillin Sod/ Tazobactam Sod/ Dextrose (Zosyn Iv/D5 100ml) 115 ml @ 28.75 mls/ hr Q8H IV 02/12/17 08:00 02/19/17 07:59 02/14/17 07:19 28.75 MLS/HR Piperacillin Sod/ Tazobactam Sod (Consult) 1 ea UD PRN N/A 02/12/17 08:30 03/14/17 08:29 Nicotine (Nicoderm Cq 21MG Patch) 1 patch QAM TD 02/13/17 09:00 03/15/17 08:59 02/14/17 07:17 1 PATCH Miscellaneous (Remove Nicoderm Patch) 1 ea HS N/A 02/12/17 21:00 03/14/17 20:59 Lorazepam (Ativan Tab) 0.5 mg BID PRN PO 02/12/17 21:00 03/14/17 20:59 02/14/17 11:43 0.5 MG Guaifenesin (Mucinex Contr Rel Tab) 600 mg Q12 PO 02/12/17 21:00 03/14/17 20:59 02/14/17 07:16 600 MG Budesonide/ Formoterol Fumarate (Symbicort 80/ 4.5 Inh) 2 puffs BID INH 02/13/17 21:00 03/15/17 20:59 02/14/17 07:15 2 PUFFS Levalbuterol (Xopenex Hfa Inhaler) 2 puffs Q6 INH 02/14/17 00:00 03/16/17 00:00 02/14/17 11:42 2 PUFFS Azithromycin (Zithromax Tab) 500 mg QAM PO 02/15/17 09:00 02/19/17 08:59 Objective Vital Signs Date Time Temp Pulse Resp B/P Pulse Ox O2 Delivery O2 Flow Rate FiO2 02/14/17 12:00 Nasal Cannula 2.0 02/14/17 11:31 36.6 77 18 159/78 98 2.0 02/14/17 08:12 157/64 02/14/17 08:00 Nasal Cannula 2.0 02/14/17 07:43 36.7 86 18 163/58 93 2.0 02/14/17 04:06 36.6 95 16 154/89 97 02/14/17 04:02 Nasal Cannula 2.0 02/14/17 00:07 36.8 74 22 141/77 98 Nasal Cannula 2.0 02/14/17 00:00 Nasal Cannula 2.0 02/13/17 20:00 Nasal Cannula 3.0 02/13/17 19:10 36.5 85 21 147/69 93 Room Air 02/13/17 18:53 85 16 99 Nasal Cannula 2.0 02/13/17 18:16 36.6 86 22 160/70 97 Nasal Cannula 2.0 02/13/17 16:58 36.5 89 22 161/77 95 Nasal Cannula 2.0 02/13/17 16:00 Nasal Cannula 3.0 02/13/17 15:30 36.7 85 21 152/65 97 2.5 02/13/17 15:15 36.6 86 21 150/64 97 2.5 02/13/17 15:00 36.7 85 22 142/65 98 2.5 Physical Exam General Appearance: WD/WN, no apparent distress Eyes: normal inspection ENT: normal ENT inspection, hearing grossly normal Neck: supple Respiratory/Chest: chest non-tender, lungs clear, + wheezing Cardiovascular: regular rate, rhythm, no edema Abdomen: normal bowel sounds, non tender, soft Extremities: normal range of motion, non-tender Neurologic/Psychiatric: alert, normal mood/affect, oriented x 3 Laboratory Results 02/14/17 05:30 Red Blood Count 3.46, Mean Corpuscular Volume 75.7, Mean Corpuscular Hemoglobin 24.6, Mean Corpuscular Hemoglobin Concent 32.4, Mean Platelet Volume 7.5, Neutrophils (%) (Auto) 93.2, Lymphocytes (%) (Auto) 3.5, Monocytes (%) (Auto) 2.8, Eosinophils (%) (Auto) 0.0, Basophils (%) (Auto) 0.0, Neutrophils # (Auto) 18.08, Lymphocytes # (Auto) 0.67, Monocytes # (Auto) 0.55, Eosinophils # (Auto) 0.00, Basophils # (Auto) 0.00 02/14/17 05:30 Test 02/14/17 05:30 02/14/17 11:24 White Blood Count 19.39 K/uL (4.8-10.8) Red Blood Count 3.46 M/uL (4.2-5.4) Hemoglobin 8.5 g/dL (12.0-16.0) Hematocrit 26.2 % (37-47) Mean Corpuscular Volume 75.7 fL (80-100) Mean Corpuscular Hemoglobin 24.6 pg (25-34) Mean Corpuscular Hemoglobin Concent 32.4 g/dl (32-36) Platelet Count 675 K/uL (130-400) Mean Platelet Volume 7.5 fL (7.4-10.4) Neutrophils (%) (Auto) 93.2 % Lymphocytes (%) (Auto) 3.5 % Monocytes (%) (Auto) 2.8 % Eosinophils (%) (Auto) 0.0 % Basophils (%) (Auto) 0.0 % Neutrophils # (Auto) 18.08 K/uL (1.4-6.5) Lymphocytes # (Auto) 0.67 K/uL (1.2-3.4) Monocytes # (Auto) 0.55 K/uL (0.11-0.59) Eosinophils # (Auto) 0.00 K/uL (0-0.5) Basophils # (Auto) 0.00 K/uL (0-0.2) RDW Standard Deviation 47.9 fL (36.4-46.3) RDW Coefficient of Variation 17.4 % (11.5-14.5) Immature Granulocyte % (Auto) 0.5 % Immature Granulocyte # (Auto) 0.09 K/uL (0.00-0.02) Anisocytosis PRESENT Prothrombin Time 11.3 SECONDS (9.0-12.0) Prothromb Time International Ratio 1.1 (0.9-1.1) Anion Gap 9.0 mmol/L (3-11) Est Creatinine Clear Calc Drug Dose 34.2 ml/min Estimated GFR () 58.9 Estimated GFR (Non- 50.8 BUN/Creatinine Ratio 24.4 (10-20) Estimated Average Glucose 117 mg/dl Hemoglobin A1c 5.7 % (4.5-5.6) Calcium Level 9.9 mg/dl (8.5-10.1) Bedside Glucose 152 mg/dl (70-90) Assessment and Plan 71-year-old female with past medical history of metastatic lung cancer , severe COPD admitted with respiratory distress Acute hypoxic respiratory failure likely secondary to metastatic lung cancer: - Continue O2 per protocol -Switched to by mouth azithromycin -Solu-Medrol switched to oral prednisone . -Continue Xopenex, Dulera( off formulary) - Venous Dopplers negative - CT surgery consult-CT guided biopsy yesterday- pathology pending - smoking cessation counseling, NicoDerm patch Hyponatremia: Sodium today at 134 from 131 on admission - Continue NSS - Monitor Hyperlipidemia : -Continue statin Anxiety: Continue Ativan PT/OT DVT prophylaxis SCDs DO NOT RESUSCITATE Dispo: Monitor in tele. History Resident Physician Supervision Note: I was present with Dr. Cuevas during the history and exam. I discussed the case with the resident and agree with the findings and plan as documented in the note. Any exceptions or clarifications are listed here. Pt seen and examined at bedside. No acute events overnight. Pt feels breathing continues to improve and is approaching baseline. Minimal cough, comfortable off O2 at rest. Aching pain in the ribs is troublesome but improves with pain medication. Reports no fever, n/v, lightheadedness. Patient's two daughters and friend present in room today to discuss summary of care and future course. Topics discussed included - prior history of evaluation w/ review of chart and imaging results including recent PET and CT scans, recent biopsy findings, indications for therapy, patient preferences (no surgical intervention, no chemotherapy, no heroic measures, DNR/DNI) and subsequent course of care based on biopsy and further studies and follow up with CTS/Heme/Onc. General Appearance: WD/WN, no apparent distress Respiratory: no respiratory distress, decreased breath sounds (throughout, stable from previous), wheezing (mild diffuse wheeze), other (chest TTP over ribs but not at biopsy site) Cardiovascular: normal peripheral pulses, regular rate, rhythm, no edema, no murmur Gastrointestinal: normal bowel sounds, non tender, soft, no organomegaly Extremities: other (LE TTP mildly aching) Assessment/Plan 71 y/o female h/o metastatic cancer w/ likely lung primary w/ acute on chronic hypoxic respiratory failure Acute on chronic COPD exacerbation - transition to PO steroids and antibiotics - continue inhaler therapy - wean O2 as tolerated Metastatic lung cancer - CT surgery and oncology consulted, input appreciated - biopsy completed 02.13.17, will follow for path - for bronch bx Sunday of next wk - will intensify pain control until patient comfort 2/2 multiple bony lesions which correlate with pain Hyponatremia - likely 2/2 paraneoplastic v. PNA v. other underlying disease - improving Bigeminy - telemetry monitoring Leukocytosis and elevated platelets - improving Emphysema - as above HLD - continue statin Anxiety - ativan PRN DNR Over an hour was spent discussing the topics in detail with the patient and family and answering questions as detailed in the HPI. Resident Tracking Resident Involvement: Resident Care Provided Care Provided: Adult Hospital Medicine
[2017-02-14] MEDS ORDERED: MoRPHine SULFATE 2 MG/ML CARP IV STA (15:49)
[2017-02-14] MEDS: SIMVASTATIN 10 MG TAB PO SCH (20:31)
[2017-02-15] VITALS (9 sets, daily range): BP systolic 150–170; BP diastolic 67–80; PULSE 80–92; TEMP 36.5–36.8; O2SAT 91–98
[2017-02-15] MEDS: MoRPHine SULFATE 2 MG/ML CARP IV PRN ×4 (03:39→14:44)
[2017-02-15] MEDS: OXYCODONE/ACETAMINOPHEN 10/325MG TAB PO PRN ×3 (03:39→17:20)
[2017-02-15] MEDS: LEValbuterol HFA 15GM INHALER INH SCH ×3 (06:01→17:21)
[2017-02-15 06:12] LABS: HEMATOCRIT 26.3 % (37-47); MEAN CORPUSCULAR HGB CONC 31.6 g/dl (32-36); MEAN PLATELET VOLUME 7.5 fL (7.4-10.4); PLATELET COUNT 633 K/uL (130-400); RED BLOOD COUNT 3.46 M/uL (4.2-5.4); WHITE BLOOD COUNT 18.31 K/uL (4.8-10.8)
[2017-02-15 06:42] LABS: BUN/CREATININE RATIO 26.8 (10-20); CALCIUM 9.6 mg/dl (8.5-10.1); CREATININE 1.1 mg/dl (0.60-1.20); POTASSIUM 4.2 mmol/L (3.5-5.1)
[2017-02-15] MEDS: CEROVITE ADV FORMULA TAB PO SCH (07:38)
[2017-02-15] MEDS: CHOLECALCIFEROL 1000 INTER.UNIT TAB PO SCH (07:38)
[2017-02-15] MEDS: MELOXICAM 7.5 MG TAB PO SCH ×2 (07:38→21:01)
[2017-02-15] MEDS: GUAIFENESIN 600 MG TABCR PO SCH ×2 (07:38→21:01)
[2017-02-15] MEDS: AZITHROMYCIN 250 MG TAB PO SCH (07:38)
[2017-02-15] MEDS: NICOTINE 21 MG/24 HR TDSY TD SCH (07:39)
[2017-02-15] MEDS: ASPIRIN 81 MG ECTAB PO SCH (07:39)
[2017-02-15] MEDS: BUDESONIDE/FORMOTEROL FUMARATE 80/4.5 60 PUFFS/INHALER INH SCH ×2 (07:42→21:02)
--- NOTE | 2017-02-15 08:37 | Surgery Progress Note ---
Subjective Date of Service: February 15, 2017. Pt. notes intermittent cough and SOB. Objective Vitals Date Time Temp Pulse Resp B/P Pulse Ox O2 Delivery O2 Flow Rate FiO2 02/15/17 07:48 36.6 88 18 170/80 92 1.0 02/15/17 04:00 Nasal Cannula 2.0 02/15/17 04:00 36.7 83 18 161/71 91 Nasal Cannula 2.0 02/15/17 00:00 Nasal Cannula 2.0 02/14/17 23:59 37.0 89 17 147/56 91 Nasal Cannula 2.0 02/14/17 20:18 36.7 87 20 162/74 93 Room Air 02/14/17 20:00 Room Air 02/14/17 16:00 Room Air 02/14/17 15:52 36.8 76 16 146/71 92 Room Air 02/14/17 12:00 Nasal Cannula 2.0 02/14/17 11:31 36.6 77 18 159/78 98 2.0 Physical Exam General: No distress CV: + RRR Pulmonary: No accessory muscle use, No respiratory distress Neurologic: + alert & oriented x 3 Assessment & Plan 71 year old female with right lung mass -CT guided needle biopsy performed (02/13/17): -preliminary path concerning for squamous cell CA -no pneumothorax on post-procedure CXR -consideration for FOB and biopsy in future -oncology to see as outpt. with further recommendations once final path available
[2017-02-15] MEDS ORDERED: FAMOTIDINE 20 MG TAB PO ONE (11:30)
--- NOTE | 2017-02-15 11:30 | Family Medicine Progress Note ---
Progress Note Date of Service February 15, 2017. Subjective Pt evaluation today including: conversation w/ patient, physical exam Pain: comlains of pain along her right side and epigastric pain Voiding: no incontinence Complains of pain along her right side and epigastric area which is described as a burning sensation worsened with food. Continues to have difficulty breathing especially on exertion. Constitutional: No chills, No fever Eyes: No worsening of vision ENT: No hearing loss Respiratory: + cough, + dyspnea on exertion Cardiovascular: + chest pain (right sided ) Abdomen: + pain (epigastric) Female : No dysuria, No urinary frequency Neurologic: No memory loss Psychiatric: No depression symptoms Medications Current Inpatient Medications Medications (Trade) Dose Ordered Sig/Channing Route Start Time Stop Time Status Last Admin Dose Admin Acetaminophen (Tylenol Tab) 650 mg Q4H PRN PO 02/12/17 00:15 03/14/17 00:14 Ondansetron HCl (Zofran Inj) 4 mg Q6H PRN IV 02/12/17 00:15 03/14/17 00:14 Nitroglycerin (Nitrostat Tab) 0.4 mg UD PRN SL 02/12/17 00:45 03/14/17 00:44 Morphine Sulfate (MoRPHine SULFATE INJ) 2 mg Q30M PRN IV 02/12/17 00:45 02/26/17 00:44 02/15/17 08:29 2 MG Aspirin (Ecotrin Tab) 81 mg DAILY PO 02/12/17 09:00 03/14/17 08:59 02/15/17 07:39 81 MG Cholecalciferol (Vitamin D Tab) 1,000 inter.unit DAILY PO 02/12/17 09:00 03/14/17 08:59 02/15/17 07:38 1,000 INTER.UNIT Meloxicam (Mobic Tab) 7.5 mg BID PO 02/12/17 09:00 03/14/17 08:59 02/15/17 07:38 7.5 MG Multivitamins/ Minerals (Multivitamin W/ Minerals Tab) 1 tab DAILY PO 02/12/17 09:00 03/14/17 08:59 02/15/17 07:38 1 TAB Oxycodone/ Acetaminophen (Percocet 10-325MG Tab) 1 tab QID PRN PO 02/12/17 02:21 02/26/17 02:20 02/15/17 10:39 1 TAB Simvastatin (Zocor Tab) 10 mg QPM PO 02/12/17 21:00 03/14/17 20:59 02/14/17 20:31 10 MG Ioversol (Optiray 320) 100 ml UD PRN IV 02/12/17 01:00 02/16/17 00:59 Nicotine (Nicoderm Cq 21MG Patch) 1 patch QAM TD 02/13/17 09:00 03/15/17 08:59 02/15/17 07:39 1 PATCH Miscellaneous (Remove Nicoderm Patch) 1 ea HS N/A 02/12/17 21:00 03/14/17 20:59 02/14/17 20:28 1 EA Lorazepam (Ativan Tab) 0.5 mg BID PRN PO 02/12/17 21:00 03/14/17 20:59 02/14/17 20:28 0.5 MG Guaifenesin (Mucinex Contr Rel Tab) 600 mg Q12 PO 02/12/17 21:00 03/14/17 20:59 02/15/17 07:38 600 MG Budesonide/ Formoterol Fumarate (Symbicort 80/ 4.5 Inh) 2 puffs BID INH 02/13/17 21:00 03/15/17 20:59 02/15/17 07:42 2 PUFFS Levalbuterol (Xopenex Hfa Inhaler) 2 puffs Q6 INH 02/14/17 00:00 03/16/17 00:00 02/15/17 06:01 2 PUFFS Azithromycin (Zithromax Tab) 500 mg QAM PO 02/15/17 09:00 02/19/17 08:59 02/15/17 07:38 500 MG Objective Vital Signs Date Time Temp Pulse Resp B/P Pulse Ox O2 Delivery O2 Flow Rate FiO2 02/15/17 08:00 92 Nasal Cannula 2.0 02/15/17 07:48 36.6 88 18 170/80 92 1.0 02/15/17 04:00 Nasal Cannula 2.0 02/15/17 04:00 36.7 83 18 161/71 91 Nasal Cannula 2.0 02/15/17 00:00 Nasal Cannula 2.0 02/14/17 23:59 37.0 89 17 147/56 91 Nasal Cannula 2.0 02/14/17 20:18 36.7 87 20 162/74 93 Room Air 02/14/17 20:00 Room Air 02/14/17 16:00 Room Air 02/14/17 15:52 36.8 76 16 146/71 92 Room Air 02/14/17 12:00 Nasal Cannula 2.0 02/14/17 11:31 36.6 77 18 159/78 98 2.0 Physical Exam General Appearance: WD/WN, + mild distress Eyes: normal inspection ENT: normal ENT inspection, hearing grossly normal Neck: supple Respiratory/Chest: + decreased breath sounds, + wheezing Cardiovascular: regular rate, rhythm Abdomen: normal bowel sounds, non tender, soft Extremities: normal range of motion, non-tender Neurologic/Psychiatric: alert, normal mood/affect, oriented x 3 Laboratory Results 02/15/17 05:39 02/15/17 05:39 Test 02/15/17 05:39 Red Blood Count 3.46 M/uL (4.2-5.4) Mean Corpuscular Volume 76.0 fL (80-100) Mean Corpuscular Hemoglobin 24.0 pg (25-34) Mean Corpuscular Hemoglobin Concent 31.6 g/dl (32-36) RDW Standard Deviation 48.6 fL (36.4-46.3) RDW Coefficient of Variation 17.4 % (11.5-14.5) Mean Platelet Volume 7.5 fL (7.4-10.4) Anion Gap 6.0 mmol/L (3-11) Est Creatinine Clear Calc Drug Dose 34.2 ml/min Estimated GFR () 58.9 Estimated GFR (Non- 50.8 BUN/Creatinine Ratio 26.8 (10-20) Calcium Level 9.6 mg/dl (8.5-10.1) Assessment and Plan 71-year-old female with past medical history of metastatic lung cancer , severe COPD admitted with respiratory distress and underwent CT-guided biopsy of right lung mass, 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 Acute hypoxic respiratory failure likely secondary to metastatic lung cancer: - Continue O2 per protocol -Switched to by mouth azithromycin -Continue prednisone by mouth, will taper upon discharge -Continue Xopenex, Dulera( off formulary) - Venous Dopplers negative - CT surgery consult-CT guided biopsy - prelim path positive for squamous cell cancer - smoking cessation counseling, NicoDerm patch Epigastric pain: Likely secondary to gastritis Added Pepcid twice a day with sucralfate Hyponatremia: Sodium today at 134 from 131 on admission - Continue NSS - Monitor Uncontrolled blood pressure: Could be partially contributed by pain. No history of hypertension -Added 5 mg of lisinopril - Pain control with Percocet as scheduled (home dose) and morphine 2 mg every 4 hours when necessary Hyperlipidemia : -Continue statin Anxiety: Continue Ativan PT/OT DVT prophylaxis SCDs DO NOT RESUSCITATE Dispo: Monitor in tele. Assessment/Plan 71 y/o female h/o metastatic cancer w/ likely lung primary w/ acute on chronic hypoxic respiratory failure Acute on chronic COPD exacerbation - transition to PO steroids and antibiotics - continue inhaler therapy - wean O2 as tolerated Metastatic lung cancer - CT surgery and oncology consulted, input appreciated - biopsy completed 02.13.17, will follow for path - for bronch bx Sunday of next wk Hyponatremia - likely 2/2 paraneoplastic v. PNA v. other underlying disease - improving Bigeminy - telemetry monitoring Leukocytosis and elevated platelets - improving Emphysema - as above HLD - continue statin Anxiety - ativan PRN DNR Over an hour was spent discussing the topics in detail with the patient and family and answering questions as detailed in the HPI. History Resident Physician Supervision Note: I was present with Dr. Cuevas during the history and exam. I discussed the case with the resident and agree with the findings and plan as documented in the note. Any exceptions or clarifications are listed here. Shortness of breath stable, cough presently minimal. Complains of pain - rib pain is stable and aching and relieved by pain medication somewhat but still requiring regular medication (10/325) q7 hrs (ed). Epigastric burning pain which has become more notable of late similar to previous episode of gastritis which does apparently change with food though she is unable to say what happens. General Appearance: WD/WN, mild distress Respiratory: chest non-tender, no respiratory distress, decreased breath sounds (throughout) Cardiovascular: normal peripheral pulses, regular rate, rhythm, no edema, no murmur Gastrointestinal: normal bowel sounds, no organomegaly, tenderness (mild epigastric, reproducing burning TTP) Assessment/Plan 71 y/o female h/o metastatic cancer w/ likely lung primary w/ acute on chronic hypoxic respiratory failure Epigastric pain - likely gastritis from medication levy w/ h/o hiatal hernia (?) - will start pepcid and sucralfate and re-evaluate for improvement Rib pain - chronic, likely 2/2 rib and vertebral erosions - percocet w/ IV morphine for breakthrough. will likely add 12mcg fenatyl patch if no control today Elevated BP - likely 2/2 pain but persistent, will initiate low dose lisinopril for now, pain control as above Acute on chronic COPD exacerbation - continue prednisone and azithromycin w/ xopenex HFA and symbicort Metastatic lung cancer - CT surgery and oncology consulted, input appreciated, biopsy completed 02.13.17, path reviewed - for bronch bx Sunday of next wk Hyponatremia - likely 2/2 paraneoplastic v. PNA v. other underlying disease - resolved Bigeminy - telemetry monitoring Leukocytosis and elevated platelets - improving Emphysema - as above HLD - continue statin Anxiety - ativan PRN DNR Resident Tracking Resident Involvement: Resident Care Provided Care Provided: Adult Hospital Medicine
--- NOTE | 2017-02-15 11:34 | DIAGNOSTIC IMAGING REPORT ---
CHEST ONE VIEW PORTABLE HISTORY: Short of breath. COMPARISON: Chest 02/13/2017. FINDINGS: No pneumothorax. The heart is normal in size. Right lower lobe mass and a small moderate right pleural effusion remain unchanged. Left lower lobe nodule is better appreciated on the prior chest CT. Emphysema. IMPRESSION: 1. No pneumothorax. 2. No change in the right lower lobe mass and small to moderate right pleural effusion. Electronically signed by: Silas Gross M.D. 02/15/2017 11:32 AM Dictated Date/Time: 02/15/2017 11:31 AM
[2017-02-15] MEDS ORDERED: LISINOPRIL 5 MG TAB PO ONE (11:45)
--- NOTE | 2017-02-15 11:56 | Radiation Oncology Progress Nt ---
Radiation Oncology Progress Nt Date of Service Date of Service: February 15, 2017. Subjective Pt evaluation today including: conversation w/ patient, conversation w/ direct response consultant Objective Vital Signs Date Time Temp Pulse Resp B/P Pulse Ox O2 Delivery O2 Flow Rate FiO2 02/15/17 11:30 36.5 80 18 153/75 98 Room Air 02/15/17 08:00 92 Nasal Cannula 2.0 02/15/17 07:48 36.6 88 18 170/80 92 1.0 02/15/17 04:00 Nasal Cannula 2.0 02/15/17 04:00 36.7 83 18 161/71 91 Nasal Cannula 2.0 02/15/17 00:00 Nasal Cannula 2.0 02/14/17 23:59 37.0 89 17 147/56 91 Nasal Cannula 2.0 02/14/17 20:18 36.7 87 20 162/74 93 Room Air 02/14/17 20:00 Room Air 02/14/17 16:00 Room Air 02/14/17 15:52 36.8 76 16 146/71 92 Room Air 02/14/17 12:00 Nasal Cannula 2.0 Assessment and Plan I have spoken with the patient and we will plan to see her for a CT simulation for treatment planning for palliative radiation therapy after her medical oncology follow up with Dr. Ariza as an outpatient. I have discussed this aspect of her care with Dr. Ariza who is in agreement. My department will provide an appointment date/time for her scheduled CT simulation. Please call us with any further questions or concerns.
[2017-02-15] MEDS ORDERED: NURSING VERBAL MED ORDER ONE (14:30)
[2017-02-15] MEDS ORDERED: MoRPHine SULFATE 2 MG/ML CARP IV ONE (14:45)
[2017-02-15] MEDS: LORAZEPAM 0.5 MG TAB PO PRN ×2 (15:57→21:00)
[2017-02-15] MEDS ORDERED: SUCRALFATE 1 GM TAB PO ONE (16:45)
[2017-02-15] MEDS: SIMVASTATIN 10 MG TAB PO SCH (21:01)
[2017-02-15] MEDS: FAMOTIDINE 20 MG TAB PO SCH (21:02)
[2017-02-16] VITALS (9 sets, daily range): BP systolic 145–178; BP diastolic 60–87; PULSE 78–97; TEMP 36.4–36.7; O2SAT 91–98
[2017-02-16] MEDS: LEValbuterol HFA 15GM INHALER INH SCH ×5 (00:05→23:34)
[2017-02-16] MEDS: LORAZEPAM 0.5 MG TAB PO PRN (04:02)
[2017-02-16 06:15] LABS: HEMATOCRIT 30.4 % (37-47); MEAN CORPUSCULAR HEMOGLOBIN 24.8 pg (25-34); MEAN CORPUSCULAR HGB CONC 32.2 g/dl (32-36); MEAN PLATELET VOLUME 7.7 fL (7.4-10.4); PLATELET COUNT 759 K/uL (130-400); RED BLOOD COUNT 3.95 M/uL (4.2-5.4); WHITE BLOOD COUNT 22.57 K/uL (4.8-10.8)
[2017-02-16 06:52] LABS: BUN/CREATININE RATIO 19.5 (10-20); CALCIUM 9.5 mg/dl (8.5-10.1); CREATININE 1.1 mg/dl (0.60-1.20); POTASSIUM 3.8 mmol/L (3.5-5.1)
[2017-02-16 07:21] LABS: VEN BLOOD GAS BASE EXCESS 8.4 mmol/L; VENOUS BLOOD GAS PCO2 44 mmHg (38.0-50.0); VENOUS BLOOD GAS PO2 20 mmHg
[2017-02-16 07:26] LABS: VEN BLD GAS O2 SATURATION < 60.0 %
[2017-02-16] MEDS: OXYCODONE/ACETAMINOPHEN 10/325MG TAB PO PRN ×2 (07:26→14:36)
[2017-02-16] MEDS: MELOXICAM 7.5 MG TAB PO SCH ×2 (07:27→20:44)
[2017-02-16] MEDS: AZITHROMYCIN 250 MG TAB PO SCH (07:27)
[2017-02-16] MEDS: FAMOTIDINE 20 MG TAB PO SCH ×2 (07:27→20:44)
[2017-02-16] MEDS: CEROVITE ADV FORMULA TAB PO SCH (07:27)
[2017-02-16] MEDS: GUAIFENESIN 600 MG TABCR PO SCH ×2 (07:27→20:44)
[2017-02-16] MEDS: ASPIRIN 81 MG ECTAB PO SCH (07:27)
[2017-02-16] MEDS: CHOLECALCIFEROL 1000 INTER.UNIT TAB PO SCH (07:27)
[2017-02-16] MEDS: BUDESONIDE/FORMOTEROL FUMARATE 80/4.5 60 PUFFS/INHALER INH SCH ×2 (07:28→20:44)
[2017-02-16] MEDS: LISINOPRIL 5 MG TAB PO SCH (07:28)
[2017-02-16] MEDS: NICOTINE 21 MG/24 HR TDSY TD SCH (07:28)
--- NOTE | 2017-02-16 09:09 | Surgery Progress Note ---
Subjective Date of Service: February 16, 2017. Pt. notes generalized pain and SOB. Discussed with RN--pt. also noted urinary frequency. Objective Vitals Date Time Temp Pulse Resp B/P Pulse Ox O2 Delivery O2 Flow Rate FiO2 02/16/17 08:09 36.5 86 16 170/69 94 Nasal Cannula 3.0 02/16/17 08:00 Nasal Cannula 2.0 02/16/17 04:39 157/60 02/16/17 04:17 36.4 78 23 172/72 92 Nasal Cannula 2.0 02/16/17 04:00 Nasal Cannula 2.0 02/16/17 00:01 Nasal Cannula 2.0 02/15/17 23:43 36.8 92 22 156/75 96 Nasal Cannula 2.0 02/15/17 20:22 36.5 85 22 150/67 94 Nasal Cannula 2.0 02/15/17 20:00 Nasal Cannula 2.0 02/15/17 16:34 36.6 88 18 151/77 97 Nasal Cannula 2.0 02/15/17 16:00 94 Nasal Cannula 2.0 02/15/17 12:00 94 Nasal Cannula 2.0 02/15/17 11:30 36.5 80 18 153/75 98 Room Air Physical Exam General: No distress CV: + RRR Pulmonary: No accessory muscle use, No respiratory distress Assessment & Plan 71 year old female with right lung mass -CT guided needle biopsy performed (02/13/17): -preliminary path concerning for squamous cell CA -no pneumothorax on post-procedure CXR -consideration for FOB and biopsy in future: -Dr. Jeronimo to return tomorrow and determine if additional procedures needed -oncology to see as outpt. with further recommendations once final path available -due to symptoms will send UA & culture -discussed with primary service
--- NOTE | 2017-02-16 09:49 | Family Medicine Progress Note ---
Progress Note Date of Service February 16, 2017. Subjective Pain: complains of pain in the superpubic area Voiding: incontinence Complains of pain in the suprapubic area which is new. Has been having issues with incontinence of both bowel and bladder. Last night she had an episode of confusion. Continues to complain of pain in the back which is chronic and requests increasing her pain medication Constitutional: No chills, No fever Eyes: No worsening of vision ENT: No hearing loss Respiratory: + cough, + dyspnea on exertion Cardiovascular: No chest pain Abdomen: + nausea, + pain (suprapubic), No diarrhea, No vomiting Female : No dysuria Neurologic: No memory loss Medications Current Inpatient Medications Medications (Trade) Dose Ordered Sig/[place]anning Route Start Time Stop Time Status Last Admin Dose Admin Acetaminophen (Tylenol Tab) 650 mg Q4H PRN PO 02/12/17 00:15 03/14/17 00:14 Ondansetron HCl (Zofran Inj) 4 mg Q6H PRN IV 02/12/17 00:15 03/14/17 00:14 Nitroglycerin (Nitrostat Tab) 0.4 mg UD PRN SL 02/12/17 00:45 03/14/17 00:44 Morphine Sulfate (MoRPHine SULFATE INJ) 2 mg Q30M PRN IV 02/12/17 00:45 02/26/17 00:44 02/15/17 14:44 1 MG Aspirin (Ecotrin Tab) 81 mg DAILY PO 02/12/17 09:00 03/14/17 08:59 02/16/17 07:27 81 MG Cholecalciferol (Vitamin D Tab) 1,000 inter.unit DAILY PO 02/12/17 09:00 03/14/17 08:59 02/16/17 07:27 1,000 INTER.UNIT Meloxicam (Mobic Tab) 7.5 mg BID PO 02/12/17 09:00 03/14/17 08:59 02/16/17 07:27 7.5 MG Multivitamins/ Minerals (Multivitamin W/ Minerals Tab) 1 tab DAILY PO 02/12/17 09:00 03/14/17 08:59 02/16/17 07:27 1 TAB Oxycodone/ Acetaminophen (Percocet 10-325MG Tab) 1 tab QID PRN PO 02/12/17 02:21 02/26/17 02:20 02/16/17 07:26 1 TAB Simvastatin (Zocor Tab) 10 mg QPM PO 02/12/17 21:00 03/14/17 20:59 02/15/17 21:01 10 MG Nicotine (Nicoderm Cq 21MG Patch) 1 patch QAM TD 02/13/17 09:00 03/15/17 08:59 02/16/17 07:28 1 PATCH Miscellaneous (Remove Nicoderm Patch) 1 ea HS N/A 02/12/17 21:00 03/14/17 20:59 02/15/17 21:03 1 EA Lorazepam (Ativan Tab) 0.5 mg BID PRN PO 02/12/17 21:00 03/14/17 20:59 02/16/17 04:02 0.5 MG Guaifenesin (Mucinex Contr Rel Tab) 600 mg Q12 PO 02/12/17 21:00 03/14/17 20:59 02/16/17 07:27 600 MG Budesonide/ Formoterol Fumarate (Symbicort 80/ 4.5 Inh) 2 puffs BID INH 02/13/17 21:00 03/15/17 20:59 02/16/17 07:28 2 PUFFS Levalbuterol (Xopenex Hfa Inhaler) 2 puffs Q6 INH 02/14/17 00:00 03/16/17 00:00 02/16/17 05:51 2 PUFFS Azithromycin (Zithromax Tab) 500 mg QAM PO 02/15/17 09:00 02/19/17 08:59 02/16/17 07:27 500 MG Famotidine (Pepcid Tab) 20 mg BID PO 02/15/17 21:00 03/17/17 20:59 02/16/17 07:27 20 MG Morphine Sulfate (MoRPHine SULFATE INJ) 2 mg Q4H PRN IV 02/15/17 11:30 03/01/17 11:29 Lisinopril (Zestril Tab) 5 mg QAM PO 02/16/17 09:00 03/18/17 08:59 02/16/17 07:28 5 MG Objective Vital Signs Date Time Temp Pulse Resp B/P Pulse Ox O2 Delivery O2 Flow Rate FiO2 02/16/17 15:11 36.4 97 18 164/82 91 Nasal Cannula 2.0 02/16/17 12:00 Nasal Cannula 2.0 02/16/17 11:52 36.4 90 18 165/74 94 Nasal Cannula 3.0 02/16/17 08:09 36.5 86 16 170/69 94 Nasal Cannula 3.0 02/16/17 08:00 Nasal Cannula 2.0 02/16/17 04:39 157/60 02/16/17 04:17 36.4 78 23 172/72 92 Nasal Cannula 2.0 02/16/17 04:00 Nasal Cannula 2.0 02/16/17 00:01 Nasal Cannula 2.0 02/15/17 23:43 36.8 92 22 156/75 96 Nasal Cannula 2.0 02/15/17 20:22 36.5 85 22 150/67 94 Nasal Cannula 2.0 02/15/17 20:00 Nasal Cannula 2.0 02/15/17 16:34 36.6 88 18 151/77 97 Nasal Cannula 2.0 Physical Exam General Appearance: WD/WN, no apparent distress Eyes: normal inspection ENT: normal ENT inspection, hearing grossly normal Neck: supple Respiratory/Chest: chest non-tender, + decreased breath sounds, + wheezing Cardiovascular: regular rate, rhythm, no edema Abdomen: soft, + tenderness (superpubic tenderness) Extremities: no pedal edema, no calf tenderness Neurologic/Psychiatric: alert, normal mood/affect, oriented x 3 Laboratory Results 02/16/17 05:45 02/16/17 05:45 Test 02/16/17 05:45 02/16/17 07:10 02/16/17 10:50 02/16/17 11:29 Red Blood Count 3.95 M/uL (4.2-5.4) Mean Corpuscular Volume 77.0 fL (80-100) Mean Corpuscular Hemoglobin 24.8 pg (25-34) Mean Corpuscular Hemoglobin Concent 32.2 g/dl (32-36) RDW Standard Deviation 50.3 fL (36.4-46.3) RDW Coefficient of Variation 17.8 % (11.5-14.5) Mean Platelet Volume 7.7 fL (7.4-10.4) Anion Gap 6.0 mmol/L (3-11) Est Creatinine Clear Calc Drug Dose 34.2 ml/min Estimated GFR () 58.9 Estimated GFR (Non- 50.8 BUN/Creatinine Ratio 19.5 (10-20) Calcium Level 9.5 mg/dl (8.5-10.1) Venous Blood pH 7.49 (7.36-7.41) Venous Blood Partial Pressure CO2 44 mmHg (38.0-50.0) Venous Blood Partial Pressure O2 20 mmHg Venous Blood HCO3 33 mmol/L Venous Blood Oxygen Saturation < 60.0 % Venous Blood Base Excess 8.4 mmol/L Urine Color YELLOW Urine Appearance TURBID (CLEAR) Urine pH 7.5 (4.5-7.5) Urine Specific [place] 1.019 (1.000-1.030) Urine Protein NEG (NEG) Urine Glucose (UA) NEG (NEG) Urine Ketones NEG (NEG) Urine Occult Blood 2+ (NEG) Urine Nitrite NEG (NEG) Urine Bilirubin NEG (NEG) Urine Urobilinogen NEG (NEG) Urine Leukocyte Esterase NEG (NEG) Urine WBC (Auto) 5-10 /hpf (0-5) Urine RBC (Auto) 0-4 /hpf (0-4) Urine Hyaline Casts (Auto) 1-5 /lpf (0-5) Urine Epithelial Cells (Auto) >30 /lpf (0-5) Urine Bacteria (Auto) NEG (NEG) Urine Renal Epithelial Cells /lpf (0-5) Urine Yeast (Auto) PRESENT (NONE PRSENT) Bedside Glucose 121 mg/dl (70-90) Assessment and Plan 71-year-old female with past medical history of metastatic lung cancer , severe COPD admitted with respiratory distress and underwent CT-guided biopsy of right lung mass, 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 Complained of new onset suprapubic pain today KUB was obtained which was negative continues to complain of pain. Acute hypoxic respiratory failure likely secondary to metastatic lung cancer: - Continue O2 per protocol -Switched to by mouth azithromycin -Continue prednisone 40 mg, 20 mg from tomorrow -Continue Xopenex, Dulera( off formulary) - Venous Dopplers negative - CT surgery consult-CT guided biopsy - prelim path positive for squamous cell cancer - smoking cessation counseling, NicoDerm patch Epigastric pain: Likely secondary to gastritis Added Pepcid twice a day with sucralfate New onset suprapubic pain:? UTI considering history of incontinence, slight bump in white count,periods of confusion overnight KUB negative UA : 2+ occult blood Urine culture pending -Added Rocephin (though she was initially covered with vancomycin and Zosyn , they were discontinued and she was switched to azithromycin ) Hyponatremia: Resolved Sodium today at 136 from 131 on admission - Continue NSS - Monitor Uncontrolled blood pressure: Could be partially contributed by pain. No history of hypertension -Added 5 mg of lisinopril Chronic back pain secondary to suspected metastases in spine - Pain control with Percocet as scheduled (home dose) and morphine 2 mg every 4 hours when necessary , Added 12 g fentanyl patch for pain control with Percocet for breakthrough pain Hyperlipidemia : -Continue statin Anxiety: Continue Ativan PT/OT DVT prophylaxis SCDs DO NOT RESUSCITATE Dispo: Monitor in tele. History Resident Physician Supervision Note: I was present with Dr. Cuevas during the history and exam. I discussed the case with the resident and agree with the findings and plan as documented in the note. Any exceptions or clarifications are listed here. Episode of delirium overnight but was reoriented easily. Thoracic and upper back pain stable from previous, controlled w/ q6hr percocet 10/325. New onset suprapubic pain which was not present previously, accompanied by ?urinary frequency. Reports no fever, nausea/vomiting, bowel changes, CHENG, lightheadedness , sensory changes, CP/palpitations. General Appearance: WD/WN, mild distress Respiratory: chest non-tender, no respiratory distress, decreased breath sounds (improved, worse at RLL) Cardiovascular: normal peripheral pulses, regular rate, rhythm, no edema, no murmur Assessment/Plan 71 y/o female h/o metastatic cancer w/ likely lung primary w/ acute on chronic hypoxic respiratory failure Delirium in the setting of increased WBC and suprapubic pain - concern for UTI - f/u UA, add rocephin Acute on chronic COPD exacerbation - tolerating PO steroids and antibiotics, continue inhaler therapy, wean O2 as tolerated Metastatic lung cancer - CT surgery and oncology consulted, input appreciated - biopsy completed 02.13.17 - for bronch bx Sunday of next wk Bony lesions - transition to 12mcg fentanyl patch w/ percocet for baseline Hyponatremia - likely 2/2 paraneoplastic v. PNA v. other underlying disease - resolved Bigeminy - telemetry monitoring Emphysema - as above HLD - continue statin Anxiety - ativan PRN DNR Resident Tracking Resident Involvement: Resident Care Provided Care Provided: Adult Hospital Medicine
--- NOTE | 2017-02-16 10:34 | DIAGNOSTIC IMAGING REPORT ---
KUB CLINICAL HISTORY: Lower abdominal pain COMPARISON STUDY: No previous studies for comparison. FINDINGS: The soft tissues, psoas shadows, renal outlines and intestinal gas pattern appear normal. There is no evidence for bowel obstruction. No abnormal abdominal calcifications are seen. IMPRESSION: Normal study. Electronically signed by: Mathew Santos M.D. 02/16/2017 10:33 AM Dictated Date/Time: 02/16/2017 10:29 AM
[2017-02-16] MEDS: CEFTRIAXONE SOD INJ 1 GM in DEXTROSE 5% ADD-VANTAGE 50ML 50 ML IV SCH (11:35)
[2017-02-16] MEDS: MoRPHine SULFATE 2 MG/ML CARP IV PRN (13:18)
[2017-02-16 13:26] LABS: URINE APPEARANCE TURBID (CLEAR); URINE BILIRUBIN NEG (NEG); URINE COLOR YELLOW; URINE EPITHELIAL CELL AUTO >30 /lpf (0-5); URINE NITRITE NEG (NEG); URINE PH 7.5 (4.5-7.5); URINE SPECIFIC GRAVITY 1.019 (1.000-1.030); UROBILINOGEN NEG (NEG)
[2017-02-16 13:32] LABS: MANUAL MICROSCOPIC REQUIRED? NO; REVIEW REQ? YES; SULFASALICYLIC ACID NEG (NEG)
[2017-02-16] MEDS ORDERED: FENTANYL 12 MCG/HR TDSY TD SCH (16:45)
[2017-02-16] MEDS: SUCRALFATE 1 GM TAB PO SCH ×2 (17:14→20:44)
[2017-02-16] MEDS: SIMVASTATIN 10 MG TAB PO SCH (20:44)
[2017-02-16] MEDS: CLONAZEPAM 0.5 MG TAB PO SCH (20:49)
[2017-02-16] MEDS: CHECK FENTANYL PATCH PLACEMENT SCH (23:36)
[2017-02-17] VITALS (8 sets, daily range): BP systolic 149–172; BP diastolic 62–79; PULSE 70–99; TEMP 36.5–36.7; O2SAT 95–100
[2017-02-17] MEDS: LEValbuterol HFA 15GM INHALER INH SCH ×4 (06:11→23:32)
[2017-02-17] MEDS: CHECK FENTANYL PATCH PLACEMENT SCH ×3 (08:00→23:32)
[2017-02-17] MEDS: OXYCODONE/ACETAMINOPHEN 10/325MG TAB PO PRN ×3 (08:50→23:31)
[2017-02-17] MEDS: CLONAZEPAM 0.5 MG TAB PO SCH ×2 (08:51→21:14)
[2017-02-17] MEDS: LISINOPRIL 5 MG TAB PO SCH (08:52)
[2017-02-17] MEDS: CEROVITE ADV FORMULA TAB PO SCH (08:52)
[2017-02-17] MEDS: GUAIFENESIN 600 MG TABCR PO SCH ×2 (08:52→21:14)
[2017-02-17] MEDS: SUCRALFATE 1 GM TAB PO SCH ×4 (08:52→21:13)
[2017-02-17] MEDS: BUDESONIDE/FORMOTEROL FUMARATE 80/4.5 60 PUFFS/INHALER INH SCH ×2 (08:52→21:13)
[2017-02-17] MEDS: MELOXICAM 7.5 MG TAB PO SCH ×2 (08:52→21:14)
[2017-02-17] MEDS: NICOTINE 21 MG/24 HR TDSY TD SCH (08:53)
[2017-02-17] MEDS: ASPIRIN 81 MG ECTAB PO SCH (08:53)
[2017-02-17] MEDS: AZITHROMYCIN 250 MG TAB PO SCH (08:53)
[2017-02-17] MEDS: CHOLECALCIFEROL 1000 INTER.UNIT TAB PO SCH (08:53)
[2017-02-17] MEDS: FAMOTIDINE 20 MG TAB PO SCH ×2 (08:53→21:14)
[2017-02-17] MEDS: MoRPHine SULFATE 2 MG/ML CARP IV PRN (10:48)
--- NOTE | 2017-02-17 10:52 | SURGERY PROGRESS NOTE ---
DATE: 02/17/2017 DATE: 02/17/2017. Ms. Jain was seen today. She has been having episodes of confusion, urinary and fecal incontinence. Some of this may simply be due to the fact that she is receiving narcotics for the pain in her back. Her vital signs have been stable. This patient has a squamous cell carcinoma of the lung. This is involving the bone of her right chest. Quite frankly the patient has stage IV disease. We are going to cancel her navigational bronchoscopy. Diagnosing the mass in the left lower lobe is not going to change our course. From my understanding, she is to receive radiation therapy for palliation of the rib involvement on the right. She is going to require systemic therapy in any event. 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 She has terrible lung function and will not be a candidate for any type of resection and I would not work this up further as I believe we have enough evidence that she has advanced disease requiring systemic therapy. I had a very long discussion with the patient's daughter, Yoselin and explained this. She understands.
[2017-02-17] MEDS: CEFTRIAXONE SOD INJ 1 GM in DEXTROSE 5% ADD-VANTAGE 50ML 50 ML IV SCH (13:02)
--- NOTE | 2017-02-17 18:48 | Family Medicine Progress Note ---
Progress Note Date of Service February 17, 2017. Subjective Pt seen and examined at bedside. Overnight, persistent rib and back pain which required PRN medications as noted in EHR. Still complaining of persistent pain from bony lesions. Shortness of breath and cough considerably improved from admission. No fevers overnight. Epigastric abdominal pain improved along with rib pain, but not with GI medications per patient. Constitutional: No chills, No fever, No sweats Respiratory: + cough, No sputum, No wheezing Cardiovascular: + chest pain, No orthopnea, No palpitations Abdomen: + pain, No diarrhea, No nausea, No vomiting Skin: No itch, No rash Medications Current Inpatient Medications Medications (Trade) Dose Ordered Sig/[place]anning Route Start Time Stop Time Status Last Admin Dose Admin Acetaminophen (Tylenol Tab) 650 mg Q4H PRN PO 02/12/17 00:15 03/14/17 00:14 Ondansetron HCl (Zofran Inj) 4 mg Q6H PRN IV 02/12/17 00:15 03/14/17 00:14 Nitroglycerin (Nitrostat Tab) 0.4 mg UD PRN SL 02/12/17 00:45 03/14/17 00:44 Morphine Sulfate (MoRPHine SULFATE INJ) 2 mg Q30M PRN IV 02/12/17 00:45 02/26/17 00:44 02/17/17 10:48 2 MG Aspirin (Ecotrin Tab) 81 mg DAILY PO 02/12/17 09:00 03/14/17 08:59 02/17/17 08:53 81 MG Cholecalciferol (Vitamin D Tab) 1,000 inter.unit DAILY PO 02/12/17 09:00 03/14/17 08:59 02/17/17 08:53 1,000 INTER.UNIT Meloxicam (Mobic Tab) 7.5 mg BID PO 02/12/17 09:00 03/14/17 08:59 02/17/17 08:52 7.5 MG Multivitamins/ Minerals (Multivitamin W/ Minerals Tab) 1 tab DAILY PO 02/12/17 09:00 03/14/17 08:59 02/17/17 08:52 1 TAB Oxycodone/ Acetaminophen (Percocet 10-325MG Tab) 1 tab QID PRN PO 02/12/17 02:21 02/26/17 02:20 02/17/17 15:19 1 TAB Simvastatin (Zocor Tab) 10 mg QPM PO 02/12/17 21:00 03/14/17 20:59 02/16/17 20:44 10 MG Nicotine (Nicoderm Cq 21MG Patch) 1 patch QAM TD 02/13/17 09:00 03/15/17 08:59 02/17/17 08:53 1 PATCH Miscellaneous (Remove Nicoderm Patch) 1 ea HS N/A 02/12/17 21:00 03/14/17 20:59 02/16/17 20:44 1 EA Guaifenesin (Mucinex Contr Rel Tab) 600 mg Q12 PO 02/12/17 21:00 03/14/17 20:59 02/17/17 08:52 600 MG Budesonide/ Formoterol Fumarate (Symbicort 80/ 4.5 Inh) 2 puffs BID INH 02/13/17 21:00 03/15/17 20:59 02/17/17 08:52 2 PUFFS Levalbuterol (Xopenex Hfa Inhaler) 2 puffs Q6 INH 02/14/17 00:00 03/16/17 00:00 02/17/17 17:45 2 PUFFS Azithromycin (Zithromax Tab) 500 mg QAM PO 02/15/17 09:00 02/19/17 08:59 02/17/17 08:53 500 MG Famotidine (Pepcid Tab) 20 mg BID PO 02/15/17 21:00 03/17/17 20:59 02/17/17 08:53 20 MG Morphine Sulfate (MoRPHine SULFATE INJ) 2 mg Q4H PRN IV 02/15/17 11:30 03/01/17 11:29 Lisinopril 5 mg 5 mg QAM PO 02/16/17 09:00 03/18/17 08:59 02/17/17 08:52 5 MG Ceftriaxone Sodium/Dextrose (Rocephin Inj/ Dextrose Add-[place] 50ML) 50 ml @ 100 mls/hr DAILY@1200 IV 02/16/17 12:00 02/21/17 11:59 02/17/17 13:02 100 MLS/HR Clonazepam (Klonopin Tab) 0.25 mg BID PO 02/16/17 21:00 03/18/17 20:59 02/17/17 08:51 0.25 MG Fentanyl (Duragesic Patch) 12 mcg Q3D@0900 TD 02/16/17 16:45 03/02/17 16:44 02/16/17 17:15 12 MCG Miscellaneous (Fentanyl Patch Remove & Waste) 1 ea Q3D@0859 N/A 02/19/17 08:59 03/21/17 08:58 Miscellaneous Information (Check Fentanyl Patch Placement) 1 ea QS N/A 02/17/17 00:00 03/19/17 00:00 02/17/17 15:20 1 EA Prednisone (PredniSONE TAB) 20 mg Taper DAILY PO 02/17/17 09:00 02/23/17 08:59 02/17/17 10:48 20 MG Sucralfate (Carafate Tab) 1 gm DAILY@0630,1030,1545 PO 02/18/17 06:30 03/20/17 06:29 Sucralfate (Carafate Tab) 1 gm HS PO 02/17/17 21:00 03/19/17 20:59 Objective Vital Signs Date Time Temp Pulse Resp B/P Pulse Ox O2 Delivery O2 Flow Rate FiO2 02/17/17 16:00 97 Nasal Cannula 2.0 02/17/17 15:56 36.6 92 20 149/65 95 2.0 02/17/17 12:00 97 Nasal Cannula 2.0 02/17/17 12:00 36.6 70 16 152/62 100 Nasal Cannula 2.0 02/17/17 09:01 36.5 89 20 172/71 97 Nasal Cannula 2.0 02/17/17 08:00 97 Nasal Cannula 2.0 02/17/17 04:31 36.7 79 22 159/79 99 Nasal Cannula 2.0 02/17/17 04:00 Nasal Cannula 2.0 02/17/17 00:01 95 Nasal Cannula 2.0 02/16/17 23:57 36.6 80 16 145/66 98 02/16/17 23:08 36.7 87 25 178/87 98 Nasal Cannula 2.0 02/16/17 20:00 95 Nasal Cannula 2.0 02/16/17 19:30 36.4 88 16 161/67 95 Room Air Physical Exam General Appearance: WD/WN, no apparent distress Eyes: normal inspection, PERRL, EOMI Respiratory/Chest: chest non-tender, no respiratory distress, + decreased breath sounds Cardiovascular: regular rate, rhythm, no edema, no murmur Abdomen: normal bowel sounds, soft, + tenderness (epigastrically) Skin: normal color, warm/dry, no rash Assessment and Plan 71 y/o female h/o metastatic cancer w/ likely lung primary w/ acute on chronic hypoxic respiratory failure Stage IV metastatic lung cancer - CT surgery, rad/onc and oncology consulted, input appreciated - biopsy completed 02.13.17 - will d/w rad/onc tomorrow re: pallation of rib lesions, onc for further course of therapy and family w/ goals of care conversation Bony lesions - transition to 12mcg fentanyl patch w/ percocet for baseline - after adjusting for PRN dosing today, will trial 25mcg patch tomorrow for baseline control Acute on chronic COPD exacerbation - tolerating PO steroids and antibiotics, continue inhaler therapy, wean O2 as tolerated Delirium in the setting of increased WBC and suprapubic pain - UA pending, no further episodes. Pain control as noted. Continue Rocephin Hyponatremia - likely 2/2 paraneoplastic v. PNA v. other underlying disease - resolved Emphysema - as above HLD - continue statin Anxiety - ativan PRN DNR
[2017-02-17] MEDS: SIMVASTATIN 10 MG TAB PO SCH (21:14)
[2017-02-18] VITALS (9 sets, daily range): BP systolic 124–159; BP diastolic 60–71; PULSE 52–93; TEMP 36.3–37; O2SAT 92–98
[2017-02-18] MEDS: SUCRALFATE 1 GM TAB PO SCH ×4 (06:05→20:16)
[2017-02-18] MEDS: LEValbuterol HFA 15GM INHALER INH SCH ×3 (06:05→17:48)
[2017-02-18] MEDS: OXYCODONE/ACETAMINOPHEN 10/325MG TAB PO PRN ×2 (06:16→16:38)
[2017-02-18] MEDS: CLONAZEPAM 0.5 MG TAB PO SCH ×2 (07:45→20:15)
[2017-02-18] MEDS: MoRPHine SULFATE 2 MG/ML CARP IV PRN ×2 (07:46→21:28)
[2017-02-18] MEDS: MELOXICAM 7.5 MG TAB PO SCH ×2 (07:47→20:16)
[2017-02-18] MEDS: ASPIRIN 81 MG ECTAB PO SCH (07:47)
[2017-02-18] MEDS: FAMOTIDINE 20 MG TAB PO SCH ×2 (07:47→20:17)
[2017-02-18] MEDS: GUAIFENESIN 600 MG TABCR PO SCH ×2 (07:47→20:16)
[2017-02-18] MEDS: NICOTINE 21 MG/24 HR TDSY TD SCH (07:47)
[2017-02-18] MEDS: CEROVITE ADV FORMULA TAB PO SCH (07:47)
[2017-02-18] MEDS: BUDESONIDE/FORMOTEROL FUMARATE 80/4.5 60 PUFFS/INHALER INH SCH ×2 (07:48→20:15)
[2017-02-18] MEDS: LISINOPRIL 5 MG TAB PO SCH (07:48)
[2017-02-18] MEDS: CHOLECALCIFEROL 1000 INTER.UNIT TAB PO SCH (07:48)
[2017-02-18] MEDS: CHECK FENTANYL PATCH PLACEMENT SCH ×3 (07:48→23:25)
--- NOTE | 2017-02-18 09:48 | SURGERY PROGRESS NOTE ---
DATE: 02/18/2017 SUBJECTIVE: Ms. Jain seems a bit more oriented and a bit better today. She is still complaining of pain in her right posterior chest. I have canceled her navigational bronchoscopy that was initially scheduled on 02/23/2017. I explained carefully to the patient and her daughter, Yoselin yesterday that there is no need to perform this procedure now. This patient has stage 4 disease; they understand. I do agree with radiation for control of her pain in a palliative manner.
[2017-02-18] MEDS: CEFTRIAXONE SOD INJ 1 GM in DEXTROSE 5% ADD-VANTAGE 50ML 50 ML IV SCH (12:06)
--- NOTE | 2017-02-18 18:24 | Family Medicine Progress Note ---
Progress Note Date of Service February 18, 2017. Subjective Pt seen and examined at bedside. Rib, back and epigastric/rib pain improved by more aggressive pain control and relatively tolerable without significant sedation. Reviewed status with family including: results of pathology, no longer doing annabella-bronch and radiotherapy per rad/onc, as well as the need to retouch w/ hematology. Reports resolution of SOB and now at baseline without O2. Still with motor weakness but working with PT. Reports no fever, n/v, diarrhea/constipation, rashes. Constitutional: No chills, No fever, No sweats Respiratory: + cough, + dyspnea on exertion, No shortness of breath, No wheezing Cardiovascular: + chest pain (stable rib lesion pain), No edema, No palpitations Abdomen: No diarrhea, No nausea, No pain, No vomiting Female : No dysuria, No hematuria, No incontinence, No urinary frequency Medications Current Inpatient Medications Medications (Trade) Dose Ordered Sig/[place] Route Start Time Stop Time Status Last Admin Dose Admin Acetaminophen (Tylenol Tab) 650 mg Q4H PRN PO 02/12/17 00:15 03/14/17 00:14 Ondansetron HCl (Zofran Inj) 4 mg Q6H PRN IV 02/12/17 00:15 03/14/17 00:14 Nitroglycerin (Nitrostat Tab) 0.4 mg UD PRN SL 02/12/17 00:45 03/14/17 00:44 Morphine Sulfate (MoRPHine SULFATE INJ) 2 mg Q30M PRN IV 02/12/17 00:45 02/26/17 00:44 02/18/17 07:46 2 MG Aspirin (Ecotrin Tab) 81 mg DAILY PO 02/12/17 09:00 03/14/17 08:59 02/18/17 07:47 81 MG Cholecalciferol (Vitamin D Tab) 1,000 inter.unit DAILY PO 02/12/17 09:00 03/14/17 08:59 02/18/17 07:48 1,000 INTER.UNIT Meloxicam (Mobic Tab) 7.5 mg BID PO 02/12/17 09:00 03/14/17 08:59 02/18/17 07:47 7.5 MG Multivitamins/ Minerals (Multivitamin W/ Minerals Tab) 1 tab DAILY PO 02/12/17 09:00 03/14/17 08:59 02/18/17 07:47 1 TAB Oxycodone/ Acetaminophen (Percocet 10-325MG Tab) 1 tab QID PRN PO 02/12/17 02:21 02/26/17 02:20 02/18/17 16:38 1 TAB Simvastatin (Zocor Tab) 10 mg QPM PO 02/12/17 21:00 03/14/17 20:59 02/17/17 21:14 10 MG Nicotine (Nicoderm Cq 21MG Patch) 1 patch QAM TD 02/13/17 09:00 03/15/17 08:59 02/18/17 07:47 1 PATCH Miscellaneous (Remove Nicoderm Patch) 1 ea HS N/A 02/12/17 21:00 03/14/17 20:59 02/17/17 21:10 1 EA Guaifenesin (Mucinex Contr Rel Tab) 600 mg Q12 PO 02/12/17 21:00 03/14/17 20:59 02/18/17 07:47 600 MG Budesonide/ Formoterol Fumarate (Symbicort 80/ 4.5 Inh) 2 puffs BID INH 02/13/17 21:00 03/15/17 20:59 02/18/17 07:48 2 PUFFS Levalbuterol (Xopenex Hfa Inhaler) 2 puffs Q6 INH 02/14/17 00:00 03/16/17 00:00 02/18/17 17:48 2 PUFFS Famotidine (Pepcid Tab) 20 mg BID PO 02/15/17 21:00 03/17/17 20:59 02/18/17 07:47 20 MG Morphine Sulfate (MoRPHine SULFATE INJ) 2 mg Q4H PRN IV 02/15/17 11:30 03/01/17 11:29 Lisinopril 5 mg 5 mg QAM PO 02/16/17 09:00 03/18/17 08:59 02/18/17 07:48 5 MG Ceftriaxone Sodium/Dextrose (Rocephin Inj/ Dextrose Add-[place] 50ML) 50 ml @ 100 mls/hr DAILY@1200 IV 02/16/17 12:00 02/21/17 11:59 02/18/17 12:06 100 MLS/HR Clonazepam (Klonopin Tab) 0.25 mg BID PO 02/16/17 21:00 03/18/17 20:59 02/18/17 07:45 0.25 MG Fentanyl (Duragesic Patch) 12 mcg Q3D@0900 TD 02/16/17 16:45 03/02/17 16:44 02/16/17 17:15 12 MCG Miscellaneous (Fentanyl Patch Remove & Waste) 1 ea Q3D@0859 N/A 02/19/17 08:59 03/21/17 08:58 Miscellaneous Information (Check Fentanyl Patch Placement) 1 ea QS N/A 02/17/17 00:00 03/19/17 00:00 02/18/17 16:00 1 EA Prednisone (PredniSONE TAB) 20 mg Taper DAILY PO 02/17/17 09:00 02/23/17 08:59 02/18/17 07:47 20 MG Sucralfate (Carafate Tab) 1 gm DAILY@0630,1030,1545 PO 02/18/17 06:30 03/20/17 06:29 02/18/17 16:35 1 GM Sucralfate (Carafate Tab) 1 gm HS PO 02/17/17 21:00 03/19/17 20:59 02/17/17 21:13 1 GM Objective Vital Signs Date Time Temp Pulse Resp B/P Pulse Ox O2 Delivery O2 Flow Rate FiO2 02/18/17 16:17 36.9 87 20 125/62 92 Room Air 02/18/17 16:00 Room Air 02/18/17 12:00 97 Nasal Cannula 2.0 02/18/17 11:39 36.4 93 20 159/65 95 Nasal Cannula 2.0 02/18/17 08:28 36.5 78 20 124/60 97 Nasal Cannula 2.0 02/18/17 08:00 97 Nasal Cannula 2.0 02/18/17 04:00 Nasal Cannula 2.0 02/18/17 03:34 36.8 78 18 147/71 98 Nasal Cannula 2.0 02/18/17 00:02 36.3 75 20 155/67 97 Nasal Cannula 2.0 02/18/17 00:02 Nasal Cannula 2.0 02/17/17 20:00 Nasal Cannula 2.0 02/17/17 19:50 36.6 99 20 168/78 95 Nasal Cannula 2.0 Physical Exam General Appearance: WD/WN, no apparent distress Respiratory/Chest: chest non-tender, no respiratory distress, + respiratory distress, + pertinent finding (TTP over known rib lesions) Cardiovascular: regular rate, rhythm, no edema, no murmur Abdomen: normal bowel sounds, non tender, soft, no organomegaly Neurologic/Psychiatric: access lead II-XII nml as tested, no motor/sensory deficits, alert, normal mood/affect, oriented x 3 Assessment and Plan 71 y/o female h/o metastatic cancer w/ likely lung primary w/ COPD exacerbation Stage IV metastatic lung cancer - CT surgery, rad/onc and oncology consulted, input appreciated - d/w rad/onc tomorrow re: pallation of rib lesions, onc for further course of therapy Bony lesions - increase to 25mcg fentanyl patch w/ percocet for baseline Acute on chronic COPD exacerbation - tolerated PO therapy - completed abx, continue inhaler therapy, wean O2 as tolerated Delirium in the setting of increased WBC and suprapubic pain - UCx inconclusive , sx resolved w/ rocephin. Continue Rocephin for 5 day course. Hyponatremia - likely 2/2 paraneoplastic v. PNA v. other underlying disease - resolved Emphysema - as above HLD - continue statin Anxiety - ativan PRN DNR
[2017-02-18] MEDS: SIMVASTATIN 10 MG TAB PO SCH (20:17)
[2017-02-19] MEDS: LEValbuterol HFA 15GM INHALER INH SCH ×4 (00:50→18:46)
[2017-02-19 04:03] VITALS: BP 149/65; PULSE 82; TEMP 36.7; O2SAT 98
[2017-02-19] MEDS: MoRPHine SULFATE 2 MG/ML CARP IV PRN ×2 (04:11→07:31)
[2017-02-19 05:59] LABS: BASO ABS # 0.01 K/uL (0-0.2); EOS % 1.8 %; HEMATOCRIT 26.8 % (37-47); IG% 0.8 %; LYMPH % 13.9 %; LYMPH ABS # 2.92 K/uL (1.2-3.4); MEAN CELL VOLUME 77.5 fL (80-100); MEAN CORPUSCULAR HEMOGLOBIN 24.9 pg (25-34); MEAN CORPUSCULAR HGB CONC 32.1 g/dl (32-36); MONO % 9.9 %; NEUT % 73.6 %; PLATELET COUNT 611 K/uL (130-400); RED BLOOD COUNT 3.46 M/uL (4.2-5.4); WHITE BLOOD COUNT 21.02 K/uL (4.8-10.8)
[2017-02-19] MEDS: SUCRALFATE 1 GM TAB PO SCH ×4 (06:00→20:16)
[2017-02-19 06:24] LABS: COMPLETE YES
[2017-02-19 06:34] LABS: BUN/CREATININE RATIO 21.5 (10-20); CREATININE 0.97 mg/dl (0.60-1.20); POTASSIUM 3.6 mmol/L (3.5-5.1)
[2017-02-19] MEDS: NICOTINE 21 MG/24 HR TDSY TD SCH (07:34)
[2017-02-19] MEDS ORDERED: FENTANYL 25 MCG/HR TDSY ONE (07:37)
[2017-02-19] MEDS: BUDESONIDE/FORMOTEROL FUMARATE 80/4.5 60 PUFFS/INHALER INH SCH ×2 (07:42→20:14)
[2017-02-19] MEDS: CHECK FENTANYL PATCH PLACEMENT SCH ×2 (07:42→15:51)
[2017-02-19] MEDS: CEROVITE ADV FORMULA TAB PO SCH (07:49)
[2017-02-19] MEDS: CHOLECALCIFEROL 1000 INTER.UNIT TAB PO SCH (07:49)
[2017-02-19] MEDS: GUAIFENESIN 600 MG TABCR PO SCH ×2 (07:49→20:16)
[2017-02-19] MEDS: ASPIRIN 81 MG ECTAB PO SCH (07:49)
[2017-02-19] MEDS: FAMOTIDINE 20 MG TAB PO SCH ×2 (07:50→20:15)
[2017-02-19] MEDS: CLONAZEPAM 0.5 MG TAB PO SCH ×2 (07:54→20:15)
[2017-02-19 07:56] VITALS: BP 148/71; PULSE 87; TEMP 37; O2SAT 97
[2017-02-19] MEDS: MELOXICAM 7.5 MG TAB PO SCH ×2 (08:42→20:16)
[2017-02-19] MEDS: OXYCODONE/ACETAMINOPHEN 10/325MG TAB PO PRN ×3 (08:42→20:15)
[2017-02-19] MEDS: LISINOPRIL 5 MG TAB PO SCH (08:43)
[2017-02-19] MEDS ORDERED: POLYETHYLENE (MIRALAX) 17 GM PACK PO PRN (08:45)
[2017-02-19] MEDS ORDERED: FENTANYL PATCH REMOVE & WASTE SCH (08:59)
[2017-02-19] MEDS ORDERED: FENTANYL 25 MCG/HR TDSY TD SCH (09:00)
--- NOTE | 2017-02-19 11:31 | Family Medicine Progress Note ---
Progress Note Date of Service February 19, 2017. Subjective Pt evaluation today including: conversation w/ patient, physical exam, chart review, lab review Pain: Mild pain this morning Constitutional: No chills, No fever, No sweats Eyes: No eye pain, No worsening of vision ENT: No hearing loss, No nasal symptoms, No sore throat Respiratory: No cough, No sputum, No wheezing Cardiovascular: No chest pain, No edema, No orthopnea Abdomen: No nausea, No pain Musculoskeletal: + problem reported (bone pain, per presentation) Female : + dysuria, + urinary frequency Medications Current Inpatient Medications Medications (Trade) Dose Ordered Sig/Channing Route Start Time Stop Time Status Last Admin Dose Admin Acetaminophen (Tylenol Tab) 650 mg Q4H PRN PO 02/12/17 00:15 03/14/17 00:14 Ondansetron HCl (Zofran Inj) 4 mg Q6H PRN IV 02/12/17 00:15 03/14/17 00:14 Nitroglycerin (Nitrostat Tab) 0.4 mg UD PRN SL 02/12/17 00:45 03/14/17 00:44 Morphine Sulfate (MoRPHine SULFATE INJ) 2 mg Q30M PRN IV 02/12/17 00:45 02/26/17 00:44 02/19/17 07:31 2 MG Aspirin (Ecotrin Tab) 81 mg DAILY PO 02/12/17 09:00 03/14/17 08:59 02/19/17 07:49 81 MG Cholecalciferol (Vitamin D Tab) 1,000 inter.unit DAILY PO 02/12/17 09:00 03/14/17 08:59 02/19/17 07:49 1,000 INTER.UNIT Meloxicam (Mobic Tab) 7.5 mg BID PO 02/12/17 09:00 03/14/17 08:59 02/19/17 08:42 7.5 MG Multivitamins/ Minerals (Multivitamin W/ Minerals Tab) 1 tab DAILY PO 02/12/17 09:00 03/14/17 08:59 02/19/17 07:49 1 TAB Oxycodone/ Acetaminophen (Percocet 10-325MG Tab) 1 tab QID PRN PO 02/12/17 02:21 02/26/17 02:20 02/19/17 08:42 1 TAB Simvastatin (Zocor Tab) 10 mg QPM PO 02/12/17 21:00 03/14/17 20:59 02/18/17 20:17 10 MG Nicotine (Nicoderm Cq 21MG Patch) 1 patch QAM TD 02/13/17 09:00 03/15/17 08:59 02/19/17 07:34 1 PATCH Miscellaneous (Remove Nicoderm Patch) 1 ea HS N/A 02/12/17 21:00 03/14/17 20:59 02/18/17 20:15 1 EA Guaifenesin (Mucinex Contr Rel Tab) 600 mg Q12 PO 02/12/17 21:00 03/14/17 20:59 02/19/17 07:49 600 MG Budesonide/ Formoterol Fumarate (Symbicort 80/ 4.5 Inh) 2 puffs BID INH 02/13/17 21:00 03/15/17 20:59 02/19/17 07:42 2 PUFFS Levalbuterol (Xopenex Hfa Inhaler) 2 puffs Q6 INH 02/14/17 00:00 03/16/17 00:00 02/19/17 10:52 2 PUFFS Famotidine (Pepcid Tab) 20 mg BID PO 02/15/17 21:00 03/17/17 20:59 02/19/17 07:50 20 MG Morphine Sulfate (MoRPHine SULFATE INJ) 2 mg Q4H PRN IV 02/15/17 11:30 03/01/17 11:29 02/19/17 04:11 2 MG Clonazepam (Klonopin Tab) 0.25 mg BID PO 02/16/17 21:00 03/18/17 20:59 02/19/17 07:54 0.25 MG Miscellaneous (Fentanyl Patch Remove & Waste) 1 ea Q3D@0859 N/A 02/19/17 08:59 03/21/17 08:58 02/19/17 07:38 1 EA Miscellaneous Information (Check Fentanyl Patch Placement) 1 ea QS N/A 02/17/17 00:00 03/19/17 00:00 02/19/17 07:42 1 EA Prednisone (PredniSONE TAB) 20 mg Taper DAILY PO 02/17/17 09:00 02/23/17 08:59 02/19/17 07:49 20 MG Sucralfate (Carafate Tab) 1 gm DAILY@0630,1030,1545 PO 02/18/17 06:30 03/20/17 06:29 02/19/17 10:51 1 GM Sucralfate (Carafate Tab) 1 gm HS PO 02/17/17 21:00 03/19/17 20:59 02/18/17 20:16 1 GM Fentanyl (Duragesic Patch) 25 mcg Q3D@0900 TD 02/19/17 09:00 03/05/17 08:59 02/19/17 07:43 25 MCG Lisinopril (Zestril Tab) 10 mg QAM PO 02/19/17 09:00 03/21/17 08:59 02/19/17 08:43 10 MG Polyethylene (Miralax Powder Packet) 17 gm DAILY PRN PO 02/19/17 08:45 03/21/17 08:44 Objective Vital Signs Date Time Temp Pulse Resp B/P Pulse Ox O2 Delivery O2 Flow Rate FiO2 02/19/17 08:00 Room Air 02/19/17 07:56 37.0 87 18 148/71 97 Nasal Cannula 3.0 02/19/17 04:03 36.7 82 18 149/65 98 Nasal Cannula 3.0 02/19/17 04:00 Room Air 02/18/17 23:45 Room Air 02/18/17 23:11 36.6 52 18 149/60 98 Nasal Cannula 3.0 02/18/17 20:06 37.0 80 20 136/67 98 Nasal Cannula 3.0 02/18/17 20:00 Room Air 02/18/17 16:17 36.9 87 20 125/62 92 Room Air 02/18/17 16:00 Room Air 02/18/17 12:00 97 Nasal Cannula 2.0 02/18/17 11:39 36.4 93 20 159/65 95 Nasal Cannula 2.0 Physical Exam General Appearance: no apparent distress, + thin Eyes: normal inspection, EOMI ENT: hearing grossly normal, pharynx normal Neck: supple, no adenopathy, no JVD Respiratory/Chest: lungs clear, normal breath sounds Cardiovascular: regular rate, rhythm, no gallop, no murmur Abdomen: normal bowel sounds, non tender, soft Extremities: non-tender, no pedal edema Neurologic/Psychiatric: alert, normal mood/affect, oriented x 3 Skin: normal color, warm/dry, no rash Laboratory Results Last 24 Hours Test 02/19/17 05:20 White Blood Count 21.02 K/uL Red Blood Count 3.46 M/uL Hemoglobin 8.6 g/dL Hematocrit 26.8 % Mean Corpuscular Volume 77.5 fL Mean Corpuscular Hemoglobin 24.9 pg Mean Corpuscular Hemoglobin Concent 32.1 g/dl Platelet Count 611 K/uL Mean Platelet Volume 8.0 fL Neutrophils (%) (Auto) 73.6 % Lymphocytes (%) (Auto) 13.9 % Monocytes (%) (Auto) 9.9 % Eosinophils (%) (Auto) 1.8 % Basophils (%) (Auto) 0.0 % Neutrophils # (Auto) 15.46 K/uL Lymphocytes # (Auto) 2.92 K/uL Monocytes # (Auto) 2.08 K/uL Eosinophils # (Auto) 0.38 K/uL Basophils # (Auto) 0.01 K/uL RDW Standard Deviation 52.3 fL RDW Coefficient of Variation 18.4 % Immature Granulocyte % (Auto) 0.8 % Immature Granulocyte # (Auto) 0.17 K/uL Red Blood Cell Morphology Unremarkable Sodium Level 136 mmol/L Potassium Level 3.6 mmol/L Chloride Level 98 mmol/L Carbon Dioxide Level 33 mmol/L Anion Gap 5.0 mmol/L Blood Urea Nitrogen 21 mg/dl Creatinine 0.97 mg/dl Est Creatinine Clear Calc Drug Dose 38.8 ml/min Estimated GFR () 68.6 Estimated GFR (Non- 59.2 BUN/Creatinine Ratio 21.5 Random Glucose 96 mg/dl Calcium Level 9.0 mg/dl Assessment and Plan 71 year old female with new diagnosis of squamous cell carcinoma of the lung. Has metastatic disease, stage IV, aims at this point are palliative. The patient is currently stable and doing well. 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 - For possible palliative radiotherapy tomorrow - Oncology consulted, were awaiting second biopsy via navigational bronchoscopy but this has been cancelled in light of stage IV disease, will contact and have them see patient to discuss other modalities of treatment Bone Pain - 2/2 metastatic disease - Continue Percocet - Continue Morphine Acute COPD Exacerbation - Resolving - Continue Levalbuterol - Continue Symbicort - Continue Prednisone taper - Patient currently on 3 L NC; has no home oxygen needs; may have permanent oxygen needs in light of cancer diagnosis above UTI with altered mental status - Mentating well toady - Has gotten 3 days of Rocephin; urine culture growing >3 organisms; will D/C Rocephin at this point Hyponatremia - Resolving,Na 136 today - May have been contributor to initial encephalopathy Hyperlipidemia - Continue Simvastatin Hypertension - Continue Lisinopril - BPs 140s systolic which are acceptable; may reflect pain so needs to be monitored closely Anxiety - Continue Clonazepam DVT Prophylaxis - High risk for VTE due to malignancy - Heparin 5000 s.c TID Code Status - DNR Reviewed: Pt Seen/Exam by Me History no new concerns Constitutional: denies: fever Respiratory: positive: short of breath (same ) Cardiovascular: denies chest pain General Appearance: no apparent distress Respiratory: decreased breath sounds Cardiovascular: regular rate, rhythm Gastrointestinal: soft Neurologic/Psychiatric: alert, oriented x 3 Skin Characteristics: warm/dry Assessment/Plan I have reviewed the medical record and performed a history and physical examination of this patient today. I have discussed the case with Dr. Flores. The above note reflects my findings, conclusions, and recommendations.
[2017-02-19 12:03] VITALS: BP 139/64; PULSE 90; TEMP 36.7; O2SAT 96
[2017-02-19] MEDS: HEPARIN SOD 5000 UNIT/0.5 ML CARP SQ SCH ×2 (13:42→20:25)
[2017-02-19 15:32] VITALS: BP 155/67; PULSE 92; TEMP 36.7; O2SAT 91
[2017-02-19 20:01] VITALS: BP 147/65; PULSE 83; TEMP 36.4; O2SAT 99
[2017-02-19] MEDS: SIMVASTATIN 10 MG TAB PO SCH (20:17)
[2017-02-19 23:58] VITALS: BP 149/71; PULSE 71; TEMP 36.7; O2SAT 98
[2017-02-20] VITALS (9 sets, daily range): BP systolic 104–149; BP diastolic 60–82; PULSE 70–92; TEMP 36.3–36.8; O2SAT 96–100
[2017-02-20] MEDS: LEValbuterol HFA 15GM INHALER INH SCH ×4 (05:46→18:13)
[2017-02-20] MEDS: HEPARIN SOD 5000 UNIT/0.5 ML CARP SQ SCH ×3 (05:49→20:34)
[2017-02-20 05:56] LABS: HEMATOCRIT 25.5 % (37-47); MEAN CELL VOLUME 77.7 fL (80-100); MEAN CORPUSCULAR HEMOGLOBIN 25.3 pg (25-34); MEAN CORPUSCULAR HGB CONC 32.5 g/dl (32-36); MEAN PLATELET VOLUME 7.9 fL (7.4-10.4); PLATELET COUNT 556 K/uL (130-400); RED BLOOD COUNT 3.28 M/uL (4.2-5.4); WHITE BLOOD COUNT 18.18 K/uL (4.8-10.8)
[2017-02-20] MEDS: SUCRALFATE 1 GM TAB PO SCH ×4 (05:59→20:28)
[2017-02-20 06:31] LABS: BUN/CREATININE RATIO 23.4 (10-20); CALCIUM 8.9 mg/dl (8.5-10.1); CREATININE 0.82 mg/dl (0.60-1.20)
[2017-02-20] MEDS: MoRPHine SULFATE 2 MG/ML CARP IV PRN ×3 (08:04→22:35)
[2017-02-20] MEDS: CHECK FENTANYL PATCH PLACEMENT SCH ×3 (08:11→16:13)
[2017-02-20] MEDS: BUDESONIDE/FORMOTEROL FUMARATE 80/4.5 60 PUFFS/INHALER INH SCH ×2 (08:12→20:28)
[2017-02-20] MEDS: CEROVITE ADV FORMULA TAB PO SCH (08:12)
[2017-02-20] MEDS: MELOXICAM 7.5 MG TAB PO SCH ×2 (08:12→20:30)
[2017-02-20] MEDS: ASPIRIN 81 MG ECTAB PO SCH (08:12)
[2017-02-20] MEDS: GUAIFENESIN 600 MG TABCR PO SCH ×2 (08:12→20:29)
[2017-02-20] MEDS: LISINOPRIL 5 MG TAB PO SCH (08:13)
[2017-02-20] MEDS: CHOLECALCIFEROL 1000 INTER.UNIT TAB PO SCH (08:13)
[2017-02-20] MEDS: CLONAZEPAM 0.5 MG TAB PO SCH ×2 (08:14→20:27)
[2017-02-20] MEDS: NICOTINE 21 MG/24 HR TDSY TD SCH (08:14)
[2017-02-20] MEDS: FAMOTIDINE 20 MG TAB PO SCH ×2 (08:14→20:30)
[2017-02-20] MEDS: OXYCODONE/ACETAMINOPHEN 10/325MG TAB PO PRN ×2 (11:50→20:25)
--- NOTE | 2017-02-20 13:32 | Family Medicine Progress Note ---
Progress Note Date of Service February 20, 2017. Subjective Pt evaluation today including: conversation w/ patient, physical exam, chart review, lab review Pain: Controlled Voiding: no voiding problems No complaints at this time remains concerned about insurance coverage States need for hospital bed and home oxygen Understands prognosis and that lung cancer is incurable at this point; uncertain if daughter is there yet Constitutional: No chills, No fever, No sweats Eyes: No eye pain, No redness, No worsening of vision ENT: No hearing loss, No nasal symptoms, No sore throat, No tinnitus Respiratory: + shortness of breath (controlled with inhalerse and O2), No cough, No sputum, No wheezing Cardiovascular: No chest pain, No claudication, No edema, No palpitations Abdomen: No constipation, No diarrhea, No nausea, No pain, No vomiting Female : No dysuria, No hematuria, No urinary frequency Neurologic: No memory loss, No numbness/tingling, No paralysis, No vertigo Heme: No swollen lymph nodes Endo: No fatigue Skin: No color change, No new/changing skin lesions, No rash Medications Current Inpatient Medications Medications (Trade) Dose Ordered Sig/Channing Route Start Time Stop Time Status Last Admin Dose Admin Acetaminophen (Tylenol Tab) 650 mg Q4H PRN PO 02/12/17 00:15 03/14/17 00:14 Ondansetron HCl (Zofran Inj) 4 mg Q6H PRN IV 02/12/17 00:15 03/14/17 00:14 Nitroglycerin (Nitrostat Tab) 0.4 mg UD PRN SL 02/12/17 00:45 03/14/17 00:44 Morphine Sulfate (MoRPHine SULFATE INJ) 2 mg Q30M PRN IV 02/12/17 00:45 02/26/17 00:44 02/20/17 08:04 2 MG Aspirin (Ecotrin Tab) 81 mg DAILY PO 02/12/17 09:00 03/14/17 08:59 02/20/17 08:12 81 MG Cholecalciferol (Vitamin D Tab) 1,000 inter.unit DAILY PO 02/12/17 09:00 03/14/17 08:59 02/20/17 08:13 1,000 INTER.UNIT Meloxicam (Mobic Tab) 7.5 mg BID PO 02/12/17 09:00 03/14/17 08:59 02/20/17 08:12 7.5 MG Multivitamins/ Minerals (Multivitamin W/ Minerals Tab) 1 tab DAILY PO 02/12/17 09:00 03/14/17 08:59 02/20/17 08:12 1 TAB Oxycodone/ Acetaminophen (Percocet 10-325MG Tab) 1 tab QID PRN PO 02/12/17 02:21 02/26/17 02:20 02/20/17 11:50 1 TAB Simvastatin (Zocor Tab) 10 mg QPM PO 02/12/17 21:00 03/14/17 20:59 02/19/17 20:17 10 MG Nicotine (Nicoderm Cq 21MG Patch) 1 patch QAM TD 02/13/17 09:00 03/15/17 08:59 02/20/17 08:14 1 PATCH Miscellaneous (Remove Nicoderm Patch) 1 ea HS N/A 02/12/17 21:00 03/14/17 20:59 02/19/17 20:14 1 EA Guaifenesin (Mucinex Contr Rel Tab) 600 mg Q12 PO 02/12/17 21:00 03/14/17 20:59 02/20/17 08:12 600 MG Budesonide/ Formoterol Fumarate (Symbicort 80/ 4.5 Inh) 2 puffs BID INH 02/13/17 21:00 03/15/17 20:59 02/20/17 08:12 2 PUFFS Levalbuterol (Xopenex Hfa Inhaler) 2 puffs Q6 INH 02/14/17 00:00 03/16/17 00:00 02/20/17 05:46 2 PUFFS Famotidine (Pepcid Tab) 20 mg BID PO 02/15/17 21:00 03/17/17 20:59 02/20/17 08:14 20 MG Morphine Sulfate (MoRPHine SULFATE INJ) 2 mg Q4H PRN IV 02/15/17 11:30 03/01/17 11:29 02/19/17 04:11 2 MG Clonazepam (Klonopin Tab) 0.25 mg BID PO 02/16/17 21:00 03/18/17 20:59 02/20/17 08:14 0.25 MG Miscellaneous (Fentanyl Patch Remove & Waste) 1 ea Q3D@0859 N/A 02/19/17 08:59 03/21/17 08:58 02/19/17 07:38 1 EA Miscellaneous Information (Check Fentanyl Patch Placement) 1 ea QS N/A 02/17/17 00:00 03/19/17 00:00 02/20/17 08:11 1 EA Prednisone (PredniSONE TAB) 10 mg Taper DAILY PO 02/17/17 09:00 02/23/17 08:59 02/20/17 08:13 10 MG Sucralfate (Carafate Tab) 1 gm DAILY@0630,1030,1545 PO 02/18/17 06:30 03/20/17 06:29 02/20/17 05:59 1 GM Sucralfate (Carafate Tab) 1 gm HS PO 02/17/17 21:00 03/19/17 20:59 02/19/17 20:16 1 GM Fentanyl (Duragesic Patch) 25 mcg Q3D@0900 TD 02/19/17 09:00 03/05/17 08:59 02/19/17 07:43 25 MCG Lisinopril (Zestril Tab) 10 mg QAM PO 02/19/17 09:00 03/21/17 08:59 02/20/17 08:13 10 MG Polyethylene (Miralax Powder Packet) 17 gm DAILY PRN PO 02/19/17 08:45 03/21/17 08:44 02/20/17 08:16 17 GM Heparin Sodium (Porcine) (Heparin Sq 5000 Unit/0.5ml) 5,000 unit Q8 SQ 02/19/17 14:00 03/21/17 13:59 02/20/17 05:49 5,000 UNIT Objective Vital Signs Date Time Temp Pulse Resp B/P Pulse Ox O2 Delivery O2 Flow Rate FiO2 02/20/17 08:00 96 Nasal Cannula 2.0 02/20/17 07:55 36.7 92 20 116/82 96 Nasal Cannula 2.0 02/20/17 04:06 36.7 79 24 149/69 98 Nasal Cannula 2.0 02/20/17 04:00 98 Nasal Cannula 02/20/17 00:01 98 Nasal Cannula 2.0 02/19/17 23:58 36.7 71 19 149/71 98 Nasal Cannula 2.0 02/19/17 20:01 36.4 83 18 147/65 99 Nasal Cannula 2.0 02/19/17 20:00 Room Air 02/19/17 16:00 Room Air 02/19/17 15:32 36.7 92 18 155/67 91 Room Air Physical Exam General Appearance: WD/WN, no apparent distress Eyes: normal inspection, EOMI ENT: normal ENT inspection, hearing grossly normal, pharynx normal Neck: supple, no adenopathy, no JVD Respiratory/Chest: chest non-tender, lungs clear, normal breath sounds Cardiovascular: regular rate, rhythm, no gallop, no murmur Abdomen: normal bowel sounds, non tender, soft Extremities: non-tender, no pedal edema Neurologic/Psychiatric: alert, normal mood/affect, oriented x 3 Skin: normal color, warm/dry, no rash Lymphatic: no adenopathy Laboratory Results Last 24 Hours Test 02/20/17 05:39 White Blood Count 18.18 K/uL Red Blood Count 3.28 M/uL Hemoglobin 8.3 g/dL Hematocrit 25.5 % Mean Corpuscular Volume 77.7 fL Mean Corpuscular Hemoglobin 25.3 pg Mean Corpuscular Hemoglobin Concent 32.5 g/dl RDW Standard Deviation 52.9 fL RDW Coefficient of Variation 18.6 % Platelet Count 556 K/uL Mean Platelet Volume 7.9 fL Sodium Level 137 mmol/L Potassium Level 4.0 mmol/L Chloride Level 99 mmol/L Carbon Dioxide Level 34 mmol/L Anion Gap 4.0 mmol/L Blood Urea Nitrogen 19 mg/dl Creatinine 0.82 mg/dl Est Creatinine Clear Calc Drug Dose 45.9 ml/min Estimated GFR () 84.0 Estimated GFR (Non- 72.5 BUN/Creatinine Ratio 23.4 Random Glucose 94 mg/dl Calcium Level 8.9 mg/dl Assessment and Plan 71 year old female with new diagnosis of squamous cell carcinoma of the lung, unfortunately metastatic stage IV. Trying to formulate disposition plan at this stage. Patient stable without any new acute issues to be addressed. 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 Ariza as an outpatient - Has persistent hypoxia 2/2 Lung Ca and COPD background 2 step ordered to get home O2 set up Bone Pain - 2/2 metastatic disease - Continue Percocet - Continue Morphine - Plan to be evaluated for palliative radiotherapy Acute COPD Exacerbation - Resolving - Continue Levalbuterol, Symbicort - Continue Prednisone taper - Patient currently on 3 L NC UTI with altered mental status - alert and oriented x 3 today; CAM score is negative; - urine culture grew >3 organism - finished 3 days of rocephin Hyponatremia - Resolved 137 today Hyperlipidemia - Continue Simvastatin Hypertension - Continue Lisinopril - BPs 110-150 systolic Anxiety - Continue Clonazepam DVT Prophylaxis - High risk for VTE due to malignancy - Heparin 5000 s.c TID Code Status - DNR - Consulted palliative care; engaged in conversation with patient and re- iterated that Lung Ca at this point is metastatic and goals of care would not include a curative approach. We have offered the patient to go home on hospice and did explain additional advantages that it may confer in keeping her comfortable; the patient is agreeable and I have discussed with case management to have the liaison sit down with patient and family to get her set up. Patient will ultimately need home O2, hospital bed - Goal to discharge home - Downgrade to med/Surg today Reviewed: Pt Seen/Exam by Me History breathing stable Constitutional: denies: fever Respiratory: negative: short of breath Cardiovascular: denies chest pain General Appearance: no apparent distress Respiratory: decreased breath sounds Cardiovascular: regular rate, rhythm Neurologic/Psychiatric: alert, oriented x 3 Skin Characteristics: warm/dry Assessment/Plan I have reviewed the medical record and performed a history and physical examination of this patient today. I have discussed the case with Dr. Flores. The above note reflects my findings, conclusions, and recommendations.
--- NOTE | 2017-02-20 15:28 | Palliative Care Consultation ---
Consultation Date of Consultation: February 20, 2017. Requesting Physician: Dr. Flores Attending Physician: Dr. Flores, Dr. Lamar Reason for Consultation: Goals of care, hospice History of Present Illness This 71 year old female patient presented to the ED eight days ago with c/o progressive SOB. She has a history of metastatic lung cancer and advanced COPD, admitted with COPD exacerbation and lung mass. CT scan showed 11cm RLL lung mass that is invading T9 vertebra with right eighth rib pathological fracture, also with 1.9cm spiculated mass of LLL, severe emphysema, and small right pleural effusion. Had CT-guided needle aspiration of RLL which showed squamous cell carcinoma. She has been following with CT surgery who canceled her navigational bronchoscopy as there was no real indication for it at this point; she is not a surgical candidate as she has severe lung disease and worsening functional status. Patient and family trying to decide on appropriate level of care upon discharge. Palliative care consulted to establish goals of care. I met the patient in room [address] Flores. Patient is awake, alert and oriented. Denies any pain or discomfort at this time while sitting up in chair. She is well-aware that her disease is stage IV and incurable. She is ready to focus solely on comfort. She will follow up with Dr. Ariza outpatient to discuss any possibility of salvage chemotherapy. She is to undergo CT simulation tomorrow for palliative radiation. Her goal is to be comfortable for whatever remaining time she has left. She does not want to be in the hospital. We discussed hospice, the service they provide, and their philosophy of care. Patient stated, "I think the hospice route sounds good." She states that her daughter Yoselin is on-board, but her daughter Jonathan is having a harder time accepting. However, patient feels she will be more accepting with time. All are aware that there is no curative treatment. Past Medical/Surgical History Medical History: COPD Long-standing tobacco use 2PPD Stage IV lung cancer Social History Smoking Status: Current Every Day Smoker (smoking 6 cig/ day, down from 2 PPD x 60 years) History of Alcohol Use: No Drug Use: none Marital Status: Occupation Status: disabled Review of Systems Constitutional: + weakness Respiratory: + cough, + dyspnea on exertion, No dyspnea at rest Cardiac: No chest pain Abdomen: No nausea, No pain, No vomiting Psychiatric: No anxiety Allergies Uncoded Allergies: anesthesia gas (Allergy, Unknown, sick, 03/17/16) Medications Current Inpatient Medications Medications (Trade) Dose Ordered Sig/Channing Route Start Time Stop Time Status Last Admin Dose Admin Acetaminophen (Tylenol Tab) 650 mg Q4H PRN PO 02/12/17 00:15 03/14/17 00:14 Ondansetron HCl (Zofran Inj) 4 mg Q6H PRN IV 02/12/17 00:15 03/14/17 00:14 Nitroglycerin (Nitrostat Tab) 0.4 mg UD PRN SL 02/12/17 00:45 03/14/17 00:44 Morphine Sulfate (MoRPHine SULFATE INJ) 2 mg Q30M PRN IV 02/12/17 00:45 02/26/17 00:44 02/20/17 08:04 2 MG Aspirin (Ecotrin Tab) 81 mg DAILY PO 02/12/17 09:00 03/14/17 08:59 02/20/17 08:12 81 MG Cholecalciferol (Vitamin D Tab) 1,000 inter.unit DAILY PO 02/12/17 09:00 03/14/17 08:59 02/20/17 08:13 1,000 INTER.UNIT Meloxicam (Mobic Tab) 7.5 mg BID PO 02/12/17 09:00 03/14/17 08:59 02/20/17 08:12 7.5 MG Multivitamins/ Minerals (Multivitamin W/ Minerals Tab) 1 tab DAILY PO 02/12/17 09:00 03/14/17 08:59 02/20/17 08:12 1 TAB Oxycodone/ Acetaminophen (Percocet 10-325MG Tab) 1 tab QID PRN PO 02/12/17 02:21 02/26/17 02:20 02/20/17 11:50 1 TAB Simvastatin (Zocor Tab) 10 mg QPM PO 02/12/17 21:00 03/14/17 20:59 02/19/17 20:17 10 MG Nicotine (Nicoderm Cq 21MG Patch) 1 patch QAM TD 02/13/17 09:00 03/15/17 08:59 02/20/17 08:14 1 PATCH Miscellaneous (Remove Nicoderm Patch) 1 ea HS N/A 02/12/17 21:00 03/14/17 20:59 02/19/17 20:14 1 EA Guaifenesin (Mucinex Contr Rel Tab) 600 mg Q12 PO 02/12/17 21:00 03/14/17 20:59 02/20/17 08:12 600 MG Budesonide/ Formoterol Fumarate (Symbicort 80/ 4.5 Inh) 2 puffs BID INH 02/13/17 21:00 03/15/17 20:59 02/20/17 08:12 2 PUFFS Levalbuterol (Xopenex Hfa Inhaler) 2 puffs Q6 INH 02/14/17 00:00 03/16/17 00:00 02/20/17 14:17 2 PUFFS Famotidine (Pepcid Tab) 20 mg BID PO 02/15/17 21:00 03/17/17 20:59 02/20/17 08:14 20 MG Morphine Sulfate (MoRPHine SULFATE INJ) 2 mg Q4H PRN IV 02/15/17 11:30 03/01/17 11:29 02/19/17 04:11 2 MG Clonazepam (Klonopin Tab) 0.25 mg BID PO 02/16/17 21:00 03/18/17 20:59 02/20/17 08:14 0.25 MG Miscellaneous (Fentanyl Patch Remove & Waste) 1 ea Q3D@0859 N/A 02/19/17 08:59 03/21/17 08:58 02/19/17 07:38 1 EA Miscellaneous Information (Check Fentanyl Patch Placement) 1 ea QS N/A 02/17/17 00:00 03/19/17 00:00 02/20/17 08:11 1 EA Prednisone (PredniSONE TAB) 10 mg Taper DAILY PO 02/17/17 09:00 02/23/17 08:59 02/20/17 08:13 10 MG Sucralfate (Carafate Tab) 1 gm DAILY@0630,1030,1545 PO 02/18/17 06:30 03/20/17 06:29 02/20/17 05:59 1 GM Sucralfate (Carafate Tab) 1 gm HS PO 02/17/17 21:00 03/19/17 20:59 02/19/17 20:16 1 GM Fentanyl (Duragesic Patch) 25 mcg Q3D@0900 TD 02/19/17 09:00 03/05/17 08:59 02/19/17 07:43 25 MCG Lisinopril (Zestril Tab) 10 mg QAM PO 02/19/17 09:00 03/21/17 08:59 02/20/17 08:13 10 MG Polyethylene (Miralax Powder Packet) 17 gm DAILY PRN PO 02/19/17 08:45 03/21/17 08:44 02/20/17 08:16 17 GM Heparin Sodium (Porcine) (Heparin Sq 5000 Unit/0.5ml) 5,000 unit Q8 SQ 02/19/17 14:00 03/21/17 13:59 02/20/17 14:25 5,000 UNIT Physical Exam Date Time Temp Pulse Resp B/P Pulse Ox O2 Delivery O2 Flow Rate FiO2 02/20/17 12:00 Nasal Cannula 2.0 02/20/17 08:00 96 Nasal Cannula 2.0 02/20/17 07:55 36.7 92 20 116/82 96 Nasal Cannula 2.0 02/20/17 04:06 36.7 79 24 149/69 98 Nasal Cannula 2.0 02/20/17 04:00 98 Nasal Cannula 02/20/17 00:01 98 Nasal Cannula 2.0 02/19/17 23:58 36.7 71 19 149/71 98 Nasal Cannula 2.0 02/19/17 20:01 36.4 83 18 147/65 99 Nasal Cannula 2.0 02/19/17 20:00 Room Air 02/19/17 16:00 Room Air 02/19/17 15:32 36.7 92 18 155/67 91 Room Air General Appearance: no apparent distress, + thin ENT: hearing grossly normal Neck: supple, no JVD Respiratory: no respiratory distress, no accessory muscle use, + pertinent finding (nasal cannula) Cardiovascular: regular rate, rhythm Neurologic/Psychiatric: alert, normal mood/affect, oriented x 3 Laboratory Results Last 24 Hours Test 02/20/17 05:39 White Blood Count 18.18 K/uL Red Blood Count 3.28 M/uL Hemoglobin 8.3 g/dL Hematocrit 25.5 % Mean Corpuscular Volume 77.7 fL Mean Corpuscular Hemoglobin 25.3 pg Mean Corpuscular Hemoglobin Concent 32.5 g/dl RDW Standard Deviation 52.9 fL RDW Coefficient of Variation 18.6 % Platelet Count 556 K/uL Mean Platelet Volume 7.9 fL Sodium Level 137 mmol/L Potassium Level 4.0 mmol/L Chloride Level 99 mmol/L Carbon Dioxide Level 34 mmol/L Anion Gap 4.0 mmol/L Blood Urea Nitrogen 19 mg/dl Creatinine 0.82 mg/dl Est Creatinine Clear Calc Drug Dose 45.9 ml/min Estimated GFR () 84.0 Estimated GFR (Non- 72.5 BUN/Creatinine Ratio 23.4 Random Glucose 94 mg/dl Calcium Level 8.9 mg/dl Assessment & Plan Palliative Performance Scale: 60 % Problem list: SOB/[place] Pain Stage IV lung CA with mets to T9, pathological rib fracture COPD exacerbation Goals of care (Z51.5) Palliative care plan: -DNR/DNI per previous discussion -Goal is for comfort and to stay out of hospital -Will follow up with medical oncology to discuss any possibility of salvage chemo. Is also following with radiation oncology for planned palliative radiation. Uncertain if chemo is going to be an option or if patient would want to pursue it. -Referral to [facility]: Palliative vs. hospice. Patient wants hospice, but uncertain of any further treatments. [facility] to [facility] to determine [facility] of care. -Will do POLST form with patient tomorrow before discharge. Thank you kindly for this consult. I will follow.
[2017-02-20] MEDS: SIMVASTATIN 10 MG TAB PO SCH (20:31)
[2017-02-21] MEDS: CHECK FENTANYL PATCH PLACEMENT SCH ×2 (00:22→08:23)
[2017-02-21] MEDS: LEValbuterol HFA 15GM INHALER INH SCH ×3 (00:23→12:21)
[2017-02-21 03:47] VITALS: BP 112/63; PULSE 72; TEMP 36.7; O2SAT 100
[2017-02-21] MEDS: HEPARIN SOD 5000 UNIT/0.5 ML CARP SQ SCH (05:58)
[2017-02-21] MEDS: SUCRALFATE 1 GM TAB PO SCH ×2 (05:59→12:21)
[2017-02-21] MEDS: MoRPHine SULFATE 2 MG/ML CARP IV PRN (06:37)
[2017-02-21 07:05] VITALS: BP 110/71; PULSE 78; TEMP 36.6; O2SAT 100
[2017-02-21 08:00] VITALS: O2SAT 100
[2017-02-21] MEDS: GUAIFENESIN 600 MG TABCR PO SCH (08:18)
[2017-02-21] MEDS: MELOXICAM 7.5 MG TAB PO SCH (08:18)
[2017-02-21] MEDS: BUDESONIDE/FORMOTEROL FUMARATE 80/4.5 60 PUFFS/INHALER INH SCH (08:18)
[2017-02-21] MEDS: ASPIRIN 81 MG ECTAB PO SCH (08:18)
[2017-02-21] MEDS: CLONAZEPAM 0.5 MG TAB PO SCH (08:18)
[2017-02-21] MEDS: CEROVITE ADV FORMULA TAB PO SCH (08:19)
[2017-02-21] MEDS: OXYCODONE/ACETAMINOPHEN 10/325MG TAB PO PRN (08:19)
[2017-02-21] MEDS: CHOLECALCIFEROL 1000 INTER.UNIT TAB PO SCH (08:19)
[2017-02-21] MEDS: LISINOPRIL 5 MG TAB PO SCH (08:20)
[2017-02-21] MEDS: FAMOTIDINE 20 MG TAB PO SCH (08:21)
[2017-02-21] MEDS: NICOTINE 21 MG/24 HR TDSY TD SCH (08:22)
--- NOTE | 2017-02-21 11:28 | Palliative Care Progress Note ---
Palliative Care Progress Note Date of Service February 21, 2017. Subjective Pt evaluation today including: conversation w/ patient, conversation w/ family , physical exam, conversation w/ travel consultant Pain: 0/10 at this time PO Intake: tolerating diet Voiding: no voiding problems -Patient is awake, alert and oriented. Does have some forgetfulness which she admits to. -Patient states that she and her daughters met with youth liaison officer yesterday and it is still undecided at this time if patient will leave on hospice or palliative services. -I specifically talked with her about chemo and asked if it was an option, if she would want it. Patient stated she would absolutely not want any chemotherapy. However, she is willing to give palliative radiation a try. I asked if her daughters know her wishes, she said, "They'd want me to go through everything if it were up to them, but yeah they know." I asked patient to call me when her daughters are here so we can have a conversation regarding goals of care and fill out a POLST form. She will call. Review of Systems Constitutional: + problem reported ("tired") Respiratory: + dyspnea on exertion, No cough Cardiac: No chest pain, No edema Abdomen: No nausea, No pain, No vomiting Female : No problem reported Neurologic: + problem reported (reported forgetfulness) Psychiatric: No anxiety Objective Vital Signs Date Time Temp Pulse Resp B/P Pulse Ox O2 Delivery O2 Flow Rate FiO2 02/21/17 08:00 100 Nasal Cannula 3.0 02/21/17 07:05 36.6 78 20 110/71 100 02/21/17 03:47 36.7 72 18 112/63 100 Nasal Cannula 3.0 02/21/17 00:00 Nasal Cannula 2.0 02/20/17 23:36 36.3 70 20 104/60 100 Nasal Cannula 3.0 02/20/17 19:31 36.8 86 18 145/71 98 Nasal Cannula 2.0 02/20/17 16:15 Nasal Cannula 2.0 02/20/17 14:47 36.6 85 16 128/70 97 Nasal Cannula 3.0 02/20/17 14:30 36.7 92 20 96 2.0 02/20/17 12:00 Nasal Cannula 2.0 Physical Exam General Appearance: no apparent distress, + thin ENT: hearing grossly normal Neck: supple, no JVD Respiratory/Chest: no respiratory distress, no accessory muscle use, + decreased breath sounds, + pertinent finding (3LNC) Cardiovascular: regular rate, rhythm, no edema, + normal peripheral pulses Abdomen: normal bowel sounds, non tender, soft Neurologic/Psychiatric: alert, normal mood/affect, oriented x 3 Laboratory Results Last 24 Hours Test 02/21/17 07:10 Bedside Glucose 102 mg/dl Assessment and Plan Problem list: SOB/[place] Pain Stage IV lung CA with mets to T9, pathological rib fracture COPD exacerbation Goals of care (Z51.5) Palliative care plan: -DNR/DNI per previous discussion -Goal is for comfort and to stay out of hospital -Patient will follow up to med/onc but states she does not want chemo. Is also following with radiation oncology for planned palliative radiation. -Referral to [facility]: Palliative vs. hospice. Patient wants hospice, but uncertain of any further treatments. Will leave this up to [facility] to determine appropriate level of care. -Please change IV morphine to Roxanol 5mg PO Q3h PRN pain or SOB. -1300: Met with patient and her two daughters, Yoselin (POA), and Jonathan. They have decided to sign patient on to home health until follow-ups are made and they know all their options for treatment. This is all new to the patient and daughters, they just weren't quite ready to sign patient on with hospice. warehouse manager and Dr Flores aware. POLST form completed as follows: DNR/DNI, limited additional interventions, use of abx if life can be prolonged and trial of IVF if indicated with comfort as the goal, no feeding tube. Palliative Performance Scale: 60 % Discharge planning: home with home health (eventual transititon to hospice)
[2017-02-21] MEDS ORDERED: Nicotine TD (12:33)
[2017-02-21] MEDS ORDERED: OXYC-59 PO (12:33)
[2017-02-21] MEDS ORDERED: OXYC1TAB3 PO ×2 (12:33→12:45)
[2017-02-21] MEDS ORDERED: DRGTP25 TD (12:33)
[2017-02-21] MEDS ORDERED: PRD10 PO (12:33)
[2017-02-21] MEDS ORDERED: IPRASOL4 INH (12:33)
--- NOTE | 2017-02-21 12:43 | Discharge Instructions ---
Discharge Instructions Date of Service February 21, 2017. Admission Reason for Admission: COPD exacerbation Discharge Discharge Diagnosis / Problem: COPD, Squamous Cell Cancer of the Lung Discharge Goals Goal(s): Decrease discomfort, Improve disease control, Improve nutritional status Activity Recommendations Activity Limitations: as noted below Lifting Limitations: no more than 10 pounds, gradually increase as tolerated Exercise/Sports Limitations: gradually increase as tolerated . Instructions / Follow-Up Instructions / Follow-Up You were admitted to the hospital for an exacerbation of your COPD. We treated your with nebulizers and steroids and you made a good improvement. You will have a short course of steroids to take at home after discharge. In addition, we have renewed your nebulizers (DuoNeb). These are to be take if you are short of breath/wheezing despite taking your regular inhalers. You were also evaluated for the diagnosis of lung cancer. A biopsy was done confirming squamous cell cancer stage IV. We will arrange for you to see Dr. Ariza and determine next steps. Furthermore, you will have assessed before discharge for palliative radiotherapy. Once you are discharged you will also follow-up with radiation oncology. In discussion with you, you will be discharged with home nursing. The option will be available to pursue hospice care if you decide with your family that is what you want. Our goals as you go home are to help with your symptoms. We will do the following: For your pain Continue Meloxicam We have renewed your Percocet tablets and have increased the frequency at which you can take it to every 4 hours. We will prescribe you with fentanyl patches We will prescribe you some Miralax to help with constipation For your shortness of breath We will get you set up with home oxygen We will prescribe you with nebulizer solution to use if you become short of breath/wheezy despite your regular inhalers In addition, to get you situated properly at home, we will get you set up with a hospital bed to use. Our case resolution specialist will coordinate this. If your symptoms fail to improve, acutely worsen, please seek medical attention immediately by either calling your primary care provider or the home care agency. Otherwise, please see your primary care provider in 3-5 days to ensure that your symptoms continue to improve. It was a pleasure to be involved in your care and we wish you all the best. Current Hospital Diet Patient's current hospital diet: AHA Diet (Heart Healthy) Discharge Diet Recommended Diet: Regular Diet Pending Studies Studies pending at discharge: no Laboratory Results Hemoglobin A1c Test 02/14/17 05:30 Range/Units Estimated Average Glucose 117 mg/dl Hemoglobin A1c 5.7 H 4.5-5.6 % Medical Emergencies . Who to Call and When: Medical Emergencies: If at any time you feel your situation is an emergency, please call 911 immediately. . Non-Emergent Contact Non-Emergency issues call your: Primary Care Provider Call Non-Emergent contact if: your pain is not controlled, your pain is worsening . Past History Medical & Surgical History: (1) COPD exacerbation (2) Emphysema (subcutaneous) (surgical) resulting from a procedure (3) Dyspnea . "Provider Documentation" section prepared by Yanick Flores. . VTE Core Measure Inpt VTE Proph given/why not?: Enoxaparin (Lovenox)SQ, SCD's [place] Drug Monitoring Program Search Results: patient reviewed within database, no issues identified
[2017-02-21] MEDS ORDERED: POLY335019 PO (12:45)
[2017-02-21 13:54] VITALS: BP 110/71; PULSE 78; TEMP 36.6; O2SAT 100
--- NOTE | 2017-02-21 17:21 | Discharge Summary ---
Discharge Summary Date of Service February 21, 2017. (Yanick Flores MD) Discharge Summary Admission Date: February 12, 2017 at 00:40 Discharge Date: February 21, 2017 Discharge Disposition: Home Principal Diagnosis: Metastatic Squamous Cell Cancer of the Lung, Severe COPD Procedures: CT guided Biopsy of Right Lower Lobe [facility] NON-GYNECOLOGICAL CYTOLOGY REPORT Name: JASPER ESTRADA Case: [id number] NON-GYNECOLOGICAL CYTOLOGY REPORT Page 2 of [address] [place] [address] Osmin Iglesias M.D. Director NON-GYNECOLOGICAL CYTOLOGY REPORT NON-GYNECOLOGICAL CYTOLOGY REPORT Page 1 of 3 CLINICAL HISTORY Large lung mass. GROSS DESCRIPTION 3DQ, 3PAP, CB Rapid Onsite evaluations were performed by Dr. Iglesias Total evaluation episodes: 1 PASS# TIME DIAGNOSIS 1. 141 Adequate 2. 1420 3. 1423 PM MICROSCOPIC DESCRIPTION Immunohistochemical stains at [facility] ([facility]) are performed for diagnostic reasons (i.e. detection of malignancy, tumor subtyping, infection identification), therapy selection (i.e. estrogen receptor) and genetic disorder evaluation (i.e. Valladares syndrome). The quantity and specific types of immunohistochemistry stains are purposely chosen in the context of the clinical history, morphologic findings and best clinical practice. Immunohistochemical stains are performed at [facility] on a [employer] automated system with performance determined by the [facility] Laboratory. Some stains may be performed by other laboratories ([facility] or [facility]) with development and performance characteristics determined by that laboratory. When necessary, on- line positive controls are reviewed at that particular laboratory. These tests have not been cleared or approved for specific use by the U.S. Food and Drug Administration. The FDA has determined that such approval is not necessary. The test is used for clinical purposes. It should not be regarded as investigational or for research. This laboratory is certified under CLIA 1988 as qualified to perform high complexity testing. Immunohistochemistry performed on decalcified specimens is done with antigen retrieval which has been internally validated in the [facility] laboratory. Immunocytochemistry may be performed on alcohol fixed smears, cytospins or Thin Prep slides. Immunocytochemistry on all of these types of slides has been internally validated in the [facility] laboratory. FINAL DIAGNOSIS LUNG, RIGHT LOWER LOBE, CT-GUIDED ASPIRATION: SQUAMOUS CELL CARCINOMA. SEE COMMENT. COMMENT: The cytology smears show necrotic material and malignant epithelial cells. Squamous differentiation is evident on the Pap-stained smear. Tumor is present on the cell block. The malignant cells of interest show positive staining with P40 and CK5/6. They are negative with TTF-1 and Napsin A. The immuno profile supports a squamous cell carcinoma. The specimen will be sent for analysis of PDL-1 ([employer]). Those results will be documented in a separate [employer] report. PM/pi Consultations: Hematology/Oncology Radiation Oncology Thoracic Surgery (Yanick Flores MD) Medication Reconciliation New Medications: Polyethylene Glycol 3350 (Miralax) 1 Pow Pow 17 GM PO DAILY PRN for Constipation for 30 Days, #510 GM Fentanyl (Fentanyl) 25 Mcg Tdsy 25 MCG TD Q3D@0900 for 30 Days, #10 PATCH Prednisone (Prednisone) 10 Mg Tab 10 MG PO DAILY for 6 Days, #5 TAB Take 1 tablet daily x 3 days, then Take 1/2 tablet daily x 3 days, then STOP [Nicotine] () 21 TDSY 1 PATCH TD QAM for 30 Days, #30 PATCH 1 Refill Changed Medications: Ipratropium-Albuterol (Duoneb) 3 Ml Nebu 1 TREATMENT INH QID PRN for SOB/Wheezing for 30 Days, #60 INHA (Medication details modified) Oxycodone/Acetaminophen 10MG/325MG (Percocet 10MG/325MG) 1 Tab Tab 1 TAB PO Q4H PRN for Pain for 30 Days, #180 TAB (Changed from: QID; 120) Continued Medications: Aspirin (Aspirin Ec) 81 Mg Tab 81 MG PO DAILY Cholecalciferol (Vitamin D) 1,000 Unit Tab 1000 UNIT PO DAILY Lorazepam (Lorazepam) 0.5 Mg Tab 0.5 MG PO QD PRN for ANXIETY for 30 Days, #20 TAB Meloxicam (Mobic) 7.5 Mg Tab 1 TAB PO BID for 30 Days, #60 TAB 2 Refills Mometasone Furoate-Formoterol (Dulera 200/5 Mcg) 1 Aer Aer 2 PUFFS INH BID, AER Multiple Vitamins W/ Minerals (Multivitamin Adults 50+) 1 Tab Tab 1 TAB PO DAILY Simvastatin (Zocor) 10 Mg Tab 10 MG PO QPM, TAB Discharge Exam A 10 point review of systems was negative unless stated in the hospital course Physical Exam: General Appearance: WD/WN, no apparent distress, + thin Eyes: normal inspection, EOMI ENT: hearing grossly normal, pharynx normal Neck: supple, no adenopathy, no JVD Respiratory/Chest: lungs clear, no respiratory distress, + pertinent finding (coarse breath sounds at bases) Cardiovascular: regular rate, rhythm, no gallop, no murmur Abdomen / GI: normal bowel sounds, non tender, soft Extremities: no calf tenderness, no pedal edema Neurologic/Psychiatric: alert, normal mood/affect, oriented x 3 Skin: normal color, warm/dry, no rash Lymphatic: no adenopathy (Yanick Flores MD) Review of Systems: Constitutional: No fever Respiratory: + shortness of breath (baseline) Cardiovascular: No chest pain Abdomen: No pain Physical Exam: General Appearance: no apparent distress Respiratory/Chest: + decreased breath sounds Cardiovascular: regular rate, rhythm Abdomen / GI: soft Neurologic/Psychiatric: alert, oriented x 3 (Mariebll Lamar M.D.) Hospital Course 71 year old female who was originally admitted for a severe COPD exacerbation. She was in the process of being worked-up for probable underlying lung neoplasm stemming from a right lower lobe mass noted since 2012 and has steadily increased in size from 3 cm then to 11 cm now. During admission work-up for the lung mass continued. In conjunction with thoracic surgery a biopsy of the right lower lung was done under CT guidance and was ultimately reported as squamous cell carcinoma of the lung. Unfortunately, CT also revealed evidence of metastatic disease to the bone, with invasion of T9 and pathological fracture of the 8th rib. There was a plan for navigational bronchoscopy for further pathological specimens but given metastatic nature of disease, this procedure was ultimately cancelled. 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 Ariza as outpatient for further recommendations - CT simulation done by radiation oncology with view for palliative radiotherapy - Palliative care was consulted and discussion about goals of care was initiated by myself as well as the Palliative care TOOL KEEPER. We discussed the option of hospice care. The patient was receptive to the idea but at discharge ultimately chose to go with home nursing. We have re-iterated to her pursuing hospice is an option at a later date if she chooses to do. Bone Pain - 2/2 metastatic disease - Awaiting palliative radiotherapy - Sent home with medications as noted above Fentanyl Patch 25 mcg q 3 d Percocet 10/325 mg q 4 h Meloxicam - Miralax prescribed for constipation Acute COPD Exacerbation - Improved with steroids and nebulizers - Patient re-started on home inhalers - Has been prescribed with PRN Duonebs for times when controller medication does not help - Completing short steroid taper for 5 days after discharge home - Patient required 3 L NC at discharge; was set up with home oxygen - Anticipate need for oxygen for foreseeable future in light of combination of COPD with metastatic lung cancer UTI with altered mental status - Treated with 3 days; Rocephin - Improved clinically; mentating normally at discharge Hyperlipidemia - Continued Simvastatin Hypertension - Continued Lisinopril Anxiety - Continue Clonazepam DVT Prophylaxis - High risk for VTE due to malignancy - Heparin 5000 s.c TID Code Status - DNR - POLST form was addressed prior to discharge - Patient was being discharged home with home nursing; have discussed option of hospice in the future. Total Time Spent: Greater than 30 minutes This includes examination of the patient, discharge planning, medication reconciliation, and communication with other providers. (Yanick Flores MD) I have reviewed the medical record and performed a history and physical examination of this patient today. I have discussed the case with Dr. Flores. The above note reflects my findings, conclusions, and recommendations. Total Time Spent: Greater than 30 minutes (35) (Maribell Lamar M.D.) Discharge Instructions Please refer to the electronic Patient Visit Report (Discharge Instructions) for additional information. (Yanick Flores MD) Follow-Up Palliative Radiotherapy Hematology/Oncology Primary Care Physician (Yanick Flores MD) Additional Copies To Griffin Ariza D.O.; Veeral. Willams MD; Leah Cisneros M.D.
[2017-03-12] MEDS ORDERED: SYMIN8045 INH (12:43)
[2017-03-12] MEDS ORDERED: ATV/1 PO (12:46)
[2017-03-12] MEDS ORDERED: OXYC-106 PO (12:46)
[2017-03-12] MEDS ORDERED: OXYC-57 PO (12:46)
[2017-03-12] MEDS ORDERED: LEVA45AE INH (12:49)
[2017-03-15] MEDS ORDERED: ONDA8TAB62 SL (12:57)
[2017-03-15] MEDS ORDERED: FENT1DIS85 TOP (12:57)
[2017-03-19] MEDS ORDERED: FENT1DIS85 TOP (13:08)
[2017-03-26] MEDS ORDERED: ONDA4TAB46 PO (12:35)
[2017-03-26] MEDS ORDERED: FNTTP25 (12:37)
[2017-03-26] MEDS ORDERED: DRGTP12 (12:37)
[2017-03-30] MEDS ORDERED: SILV1CRE73 TOP (11:09)
[2017-03-30] MEDS ORDERED: MAGIC1 PO (11:09)
[2017-04-25] MEDS ORDERED: Selenium PO (14:44)
[2017-04-25] MEDS ORDERED: SENN-61 PO (14:44)
[2017-06-15] MEDS ORDERED: MRPSR30 PO (11:27)
[2017-08-02] MEDS ORDERED: CLON0.5T3 PO (11:44)
== END 2017-02-21 15:26 | disposition home health service (06) | DRG 180 ==
LOC: ENRESERVDT → ENRESERVTM → EDBD 20:40 → C.EDC 20:41 → EDBEDREQSVC 02-12 00:38 → C.2E 02-12 00:40 → EDBEDREQ 02-12 00:42 → C.MS2W 02-20 12:20
PROVIDERS: ADMIT Student in an Organized Health Care Education/Training Program; ATTEND Family Medicine
PROC: 0BBF3ZX Excision of Right Lower Lung Lobe, Percutaneous Approach, Diagnostic (ICD-10-PCS; principal; 2017-02-13)
DX: C34.31 Malignant neoplasm of lower lobe, right bronchus or lung (principal); J96.01 Acute respiratory failure with hypoxia; J44.1 Chronic obstructive pulmonary disease with (acute) exacerbation; E87.1 Hypo-osmolality and hyponatremia; N39.0 Urinary tract infection, site not specified; E78.00 Pure hypercholesterolemia, unspecified; F41.9 Anxiety disorder, unspecified; M89.8X9 Other specified disorders of bone, unspecified site; Z51.5 Encounter for palliative care; Z66 Do not resuscitate; Z79.82 Long term (current) use of aspirin; Z79.899 Other long term (current) drug therapy; F17.200 Nicotine dependence, unspecified, uncomplicated

== ENCOUNTER → 2017-04-25 | Outpatient (CLI) | payer OTHER ==
[~2017-04-25] MED LIST changes: +DRGTP12; +FNTTP25; +LEVA45AE INH; -LORA-741 PO; +MAGIC1 PO; -MOME200A INH; +MRPSR30 PO; -MULT-916 PO; +ONDA4TAB46 PO; +ONDA8TAB62 SL; +OXYC-106 PO; +OXYC-57 PO; -PRD50 PO; +SENN-61 PO; +SILV1CRE73 TOP; +SYMIN8045 INH; +Selenium PO
[2017-04-25 14:17] VITALS: BP 109/69; PULSE 92; TEMP 36.7; O2SAT 97
--- NOTE | 2017-04-25 15:05 | Radiation Oncology Follow-Up ---
Radiation Oncology Follow-Up Date of Visit Apr 25, 2017. Reason For Visit One-month follow-up Radiation Completion Date 03/28/17 Diagnosis (1) Mass of lung Onset Date: 02/13/2017 Stage: IV Permanent Comment: Admission with shortness of breath and weight loss Finding of right lower lobe lung mass Status post bronchoscopy and biopsy Squamous cell carcinoma Status post completion of palliative radiation therapy 03/28/2017 received 4000 cGy Last Edited By: Catalina Williamson on Apr 09, 2017 11:38 History of Present Illness Ms. Jain is a 71-year-old female who recently was admitted to the hospital for exertional dyspnea and weight loss. Previously, the patient was worked up for a right lower lobe mass and did have a CT-guided biopsy in August 2013 that only revealed rare atypical squamous cells but no evidence of carcinoma. The patient did have a CT of the thorax on 02/17/2014 which did show significantly enlargement of the right lower lobe mass which now measured 4.5 cm. More recently, the patient did have a CT of the thorax on 10/19/2016 which revealed: "IMPRESSION: 1. Significant increase in size in the 11 cm necrotic mass which occupies the majority of the right lower lobe and obstruction of right lower lobe bronchi. 2. Interval development of a spiculated 2.1 x 1.2 cm nodule within the left lower lobe and a 5 mm nodule within the lingula. This could represent metachronous primary bronchogenic malignancy versus metastatic disease. 3. A 4 cm mass within the upper pole of the left kidney. This likely represents a renal cell carcinoma. 4. Small nodular densities and interlobular septal thickening within the base of the right lower lobe which favors post obstructive pneumonitis. However, metastatic disease could also have a similar appearance. 6. Emphysema. 7. Mild cortical/periosteal thickening within the right posterior eighth and ninth ribs adjacent to the large lower lobe mass. However, there is no associated bony destruction." The patient did have multiple episodes of lost to follow-up and eventually was saw her new primary care physician, Dr. Cisneros, who urgently referred the patient to medical oncology, Dr. Ariza. Dr. Ariza recommended a PET CT scan and biopsy of the mass. The PET/CT was completed on 02/05/2017 which revealed: "IMPRESSION: 1. Large right hemithoracic necrotic mass showing hilar and mediastinal extension. 2. This shows a considerable increase in metabolic activity characteristics and is consistent with neoplasm. 3. Left hemithoracic nodules shown a moderate increase in metabolic activity consistent with metastatic deposits. 4. Soft tissue mass in the pancreatic tail showing intense post contrast activity. This may be a primary or secondary neoplastic process." She did have a CT thorax completed on 02/05/2017 which revealed: "IMPRESSION: 1. Right lower lobe pulmonary mass measuring in excess of 11 cm with extension to the mediastinum, and progressive narrowing of the right bronchus intermedius 2. Stable 2 cm spiculated left lower lobe pulmonary nodule. Interval development of a 1 cm irregularly marginated second left lower lobe pulmonary nodule. Stable 4 mm pulmonary nodule within the lingula 3. T9 compression fracture with erosion of the lateral cortex of the T9 vertebral body. Direct neoplastic extension into the vertebral body is felt likely 4. Moderate to severe emphysema 5. Interval development of a right pleural effusion 6. Destructive posterior T8 rib lesion , viewed as highly suspicious for metastatic disease." On this admission, the patient does admit to significant weight loss and exertional dyspnea however denies hemoptysis. She underwent a bronchoscopy 02/13/2017. Pathology revealed squamous cell carcinoma. Specimen [id number]. Our office was consult for palliative radiation. She completed radiation therapy 03/28/2017. She received 4000 cGy. 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 This was treated with Silvadene cream. She stated that there was some dryness and flaking of skin. This has completely resolved. Skin irritation was greatly helped with Silvadene cream. She also had radiation esophagitis with some discomfort with swallowing at the end of treatment. She no longer has any discomfort with swallowing. Her respiratory status is stable though will have increased shortness of breath when out in the humidity. She has a decubitus ulcer in the sacral area. This is being followed by the wound clinic. She now has a wound VAC in place. This treatment began approximately 3 weeks ago. Her appetite is good. She unfortunately has lost 2 pounds. She's for recheck visit with Dr. Ariza today. Allergies Uncoded Allergies: anesthesia gas (Allergy, Unknown, sick, 03/17/16) Home Medications Scheduled Aspirin (Aspirin Ec), 81 MG PO DAILY Budesonide/Formoterol Fumarate (Symbicort 80-4.5 Mcg/Act), 2 PUFFS INH BID Cholecalciferol (Vitamin D), 1,000 UNIT PO DAILY Fentanyl (Fentanyl), PATCH Q72H Fentanyl (Fentanyl), PATCH Q72H Senna (Senokot), 1 TAB PO DAILY Simvastatin (Zocor), 10 MG PO QPM [Selenium ], 1 TAB PO DAILY Scheduled PRN Ipratropium-Albuterol (Duoneb), 1 TREATMENT INH QID PRN for SOB/Wheezing Levalbuterol Tartrate (Levalbuterol Tartrate Hfa), 2 PUFFS INH Q6 PRN for Shortness of Breath Lorazepam (Lorazepam), 0.5 MG PO QD PRN for ANXIETY Ondansetron Hcl (Zofran), 4 MG PO q8hprn PRN for Nausea Ondansetron Odt (Zofran Odt), 8 MG SL Q6H PRN for Nausea Oxycodone/Acetaminophen 10MG/325MG (Percocet 10MG/325MG), 1 TAB PO HS PRN for Pain Oxycodone/Acetaminophen 5MG/325MG (Percocet 5MG/325MG), 1 TABLET PO Q4H PRN for Pain Review of Systems Gastrointestinal: Symptoms: Constipation GI Comments: Eating protein bars;Constipation manageable w/stool softner; Oral: Symptoms: No Problems Other Oral Symptoms: No dysphagia; Respiratory: Symptoms: SOB With Exertion Other Respiratory: Wears oxygen at 2l/min via nasal cannula PRN; Urinary: Symptoms: WNL Skin: Symptoms: No Problems Other Skin Symptoms: See below notations; Additional Notes: She completed a distress management report and answered "no" to all questions other than she has concerns about help at home and caregivers. She is concerned about self-care and her breathing. She does also concerned about her medical treatment choices and pain. She'll be seeing Dr. begum this afternoon to discuss cancer treatment choices. Physical Exam Vital Signs Date Time Temp Pulse Resp B/P (MAP) Pulse Ox O2 Delivery O2 Flow Rate FiO2 04/25/17 14:17 36.7 92 16 109/69 97 General Appearance: no apparent distress, + thin Eyes: normal inspection, EOMI ENT: normal ENT inspection Neck: no adenopathy, thyroid normal Respiratory/Chest: no respiratory distress, no accessory muscle use, + decreased breath sounds, + pertinent finding (there is resolving hyperpigmentation of the right posterior thorax. There is no wet or dry desquamation.) Cardiovascular: regular rate, rhythm, no gallop, no murmur Extremities: no pedal edema Neurologic/Psychiatric: no motor/sensory deficits, alert, normal mood/affect Skin: warm/dry Laboratory Studies Test 02/11/17 20:48 02/11/17 23:00 02/12/17 01:55 02/13/17 00:00 Magnesium Level mg/dl (1.8-2.4) 2.3 mg/dl (1.8-2.4) Total Creatine Kinase U/L (26-192) 31 U/L (26-192) Creatine Kinase MB 2.1 ng/ml (0.5-3.6) Creatine Kinase MB Ratio (0-3.0) Troponin I < 0.015 ng/ml (0-0.045) Pro-B-Type Natriuretic Peptide 1513 pg/ml (0-900) Chemistry Specimen Hemolysis Arterial Blood pH 7.47 (7.35-7.45) Arterial Blood Partial Pressure CO2 36 mmHg (35-46) Arterial Blood Partial Pressure O2 87 mm/Hg (80-95) Arterial Blood HCO3 26 mmol/L (19-24) Arterial Blood Oxygen Saturation 94.6 % (90-95) Arterial Blood Base Excess 1.9 mEq/L (-9-1.8) Arterial Blood Gas Delivery 2 L [place] Test POS (POS) Direct Bilirubin 0.1 mg/dl (0-0.2) Ionized Calcium 1.27 mmol/l (1.12-1.32) PD-L1 Lung Pembrolizumab (IHC) See Comment Test 02/13/17 06:03 02/14/17 05:30 02/16/17 07:10 02/16/17 10:50 Red Blood Cell Morphology Unremarkable Prothrombin Time 11.4 SECONDS (9.0-12.0) 11.3 SECONDS (9.0-12.0) Prothrombin Time INR 1.1 (0.9-1.1) 1.1 (0.9-1.1) Anisocytosis PRESENT Estimated Average Glucose 117 mg/dl Hemoglobin A1c 5.7 % (4.5-5.6) Venous Blood pH 7.49 (7.36-7.41) Venous Blood Partial Pressure CO2 44 mmHg (38.0-50.0) Venous Blood Partial Pressure O2 20 mmHg Venous Blood HCO3 33 mmol/L Venous Blood Oxygen Saturation < 60.0 % Venous Blood Base Excess 8.4 mmol/L Urine Color YELLOW Urine Appearance TURBID (CLEAR) Urine pH 7.5 (4.5-7.5) Urine Specific [place] 1.019 (1.000-1.030) Urine Protein NEG (NEG) Urine Glucose (UA) NEG (NEG) Urine Ketones NEG (NEG) Urine Occult Blood 2+ (NEG) Urine Nitrite NEG (NEG) Urine Bilirubin NEG (NEG) Urine Urobilinogen NEG (NEG) Urine Leukocyte Esterase NEG (NEG) Urine WBC (Auto) 5-10 /hpf (0-5) Urine RBC (Auto) 0-4 /hpf (0-4) Urine Hyaline Casts (Auto) 1-5 /lpf (0-5) Urine Epithelial Cells (Auto) >30 /lpf (0-5) Urine Bacteria (Auto) NEG (NEG) Urine Renal Epithelial Cells /lpf (0-5) Urine Yeast (Auto) PRESENT (NONE PRSENT) Test 02/16/17 11:29 02/19/17 05:20 02/20/17 05:39 02/21/17 07:10 POC Glucose 121 mg/dl (70-90) 102 mg/dl (70-90) Red Blood Cell Morphology Unremarkable Est Creatinine Clear Calc Drug Dose 38.8 ml/min 45.9 ml/min Test 02/28/17 19:24 03/07/17 17:55 03/21/17 12:05 03/28/17 13:00 Spherocytes 1+ Hypersegmented Polys 1+ Anisocytosis PRESENT White Blood Count 19.37 K/uL (4.8-10.8) 14.10 K/uL (4.8-10.8) Red Blood Count 3.99 M/uL (4.2-5.4) 3.39 M/uL (4.2-5.4) Hemoglobin 10.2 g/dL (12.0-16.0) 8.8 g/dL (12.0-16.0) Hematocrit 31.7 % (37-47) 27.2 % (37-47) Mean Corpuscular Volume 79.4 fL (80-100) 80.2 fL (80-100) Mean Corpuscular Hemoglobin 25.6 pg (25-34) 26.0 pg (25-34) Mean Corpuscular Hemoglobin Concent 32.2 g/dl (32-36) 32.4 g/dl (32-36) Platelet Count 805 K/uL (130-400) 619 K/uL (130-400) Mean Platelet Volume 7.7 fL (7.4-10.4) 7.4 fL (7.4-10.4) Neutrophils (%) (Auto) 89.4 % 88.0 % Lymphocytes (%) (Auto) 2.4 % 7.0 % Monocytes (%) (Auto) 7.2 % 3.9 % Eosinophils (%) (Auto) 0.2 % 0.5 % Basophils (%) (Auto) 0.1 % 0.2 % Neutrophils # (Auto) 17.33 K/uL (1.4-6.5) 12.41 K/uL (1.4-6.5) Lymphocytes # (Auto) 0.46 K/uL (1.2-3.4) 0.99 K/uL (1.2-3.4) Monocytes # (Auto) 1.40 K/uL (0.11-0.59) 0.55 K/uL (0.11-0.59) Eosinophils # (Auto) 0.04 K/uL (0-0.5) 0.07 K/uL (0-0.5) Basophils # (Auto) 0.01 K/uL (0-0.2) 0.03 K/uL (0-0.2) RDW Standard Deviation 49.4 fL (36.4-46.3) 51.0 fL (36.4-46.3) RDW Coefficient of Variation 17.0 % (11.5-14.5) 17.3 % (11.5-14.5) Immature Granulocyte % (Auto) 0.7 % 0.4 % Immature Granulocyte # (Auto) 0.13 K/uL (0.00-0.02) 0.05 K/uL (0.00-0.02) Sodium Level 130 mmol/L (136-145) 130 mmol/L (136-145) Potassium Level 4.3 mmol/L (3.5-5.1) 4.1 mmol/L (3.5-5.1) Chloride Level 94 mmol/L (98-107) 94 mmol/L (98-107) Carbon Dioxide Level 29 mmol/L (21-32) 29 mmol/L (21-32) Anion Gap 7.0 mmol/L (3-11) 7.0 mmol/L (3-11) Blood Urea Nitrogen 16 mg/dl (7-18) 17 mg/dl (7-18) Creatinine 0.99 mg/dl (0.60-1.20) 0.99 mg/dl (0.60-1.20) Estimated GFR () 66.9 66.9 Estimated GFR (Non- 57.7 57.7 BUN/Creatinine Ratio 16.4 (10-20) 17.2 (10-20) Random Glucose 130 mg/dl (70-99) 109 mg/dl (70-99) Calcium Level 9.5 mg/dl (8.5-10.1) 9.5 mg/dl (8.5-10.1) Total Bilirubin 0.4 mg/dl (0.2-1) 0.2 mg/dl (0.2-1) Aspartate Amino Transferase (AST) 16 U/L (15-37) 17 U/L (15-37) Alanine Aminotransferase (ALT) 17 U/L (12-78) 14 U/L (12-78) Alkaline Phosphatase 158 U/L (45-117) 134 U/L (45-117) Total Protein 6.7 gm/dl (6.4-8.2) 6.3 gm/dl (6.4-8.2) Albumin 1.7 gm/dl (3.4-5.0) 1.7 gm/dl (3.4-5.0) Globulin 5.0 gm/dl (2.5-4.0) 4.6 gm/dl (2.5-4.0) Albumin/Globulin Ratio 0.3 (0.9-2) 0.4 (0.9-2) Polychromasia 1+ Assessment & Plan Plan: Continue follow-up with Dr. Ariza she'll be seeing him this afternoon. The radiation dermatitis has greatly improved and does not require any further treatment. We discussed increased caloric intake. Her caregiver today discuss that she is working more protein into her diet. She may return to our office in 6 months. She may call if she has any questions or concerns in the interim. Total Time In Follow-Up I spent 15 minutes speaking to the patient and performing examination. I spent 15 minutes reviewing information and completing this note. Copy To Sanjay Pedroza D.O.Int.Med.; Nash Tate MD; Griffin Ariza D.O.
== END | disposition home or self-care (01) ==
LOC: C.ONC 14:06
PROVIDERS: ATTEND Physician Assistant Medical
DX: Z08 Encounter for follow-up examination after completed treatment for malignant neoplasm (principal); Z92.3 Personal history of irradiation; Z85.118 Personal history of other malignant neoplasm of bronchus and lung

== ENCOUNTER → 2017-07-10 | Outpatient (CLI) | payer OTHER ==
[~2017-07-10] MED LIST changes: -DRGTP12; -FNTTP25; -MAGIC1 PO; -SILV1CRE73 TOP
[2017-07-10 17:47] LABS: URINE APPEARANCE CLOUDY (CLEAR); URINE BILIRUBIN NEG (NEG); URINE COLOR DK YELLOW; URINE EPITHELIAL CELL AUTO >30 /lpf (0-5); URINE NITRITE NEG (NEG); URINE SPECIFIC GRAVITY 1.022 (1.000-1.030); UROBILINOGEN NEG (NEG)
[2017-07-10 17:48] LABS: MANUAL MICROSCOPIC REQUIRED? NO; REVIEW REQ? YES
== END | disposition home or self-care (01) ==
LOC: C.LABSPEC 15:00
PROVIDERS: ATTEND Internal Medicine Hematology & Oncology
DX: C34.31 Malignant neoplasm of lower lobe, right bronchus or lung (principal)